=== PATIENT | male | born 1930 | race Caucasian/White ===

== ENCOUNTER 2018-03-06 13:38 | Inpatient (IN) ==
--- NOTE | 2018-03-06 14:03 | Emergency Department Note ---
Disposition Clinical Impression: JAIRON (acute kidney injury) Bladder cancer Qualifiers: Bladder location: unspecified site Qualified Code(s): C67.9 - Malignant neoplasm of bladder, unspecified Hydronephrosis Qualifiers: Hydronephrosis type: other Qualified Code(s): N13.39 - Other hydronephrosis Disposition: Admitted As Inpatient Condition: Fair Time of Disposition: 16:05 General Adult HPI - General Chief complaint: ED Abdominal Pain Stated complaint: right flank pain Time Seen by Provider: 03/06/18 13:40 Source: patient, EMS Limitations: no limitations Nursing Notes Reviewed: Yes Vital Signs Reviewed: Yes - History of Present Illness HPI Narrative: Austin Finn is an 87 year old male presenting to the emergency department for RLQ pain and urinary retention. He states that both issues began approximately 3 hours ago. He states that the pain is constant, does not radiate, and describes it as a dull ache. 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 He states that 2 years ago he had a stent placed in his right kidney that is periodically replaced every 6 months with the most recent replacement being in January of this year when he also had a tumor removed. He states that 1 year ago the stent became displaced, and he presented to the ED with similar symptoms of RLQ pain and urinary retention. He also states that he has a history of nephrolithiasis, but denies any CVA tederness. He denies any nausea, vomiting, diarrhea, dysuria, hematuria, fevers, or chills. He states this last BM was this morning and WNL and non-bloody. Patient's last oral intake was at noon today. I have reperformed and reviewed the history documented by the medical student, and I confirm its accuracy except as noted below. Onset (ago): hour(s) (3) Location: abdomen Radiation: non-radiation Pain Severity: moderate Pain Scale: 7 Quality: aching, dull Consistency: constant Improves with: nothing Worsens with: nothing Associated symptoms: Reports: other (urinary retention) Treatments Prior to Arrival: none - Related Data Home Medications Medication Instructions Recorded Confirmed Aspirin [Lo-Dose Aspirin EC] 81 mg PO DAILY 07/22/17 03/06/18 Atorvastatin Calcium [Lipitor] 40 mg PO HS 07/22/17 03/06/18 Carvedilol [Coreg] 6.25 mg PO BIDWM 07/22/17 03/06/18 Ferrous Sulfate 325 mg PO DAILY 07/22/17 03/06/18 Ketoconazole 2% CRM [Nizoral Cream] 1 appl TP DAILY 07/22/17 03/06/18 Lactulose 30 ml PO BID PRN 07/22/17 03/06/18 Pantoprazole Sodium [Protonix] 40 mg PO DAILY 07/22/17 03/06/18 Polyethylene Glycol 3350 [MiraLAX] 17 gm PO Q12H PRN 07/22/17 03/06/18 Selenium Sulfide 1 appl TP DAILY PRN 07/22/17 03/06/18 Sodium Bicarbonate 650 mg PO BID 07/22/17 03/06/18 amLODIPine [Norvasc] 5 mg PO DAILY 07/22/17 03/06/18 Melatonin [Melatin] 3 mg PO HS PRN 08/10/17 03/06/18 Dextran 70/Hypromellose 1 drop BOTH EYES BID 01/29/18 03/06/18 [Artificial Tears Eye Drops] Lidocaine Patch [Lidoderm 5% patch] 1 patch TP DAILY PRN 01/29/18 03/06/18 Methyl Salicylate/Menthol [Muscle 35 gm TP Q12H PRN 01/29/18 03/06/18 Rub Cream] Vit C/Vit E AC/Lut/Mineral 1 1 each PO BID 01/29/18 03/06/18 [Prosight with Lutein Capsule] Allergies Allergy/AdvReac Type Severity Reaction Status Date / Time No Known Allergies Allergy Verified 01/29/18 07:22 Constitutional: Denies: fever, chills, weakness, weight change Eyes: Denies: eye pain, eye discharge, vision change ENT ED: Denies: ear pain, throat pain, dental pain, hearing loss, epistaxis, congestion, dysphagia Cardiovascular: Denies: chest pain, palpitations, dyspnea on exertion, edema, syncope Respiratory: Denies: cough, dyspnea, wheezes, hemoptysis, stridor Gastrointestinal: Reports: as per HPI, abdominal pain. Denies: nausea, vomiting, diarrhea, constipation, hematemesis, melena, hematochezia Genitourinary: Reports: urgency. Denies: dysuria, frequency, hematuria Musculoskeletal: Denies: back pain, neck pain, arthralgia, myalgia Integumentary: Denies: rash, abrasion, lesions Neurological: Denies: headache, weakness, numbness, paresthesias, confusion, abnormal gait, vertigo Psychiatric: Denies: anxiety, depression, suicidal thoughts, homicidal thoughts, auditory hallucinations, visual hallucinations Endocrine: Denies: fatigue Hematological/Lymphatic: Denies: easy bleeding, easy bruising Allergic/Immunologic: Denies: facial swelling, urticaria Past Medical History - Past Medical History Attestation: Yes The following information was validated with the patient. Source: patient Medical history: Reports: cancer, GERD, hyperlipidemia, hypertension, renal disease Psychiatric history: Reports: anxiety - Social History Smoking Status: Never smoker Smokeless Tobacco Status: No Alcohol use: Reports: none Drug use: Reports: none Physical Exam - General Limitations: no limitations General appearance: alert, in no apparent distress - Head Head exam: atraumatic, normocephalic, normal inspection - Eye Eye exam: Present: normal appearance, PERRL, EOMI - ENT ENT exam: normal exam, normal oropharynx, mucous membranes moist - Neck Neck exam: Present: normal inspection, full ROM, trachea midline - Chest Chest inspection: Present: normal inspection, symmetric chest wall rise - Respiratory Respiratory exam: Present: normal lung sounds bilaterally - Cardiovascular Cardiovascular exam: Present: regular rate, normal rhythm, normal heart sounds - Abdominal Exam Abdominal exam: Present: soft, tenderness (Suprapubic, right lower quadrant), scar (healed surgical scars). Absent: distention, guarding, rebound, rigidity Abdominal tenderness: Present: RLQ - Extremities Exam Extremities exam: Present: normal inspection, full ROM. Absent: tenderness, pedal edema - Back Exam Back exam: Present: normal inspection, full ROM, tenderness (Right flank), CVA tenderness (R) - Neurological Exam Neurological exam: Present: alert, oriented X3 - Psychiatric Psychiatric exam: Present: normal affect, normal mood - Skin Skin exam: Present: warm, dry, intact, normal color Course Course Narrative: Male patient was the history of left nephrectomy presenting with likely complications due to his stent placed in January on the right. Patient reports that he has not been able to urinate for 3 hours prior to coming to the emergency department. He has no other complaints at this time. He is requesting pain medication. We will get a workup on patient and contact urology. We did do a bedside ultrasound which showed a decompressed bladder and right-sided hydronephrosis. Basic labs were ordered. Patient has not made any urine while in the emergency department. He is complaining of pain. The pain seems to be more so on the right lower quadrant suprapubic area. He does have some mild right flank pain as well. - Reevaluation(s) Reevaluation #1: Patient's creatinine is elevated. This is higher than it has been before. We will discuss this with Dr. Maza. Time: 15:40 - Consultations Consultation #1: I spoke with Dr. Maza. We discussed that the patient has a solitary kidney and likely hydronephrosis on bedside ultrasound as well as a compressed bladder. He expresses understanding and states the plan will be to keep patient nothing by mouth tonight for likely surgery in the morning. Time: 13:58 Consultation #2: I recontacted Dr. Maza with urology. We discussed that the patient's creatinine is elevated I again expressed the patient has a solitary kidney and my concerns of the patient's creatinine is elevated with only a single kidney.. He states that the plan is still for likely surgery in the morning. Time: 15:57 Vital Signs Temperature 97.8 F 03/06/18 13:43 Pulse Rate 65 03/06/18 13:43 Respiratory Rate 18 03/06/18 13:43 Blood Pressure 167/82 03/06/18 13:43 O2 Sat by Pulse Oximetry 100 03/06/18 13:43 Temperature 97.8 F 03/06/18 13:43 Pulse Rate 65 03/06/18 13:43 Respiratory Rate 18 03/06/18 13:43 Blood Pressure 167/82 03/06/18 13:43 O2 Sat by Pulse Oximetry 100 03/06/18 13:43 Oxygen Delivery Oxygen Delivery Room Air Procedures - Ultrasound-Other Narrative: Bedside ultrasound performed by me showed a right-sided hydronephrosis. As well as a decompressed bladder. Medical Decision Making - Medical Records Medical records reviewed: Yes I reviewed the patient's medical records. - Lab Data Lab results reviewed: Yes I reviewed the patient's lab results. Result diagrams: 03/06/18 14:53 03/06/18 14:53 Lab Results 03/06/18 03/06/18 Range/Units 14:53 14:53 WBC 13.4 H (4.3-11.1) K/mcL RBC 4.28 (4.19-5.50) M/mcL Hgb 11.9 L (12.9-16.9) g/dL Hct 37.5 (37.5-50.1) % MCV 87.6 (83.0-100.0) fL MCH 27.8 L (28.0-33.3) pg MCHC 31.7 (31.6-35.5) g/dL RDW 14.4 (11.5-14.5) % Plt Count 266 (140-400) K/mcL MPV 9.7 (9.4-12.4) fL Immature Gran % 0.3 (0-4) % Seg Neutrophils % 79.2 % Lymphocytes % 10.8 % Monocytes % 9.1 % Eosinophils % 0.4 % Basophils % 0.2 % Neutrophils # 10.6 H (1.6-8.9) K/mcL Lymphocytes # 1.5 (0.6-4.6) K/mcL Monocytes # 1.2 (0.0-1.3) K/mcL Eosinophils # 0.1 (0.0-0.6) K/mcL Basophils # 0.0 (0.0-0.2) K/mcL Immature Plt Fraction 1.7 (1.1-6.1) % Sodium 136 (136-145) mEq/L Potassium 4.8 (3.5-5.1) mEq/L Chloride 105 (98-107) mEq/L Carbon Dioxide 26 (23-29) mEq/L BUN 31 H (8-23) mg/dL Creatinine 3.13 H (0.70-1.30) mg/dL Est GFR ( Amer) 23 L (> 60) Est GFR (Non-Af Amer) 19 L (> 60) BUN/Creatinine Ratio 10 (6-26) Glucose 123 H (70-105) mg/dL Calculated Osmolality 290 (280-300) Calcium 9.0 (8.6-10.3) mg/dL - EKG Data EKG #1 EKG attestation: Yes I reviewed and interpreted this EKG. EKG results narrative: Normal sinus rhythm at a rate of 67. IA interval was not measured. QRS duration is 94. QT is 392. QTC is 414. No signs of acute ischemia. No signs of the pretibial forgot it. No significant change from previous EKG dated 07/30/2014. He was bradycardic at that time and the patient is not bradycardic at this time. Attestation Statement - Attestation Attestation: I examined this patient and my medical decision-making was reviewed with the Resident Physician, Dr. Almeida. I agree with the documented findings, disposition and treatment plan as described except to the extent set forth below. Patient is an 87-year-old white male with a history of metastatic bladder CA with resulting left nephrectomy 3 years ago who presents emergency permit today with right lower quadrant pain and urinary retention over the past 3 hours. Patient rates his pain as 7 out of 10 in severity and states he has not passed any urine in the past 3 hours. Patient has a renal stent in the right which is his solitary kidney which she has had revision as recently as a year ago due to failure of the extent which presented with very similar symptoms to today. Patient denies any fevers or chills, no nausea vomiting, no back or flank pain, no other associated symptoms. I agree with patient's physical exam findings as documented. Vital signs are stable. Bedside ultrasound was performed by Dr. Almeida on arrival and patient was found to have a collapsed bladder as well as right hydronephrosis. Based on this initial ultrasound we contacted urology, Dr. Maza is medication aid today and discussed his situation with failed stents in the past recurrent right lower quadrant pain and urinary retention unable to pass any urine and associated ult rasound findings. He agreed to see the patient in consultation after admission to the hospitalist service. Patient had labs ordered, including urinalysis and is hemodynamically stable at this time will receive pain and nausea medications for symptoms. Serum creatinine came back significantly elevated for him compared to prior values at greater than 3. We did call back Dr. Maza to notify him of this elevated creatinine inability to urinate and right [place] with a solitary kidney. He stated he would see the patient in the morning. Patient was admitted to the hospitalist service for further evaluation and management he remains hemodynamically stable at this time.
[2018-03-06] MEDS ORDERED: *HR* FentaNYL (PF) 100 MCG/2 ML VIAL IVP ONE (14:38)
[2018-03-06] MEDS ORDERED: *HR* HYDROmorphone 2 MG/ML SYRINGE IVP STA (14:43)
[2018-03-06 15:05] LABS: Basophils % 0.2 %; Eosinophils # 0.1 K/mcL (0.0-0.6); Eosinophils % 0.4 %; Hematocrit 37.5 % (37.5-50.1); Hemoglobin 11.9 g/dL (12.9-16.9); Immature Granulocytes % 0.3 % (0-4); Immature Platelets 1.7 % (1.1-6.1); Lymphocytes # 1.5 K/mcL (0.6-4.6); Lymphocytes % 10.8 %; Mean Corpuscular HGB Conc 31.7 g/dL (31.6-35.5); Mean Corpuscular Hemoglobin 27.8 pg (28.0-33.3); Mean Corpuscular Volume 87.6 fL (83.0-100.0); Mean Platelet Volume 9.7 fL (9.4-12.4); Monocytes # 1.2 K/mcL (0.0-1.3); Monocytes % 9.1 %; Neutrophils # 10.6 K/mcL (1.6-8.9); Platelet Count 266 K/mcL (140-400); Red Blood Count 4.28 M/mcL (4.19-5.50); Red Cell Distribution Width 14.4 % (11.5-14.5); Segmented Neutrophils % 79.2 %
[2018-03-06 15:34] LABS: Potassium 4.8 mEq/L (3.5-5.1)
[2018-03-06] MEDS ORDERED: Naloxone 0.4 MG/ML INJ IVP PRN (16:42)
--- NOTE | 2018-03-06 16:54 | Internal Med History&Physical ---
Date of Encounter: 03/06/18 Time of Encounter: 16:49 Internal Medicine - H&P: HPI Chief complaint: not makig urine Admitted From: Home Plans for Post Hospital Care: Home History of present illness: Mr. 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 as per patient his symptoms started about noon on admission afternoon and have progressively worsened. he has the sensation that he needs to urinate however is unable to do so. his symptoms are also associated with back pain. he reports that he has similar symptoms in the past and it was due to stent blockage and he had to undergo stent replacement. He states that the pain is constant, does not radiate, and describes it as a dull ache. he cannot recall associated factors, cannot recall alleviating or aggravating factors He denies any nausea, vomiting, diarrhea, dysuria, hematuria, fevers, or chills, CP, SOB , palpitations. He states this last BM was this morning and WNL and non-bloody. Patient's last oral intake was at noon today. Past Med Surg Social Fam HX - Past Medical History Medical history: cancer, GERD, hyperlipidemia, hypertension, renal disease Additional medical history: Bladder CA. CAD. Anemia. Constipation. Tremors Psychiatric history: anxiety - Past Surgical History Additional surgical history: Left Kidney Removed. Right Kidney Stent(s). Coronary Angioplasty/Stent - Social History Smoking Status: Never smoker Smokeless Tobacco Status: No Alcohol use: none Drug use: none Internal Medicine - H&P: Meds Aspirin [Lo-Dose Aspirin EC] 81 mg PO DAILY 07/22/17 [History] Atorvastatin Calcium [Lipitor] 40 mg PO HS 07/22/17 [History] Carvedilol [Coreg] 6.25 mg PO BIDWM 07/22/17 [History] Ferrous Sulfate 325 mg PO DAILY 07/22/17 [History] Ketoconazole 2% CRM [Nizoral Cream] 1 appl TP DAILY 07/22/17 [History] Lactulose 30 ml PO BID PRN 07/22/17 [History] Pantoprazole Sodium [Protonix] 40 mg PO DAILY 07/22/17 [History] Polyethylene Glycol 3350 [MiraLAX] 17 gm PO Q12H PRN 07/22/17 [History] Selenium Sulfide 1 appl TP DAILY PRN 07/22/17 [History] Sodium Bicarbonate 650 mg PO BID 07/22/17 [History] amLODIPine [Norvasc] 5 mg PO DAILY 07/22/17 [History] Melatonin [Melatin] 3 mg PO HS PRN 08/10/17 [History] Dextran 70/Hypromellose [Artificial Tears Eye Drops] 1 drop BOTH EYES BID 01/29/18 [History] Lidocaine Patch [Lidoderm 5% patch] 1 patch TP DAILY PRN 01/29/18 [History] Methyl Salicylate/Menthol [Muscle Rub Cream] 35 gm TP Q12H PRN 01/29/18 [History] Vit C/Vit E AC/Lut/Mineral 1 [Prosight with Lutein Capsule] 1 each PO BID 01/29/18 [History] Allergy/AdvReac Type Severity Reaction Status Date / Time No Known Allergies Allergy Verified 01/29/18 07:22 All Systems PM: A 10-system review of systems was performed and is negative for pertinent findings except as documented above in the HPI. - Constitutional Vitals: Temp Pulse Resp BP Pulse Ox 99.3 F 77 14 166/79 97 03/06/18 16:44 03/06/18 16:44 03/06/18 16:44 03/06/18 16:44 03/06/18 16:44 Exam: General: Patient is alert, oriented, in moderate distress, Head: atraumatic, normocephalic, Eye: normal appearance, PERRL, no scleral icterus, no conjunctival injection ENT: mucous membranes moist, normal external ear exam Neck: normal inspection, trachea midline, full ROM, no carotid bruits Chest: normal inspection, symmetric chest rise Respiratory: Good respiratory effort. Bilateral breath sounds are clear without wheezing, crackles, or rhonchi. Cardiovascular: Regular rate and rhythm. s1 and s2 No clicks, rubs, gallops, or murmors. Abdomen: Bowel sounds present normoactive x-4 quadrants. Abdomen is soft, nondistended. no Epigastric tenderness. No guarding or rebound. No organomegaly noted, obese, no CVA tenderness musculoskeletal: Spontaneously moving all extremities. no edema, no calf tenderness Skin: warm, dry, intact. Neuro: Alert and oriented x4. Sensation light touch intact. Cranial nerves 2-12 is intact. no focal deficit , intensional tremor Psych: Patient's affect is normal Internal Med - H&P Results - Labs CBC & Chem 7: 03/06/18 14:53 03/06/18 14:53 Labs: Short CBC 03/06/18 Range/Units 14:53 WBC 13.4 H (4.3-11.1) K/mcL Hgb 11.9 L (12.9-16.9) g/dL Hct 37.5 (37.5-50.1) % Plt Count 266 (140-400) K/mcL Neutrophils # 10.6 H (1.6-8.9) K/mcL BMP 03/06/18 14:53 Sodium 136 Potassium 4.8 Chloride 105 Carbon Dioxide 26 BUN 31 H Creatinine 3.13 H Glucose 123 H Calcium 9.0 - EKG Data -: EKG Interpreted by Myself (NSR, QTC 414) - EKG Data Prior EKG available for review: yes When compared to previous EKG: there is no significant change - Assessment and plan (1) Acute renal failure (ARF) Current Visit: Yes Status: Acute Assessment and plan: post obstructive has history of Right ureteral obstruction s/p stent placement and bladder cancer s/p transurethral resection of bladder tumor urology consulted by myself and the ED physician - i discussed that the patient has only the right kidney and now with obstruction in pain and needing possible intervention- he would like the patient NPO until the AM for intervention. will contact IR for ?nephrostomy tube placement - i discussed the case with taxi driver IR who also recommends urology intervention I discussed the plan above with the patient and family and they are in agreement avoid nephrotoxic medications I discussed case with glass belt sander Dr. Miles. strict I/O bladder scan Q4H Ct A/P STAT ceftriaxone IV follow BMP Q6H for electrolytes first one STAT Qualifiers: Acute renal failure type: unspecified Qualified Code(s): N17.9 - Acute kidney failure, unspecified (2) Obstructive uropathy Current Visit: Yes Status: Acute Assessment and plan: has history of Right ureteral obstruction s/p stent placement and bladder cancer s/p transurethral resection of bladder tumor has right sided hydronephrosis on US in the ED urology consulted in the ED recommended further intervention in the AM IR consulted for possible nephrostomy tube placement nephrology on board (3) Bladder cancer Current Visit: Yes Status: Acute Assessment and plan: s/p transurethral resection of bladder tumor urology on board Qualifiers: Bladder location: unspecified site Qualified Code(s): C67.9 - Malignant neoplasm of bladder, unspecified (4) Hypertension Current Visit: Yes Status: Acute Assessment and plan: continue home medications if not CI Qualifiers: Hypertension type: essential hypertension Qualified Code(s): I10 - Essential (primary) hypertension (5) DVT prophylaxis Current Visit: Yes Status: Acute Assessment and plan: heparin sc - Time Spent With Patient Total time spent is greater than 50% in coordination of care (as documented) at patient's floor/unit and/or counseling patient:
[2018-03-06 17:34] LABS: INR 1.1; Prothrombin Time 12.4 Seconds (9.4-12.1)
[2018-03-06 17:37] LABS: Activated Partial Thrombo Time 30.8 Seconds (26.0-36.0)
[2018-03-06] MEDS ORDERED: Acetaminophen 325 MG TABLET PO PRN (19:18)
--- NOTE | 2018-03-06 19:44 | Urology - Consult Note ---
Date of Encounter: 03/06/18 Time of Encounter: 19:42 - Assessment and Plan (1) JAIRON (acute kidney injury) Current Visit: Yes Status: Acute Assessment and plan: Secondary to obstruction (non-functioning stent) of solitary right kidney. Patient is not infected, hyperkalemic or uremic. His renal function is worsening as would be expected. Discussed with ER, hospitalist, daughter and IR that acute complete obstruction of the kidney does not result in any type of irreversible renal damage for a minimum of several weeks post the date the obstruction occurs. As such, he should be diverted urgently (within 24 hours) not emergently. Plan: He has been placed on the OR schedule for later this evening. (2) Hydronephrosis Current Visit: Yes Status: Acute Assessment and plan: CT images, outpatient records, and admission notes reviewed. Secondary to obstruction (non-functioning stent) of solitary right kidney. Patient is not infected, hyperkalemic or uremic. His renal function is worsening as would be expected. Discussed with ER, hospitalist, daughter and IR that acute complete obstruction of the kidney does not result in any type of irreversible renal damage for a minimum of several weeks post the date that complete obstruction occurs. As such, he should be diverted urgently (within 24 hours) not emergently. His records do not indicate a reason why a new stent should not result in a long-term solution. Plan: He has been placed on the OR schedule for later this evening. Qualifiers: Hydronephrosis type: unspecified Qualified Code(s): N13.30 - Unspecified hydronephrosis (3) Bladder cancer Current Visit: Yes Status: Acute Assessment and plan: Continue surveillance schedule with Dr. Orozco. Qualifiers: Bladder location: unspecified site Qualified Code(s): C67.9 - Malignant neoplasm of bladder, unspecified Urology CN:HPI Consult date: 03/06/18 History of present illness: Hx of left nephroureterectomy for urothelial cell carcinoma. No with chronic right ureteral stent for obstruction. Stent changed last month but has become non-functional with anuria. He is admitted through the ER. CT shows hydro and patient with decreasing GFR into 20s. I was consulted for evaluation and management. Past Med Surg Social Fam HX - Past Medical History Medical history: cancer, GERD, hyperlipidemia, hypertension, renal disease Additional medical history: Bladder CA. CAD. Anemia. Constipation. Tremors Psychiatric history: anxiety - Past Surgical History Additional surgical history: Left Kidney Removed. Right Kidney Stent(s). Coronary Angioplasty/Stent - Social History Smoking Status: Never smoker Smokeless Tobacco Status: No Alcohol use: none Drug use: none Medications and Allergies Aspirin [Lo-Dose Aspirin EC] 81 mg PO DAILY 07/22/17 [History] Atorvastatin Calcium [Lipitor] 40 mg PO HS 07/22/17 [History] Carvedilol [Coreg] 6.25 mg PO BIDWM 07/22/17 [History] Ferrous Sulfate 325 mg PO DAILY 07/22/17 [History] Ketoconazole 2% CRM [Nizoral Cream] 1 appl TP DAILY 07/22/17 [History] Lactulose 30 ml PO BID PRN 07/22/17 [History] Pantoprazole Sodium [Protonix] 40 mg PO DAILY 07/22/17 [History] Polyethylene Glycol 3350 [MiraLAX] 17 gm PO Q12H PRN 07/22/17 [History] Selenium Sulfide 1 appl TP DAILY PRN 07/22/17 [History] Sodium Bicarbonate 650 mg PO BID 07/22/17 [History] amLODIPine [Norvasc] 5 mg PO DAILY 07/22/17 [History] Melatonin [Melatin] 3 mg PO HS PRN 08/10/17 [History] Dextran 70/Hypromellose [Artificial Tears Eye Drops] 1 drop BOTH EYES BID 01/29/18 [History] Lidocaine Patch [Lidoderm 5% patch] 1 patch TP DAILY PRN 01/29/18 [History] Methyl Salicylate/Menthol [Muscle Rub Cream] 35 gm TP Q12H PRN 01/29/18 [History] Vit C/Vit E AC/Lut/Mineral 1 [Prosight with Lutein Capsule] 1 each PO BID 01/29/18 [History] Allergy/AdvReac Type Severity Reaction Status Date / Time No Known Allergies Allergy Verified 01/29/18 07:22 Review of Systems - Constitutional no chills, no fever(s) - EENT Nose, mouth and throat: no dry mouth, no headache(s) - Cardiovascular no chest pain, no diaphoresis - Respiratory no cough, no dyspnea - Gastrointestinal abdominal pain, no fecal incontinence - Genitourinary flank pain - Musculoskeletal no muscle weakness, no numbness - Integumentary no lesions, no rash - Neurological no confusion, no sensory deficit - Psychiatric no anxiety, no confusion Exam Initial Vital Signs Temp Pulse Resp BP Pulse Ox 97.8 F 65 18 167/82 100 03/06/18 13:43 03/06/18 13:43 03/06/18 13:43 03/06/18 13:43 03/06/18 13:43 - General physical appearance Present: well developed, well nourished, no distress - Eyes Present: normal ocular movement - ENT Present: normal nares, normal mucosa - Neck Present: trachea midline - Respiratory Present: normal respiratory effort - Abdomen Abdomen: Present: soft, non tender - Integumentary Present: no growths, no abnormal pigmentation - Neurologic Present: normal coordination - Musculoskeletal Present: other (essential tremor) Urology Results - Labs 03/06/18 14:53 03/06/18 19:42 Abnormal lab results WBC 13.4 K/mcL (4.3-11.1) H 03/06/18 14:53 Hgb 11.9 g/dL (12.9-16.9) L 03/06/18 14:53 MCH 27.8 pg (28.0-33.3) L 03/06/18 14:53 Neutrophils # 10.6 K/mcL (1.6-8.9) H 03/06/18 14:53 PT 12.4 Seconds (9.4-12.1) H 03/06/18 17:05 BUN 31 mg/dL (8-23) H 03/06/18 14:53 Creatinine 3.13 mg/dL (0.70-1.30) H 03/06/18 14:53 Est GFR ( Amer) 23 (> 60) L 03/06/18 14:53 Est GFR (Non-Af Amer) 19 (> 60) L 03/06/18 14:53 Glucose 123 mg/dL (70-105) H 03/06/18 14:53 Diabetes panel 03/06/18 Range/Units 14:53 Sodium 136 (136-145) mEq/L Potassium 4.8 (3.5-5.1) mEq/L Chloride 105 (98-107) mEq/L Carbon Dioxide 26 (23-29) mEq/L BUN 31 H (8-23) mg/dL Creatinine 3.13 H (0.70-1.30) mg/dL Glucose 123 H (70-105) mg/dL Calcium 9.0 (8.6-10.3) mg/dL Calcium panel 03/06/18 Range/Units 14:53 Calcium 9.0 (8.6-10.3) mg/dL Pituitary panel 03/06/18 Range/Units 14:53 Sodium 136 (136-145) mEq/L Potassium 4.8 (3.5-5.1) mEq/L Chloride 105 (98-107) mEq/L Carbon Dioxide 26 (23-29) mEq/L BUN 31 H (8-23) mg/dL Creatinine 3.13 H (0.70-1.30) mg/dL Glucose 123 H (70-105) mg/dL Calcium 9.0 (8.6-10.3) mg/dL Adrenal panel 03/06/18 Range/Units 14:53 Sodium 136 (136-145) mEq/L Potassium 4.8 (3.5-5.1) mEq/L Chloride 105 (98-107) mEq/L Carbon Dioxide 26 (23-29) mEq/L BUN 31 H (8-23) mg/dL Creatinine 3.13 H (0.70-1.30) mg/dL Glucose 123 H (70-105) mg/dL Calcium 9.0 (8.6-10.3) mg/dL All other labs normal. - Imaging CT scan - pelvis: image reviewed US - abdomen: image reviewed (reviewed and interpreted independently) Consult Discharge Plan - Plan Referrals: NONE,PCP [Primary Care Provider] -
--- NOTE | 2018-03-06 20:08 | Anesthesia Evaluation PreOp ---
Date of Encounter: 03/06/18 Time of Encounter: 20:06 - Past History Planned Operation: Cystoscopy & stent exchange Cardiac History: [place] (2014), HTN, Hyperlipidemia, Cardiac Stent (2005), Other (CAD. ECHO 08/31/2014 - EF 60%, mild diastolic dysfx, No significant valvular dz) Pulmonary History: Denies Any Significant HX [employer] OPERATOR History: Other (Tremors, Anxiety) Other Medical History: Renal (Hx Bladder CA s/p tumor resection x 2 - most recently 01/29/2018. Stage 3 CKDz), GERD Anesthesia History: No Prior Anesthetic Complications, Past Anesthesia (Appy, T&A, L-nephrectomy) Alcohol Use: none Drug use: none Medications and Allergies Aspirin [Lo-Dose Aspirin EC] 81 mg PO DAILY 07/22/17 [History] Atorvastatin Calcium [Lipitor] 40 mg PO HS 07/22/17 [History] Carvedilol [Coreg] 6.25 mg PO BIDWM 07/22/17 [History] Ferrous Sulfate 325 mg PO DAILY 07/22/17 [History] Ketoconazole 2% CRM [Nizoral Cream] 1 appl TP DAILY 07/22/17 [History] Lactulose 30 ml PO BID PRN 07/22/17 [History] Pantoprazole Sodium [Protonix] 40 mg PO DAILY 07/22/17 [History] Polyethylene Glycol 3350 [MiraLAX] 17 gm PO Q12H PRN 07/22/17 [History] Selenium Sulfide 1 appl TP DAILY PRN 07/22/17 [History] Sodium Bicarbonate 650 mg PO BID 07/22/17 [History] amLODIPine [Norvasc] 5 mg PO DAILY 07/22/17 [History] Melatonin [Melatin] 3 mg PO HS PRN 08/10/17 [History] Dextran 70/Hypromellose [Artificial Tears Eye Drops] 1 drop BOTH EYES BID 01/29/18 [History] Lidocaine Patch [Lidoderm 5% patch] 1 patch TP DAILY PRN 01/29/18 [History] Methyl Salicylate/Menthol [Muscle Rub Cream] 35 gm TP Q12H PRN 01/29/18 [History] Vit C/Vit E AC/Lut/Mineral 1 [Prosight with Lutein Capsule] 1 each PO BID 01/29/18 [History] Allergy/AdvReac Type Severity Reaction Status Date / Time No Known Allergies Allergy Verified 01/29/18 07:22 - Meds/Allergy Pre-op Review Medications Reviewed: Yes Allergies Reviewed: Yes Beta Blockers on Current Med List: Yes (Carvedilol) If Beta Blockers taken, Date/Time (Last Dose taken): prior to arrival at Hospital Facility Anesthesia Results - Labs 03/06/18 14:53 03/06/18 19:42 Laboratory Results Laboratory Tests 03/06/18 03/06/18 14:53 17:05 PT 12.4 H INR 1.1 APTT 30.8 Est GFR (Non-Af Amer) 19 L Impressions Abdomen/Pelvis CT 03/06/18 16:33 IMPRESSION: Ureteral stent extending from the mid right ureter into the bladder. Moderate hydroureteronephrosis proximal to the stent with layering high attenuation in renal calices. Urothelial thickening and prominent perinephric stranding. Findings concerning for infection. Layering high attenuation may represent blood or debris. 4.4 x 4.3 cm multiloculated cystic structure in the inferior right kidney, increased since previous exam which may be related to the obstruction. Bladder is not well distended but appears thickened and inflamed. D/ / Marlys Ramirez MD / Marlys Ramirez MD Interpreting Provider: Marlys Ramirez MD - Imaging EKG: image reviewed (59bpm -SINUS BRADYCARDIA Electronically Signed On 08-02-2017 8:25:08 EDT by Tommy Gutierrez) Anesthesia Exam Vital Signs Temp Pulse Resp BP Pulse Ox 03/06/18 19:58 99.1 F 74 16 148/71 96 03/06/18 16:44 99.3 F 77 14 166/79 97 03/06/18 16:03 73 16 148/78 100 03/06/18 13:43 97.8 F 65 18 167/82 100 Intake and Output 03/06/18 03/06/18 03/06/18 07:59 15:59 23:59 Intake Total 0 / 0 Output Total 0 / 0 Balance 0 / 0 Intake: Oral 0 / 0 Output: Urine 0 / 0 Other: Weight 102.603 kg 102.965 kg Patient Weight 03/06/18 23:59 Weight 102.965 kg Height: 6'2" Weight: 227# BMI = 29 - HEENT Pupil (Motor): Pupils equal, EOMI Mallampati: III Teeth: Normal Oral Opening: Greater than 3 - [employer] LOC: Oriented [employer] Motor: Normal RUE, Normal LUE, Normal RLE, Normal LLE, Normal Face [employer] Sensory: Normal: RUE, LUE, RLE, LLE, Face - Cardiac Rhythm: Regular Murmur: None - Pulmonary Breath Sounds: bilateral Clear Respiratory Effort: Symmetrical Anesthesia Assess/Plan ASA Score: 3 (Bladder Ca, stage 3 CKD, HTN, Chol, Anxiety, Essential Tremor) Level of consciousness: Cooperative, Oriented, Tranquil Anesthetic Plan: General Monitoring Plan: Standard Monitors Recovery Plan: PACU Anes Supervising Prov Stmt: Pt seen/evaluated, R&B discussed, questions answered and consent obtained - MD Kristine
[2018-03-06 20:34] LABS: Calcium 8.7 mg/dL (8.6-10.3); Potassium 5.2 mEq/L (3.5-5.1)
[2018-03-06] MEDS ORDERED: Lactulose Oral Soln 20 GM/30 ML UDC PO PRN (20:38)
[2018-03-06] MEDS: cefTRIAXone 2,000 MG in Water for inj. (sterile) 20 ML 20 ML IVP SCH (20:38)
[2018-03-06] MEDS ORDERED: Lidocaine -MPF 2% 2 ML VIAL ONE (20:39)
[2018-03-06] MEDS ORDERED: *HR* FentaNYL (PF) 100 MCG/2 ML VIAL ONE (20:40)
[2018-03-06] MEDS ORDERED: *HR* Propofol 200 MG/20 ML VIAL IVP ONE (20:40)
[2018-03-06] MEDS ORDERED: Isovue-300 30 ML VIAL ONE (21:25)
[2018-03-06] MEDS ORDERED: Dexamethasone 4 MG/ML VIAL ONE (22:20)
[2018-03-06] MEDS ORDERED: Ondansetron 4 MG/2 ML VIAL ONE (22:20)
[2018-03-06] MEDS ORDERED: EPHEDrine 50 MG/ML VIAL ONE (22:24)
--- NOTE | 2018-03-06 22:24 | Operative Note ---
Date of procedure: 03/06/18 Pre-op diagnosis: Right hydronephrosis, acute renal failure Post-op diagnosis: same Procedure: Cystoscopy, right double-J stent exchange, intraoperative interpretation of radiographic images by surgeon in real time to facilitate procedure Implants: 7 x 28 right double-J stent Complications: None Anesthesia: GETA Surgeon: Audie Maza Was there an assistant guest services manager present: No Estimated blood loss (cc): 0 Specimen: none Condition: stable Disposition: PACU Procedure in Detail: Very pleasant 87-year-old gentleman with history of left nephroureteral ureterectomy. He has a solitary right kidney. At some point a course last year he developed obstruction in his right ureter. This is been managed with intermittent stent changes. The patient stent was changed last month. He presented to the emergency arm today with right-sided flank pain and anuria. He had decreased renal function, but no sepsis, uremia or hyperkalemia. Stent change is indicated. The patient was brought to the operating theater placed on the table in supine position identified by name, date of then administered a general anesthetic. The patient was placed in dorsal lithotomy then prepped and draped in the normal sterile fashion. The cystoscope was inserted into the urethral meatus and advanced toward the bladder under direct visualization. The existing right double-J stent was removed. Under fluoroscopic guidance a Glidewire was advanced into the right renal pelvis. Over the Glidewire a 7 x 28 double-J stent was advanced. Once the stent was felt to be in good position the Glidewire was removed. Intraoperative fluoroscopy confirmed stent in good position. This ended the operative procedure
--- NOTE | 2018-03-06 22:56 | Anesthesia Evaluation Post Op ---
Date of Encounter: 03/06/18 Time of Encounter: 22:54 - Vital Signs Vital Signs: Vital Signs/O2 Sat/Glucose, Most Current Temp Pulse Resp BP Pulse Ox 03/06/18 22:52 74 14 143/64 93 03/06/18 22:42 76 16 138/64 95 03/06/18 22:32 100.2 F H 79 16 131/63 95 03/06/18 19:58 99.1 F 74 16 148/71 96 - Lungs Lungs: Clear Ascult./Percussion - Airway Airway: Non-obstructed - Cardiovascular Regular Rate, Baseline Rhythm - Mental Status Mental Status: Alert & Oriented, Answers Appropriately - Pain Pain Scale: 0 Pain Scale used: Numeric (1 - 10) - Nausea Vomiting Nausea Vomiting: Not Present - Hydration Hydration: Ice chips, Has not voided - Discharge PostOp Status: Transfer Patient to floor Anes Supervising Prov Stmt: Pt seen/evaluated, VSS and has met criteria for discharge to floor. - MD Kristine
[2018-03-07] MEDS: Artificial Tears SOLN 15 ML BOTTLE BOTH EYES SCH ×3 (00:08→21:33)
[2018-03-07] MEDS: LUTEIN PO SCH ×3 (00:10→21:48)
[2018-03-07] MEDS: VIT C PO SCH ×3 (00:10→21:48)
[2018-03-07] MEDS: MINERAL PO SCH ×3 (00:10→21:48)
[2018-03-07] MEDS: *HR* Heparin 5,000 UNIT/ML VIAL SQ SCH ×4 (00:10→21:33)
[2018-03-07] MEDS: VIT E AC PO SCH ×3 (00:10→21:48)
[2018-03-07] MEDS: LUT PO SCH ×3 (00:10→21:48)
[2018-03-07 00:40] LABS: Basophils % 0.2 %; Hematocrit 34.8 % (37.5-50.1); Hemoglobin 11.1 g/dL (12.9-16.9); Immature Granulocytes % 0.7 % (0-4); Lymphocytes # 1.1 K/mcL (0.6-4.6); Lymphocytes % 5.7 %; Mean Corpuscular HGB Conc 31.9 g/dL (31.6-35.5); Mean Corpuscular Volume 87.7 fL (83.0-100.0); Mean Platelet Volume 9.9 fL (9.4-12.4); Monocytes # 0.9 K/mcL (0.0-1.3); Monocytes % 4.8 %; Neutrophils # 16.4 K/mcL (1.6-8.9); Platelet Count 235 K/mcL (140-400); Red Blood Count 3.97 M/mcL (4.19-5.50); Red Cell Distribution Width 14.4 % (11.5-14.5); Segmented Neutrophils % 88.6 %
[2018-03-07 01:01] LABS: Calcium 8.8 mg/dL (8.6-10.3); Magnesium 2.2 mg/dL (1.6-2.6); Phosphorous 2.6 mg/dL (2.7-4.5); Potassium 5.8 mEq/L (3.5-5.1)
[2018-03-07 08:12] LABS: Hematocrit 34.6 % (37.5-50.1); Hemoglobin 10.9 g/dL (12.9-16.9); Mean Corpuscular HGB Conc 31.5 g/dL (31.6-35.5); Mean Corpuscular Hemoglobin 27.7 pg (28.0-33.3); Platelet Count 225 K/mcL (140-400); Red Blood Count 3.93 M/mcL (4.19-5.50); Red Cell Distribution Width 14.4 % (11.5-14.5)
[2018-03-07] MEDS: amLODIPine 5 MG TABLET PO SCH (08:21)
[2018-03-07 08:23] LABS: Calcium 8.5 mg/dL (8.6-10.3); Potassium 5.3 mEq/L (3.5-5.1)
--- NOTE | 2018-03-07 09:54 | Internal Med Progress Note ---
Hospitalist Progress Note - Encounter Date of Encounter: 03/07/18 Time of Encounter: 09:51 - Subjective Interval History: Mr. Finn is a 87 year old male with history of bladder cancer s/p tumor resection x 2 last one 01/29/18, left nephroureterectomy 09/11/2014, high-grade urothelial carcinoma was seen in the kidney staged at T1 cancer urethral tumor was staged at T8 cancer margins were negative and recent Right ureteral obstruction s/p Exchange of right ureteral stent on 01/29/18 , resented to the ED with inability to void on 03/06 he has the sensation that he needs to urinate however is unable to do so. his symptoms are also associated with back pain. he reports that he has similar symptoms in the past and it was due to stent blockage and he had to undergo stent replacement. He states that the pain is constant, does not radiate, and describes it as a dull ache. he cannot recall associated factors, cannot recall alleviating or aggravating factors Patient had Cystoscopy, right double-J stent exchange on 03/06, marikat is doing well, pain resolved, he has been making some urine. no UA was ldone will check UA add IVF nephrology consult - Exam Vitals: Temp Pulse Resp BP Pulse Ox 97.4 F L 62 14 124/67 97 03/07/18 06:31 03/07/18 06:31 03/07/18 06:31 03/07/18 06:31 03/07/18 06:31 Exam: General: Patient is alert, oriented, in moderate distress, Head: atraumatic, normocephalic, Eye: normal appearance, PERRL, no scleral icterus, no conjunctival injection ENT: mucous membranes moist, normal external ear exam Neck: normal inspection, trachea midline, full ROM, no carotid bruits Chest: normal inspection, symmetric chest rise Respiratory: Good respiratory effort. Bilateral breath sounds are clear without wheezing, crackles, or rhonchi. Cardiovascular: Regular rate and rhythm. s1 and s2 No clicks, rubs, gallops, or murmors. Abdomen: Bowel sounds present normoactive x-4 quadrants. Abdomen is soft, nondistended. no Epigastric tenderness. No guarding or rebound. No organomegaly noted, obese, no CVA tenderness musculoskeletal: Spontaneously moving all extremities. no edema, no calf tenderness Skin: warm, dry, intact. Neuro: Alert and oriented x4. Sensation light touch intact. Cranial nerves 2- 12 is intact. no focal deficit , intensional tremor Psych: Patient's affect is normal - Assessment and Plan (1) Acute renal failure (ARF) Current Visit: Yes Status: Acute Assessment and Plan: ARF from obstructive uropathy and single kidney conitnue IVF nephrology consult follow up Cr daily (2) Hyperkalemia Current Visit: Yes Status: Acute Assessment and Plan: from ARF, conitnue IVF (3) CKD (chronic kidney disease) stage 3, GFR 30-59 ml/min Current Visit: Yes Status: Acute Assessment and Plan: Cr 1.6-2 at baseline from single kidney (4) Hydronephrosis Current Visit: Yes Status: Acute Assessment and Plan: s/p stent exchange on 03/06 (5) Hypertension Current Visit: Yes Status: Acute (6) Obstructive uropathy Current Visit: Yes Status: Acute Assessment and Plan: s/p stent exchange on 03/06 (7) Bladder cancer Current Visit: Yes Status: Acute Assessment and Plan: s/p transurethral resection of bladder tumor urology on board - Time Spent with Patient Total time spent is greater than 50% in coordination of care (as documented) at patient's floor/unit and/or counseling patient: 25 - 35 minutes Plan of Care Discussed with: patient Internal Medicine: Result - Labs CBC & Chem 7: 03/07/18 07:53 03/07/18 07:53 Labs: Short CBC 03/06/18 03/07/18 03/07/18 Range/Units 14:53 00:28 07:53 WBC 13.4 H 18.5 H 20.3 H (4.3-11.1) K/mcL Hgb 11.9 L 11.1 L 10.9 L (12.9-16.9) g/dL Hct 37.5 34.8 L 34.6 L (37.5-50.1) % Plt Count 266 235 225 (140-400) K/mcL Neutrophils # 10.6 H 16.4 H (1.6-8.9) K/mcL BMP 03/06/18 03/06/18 03/07/18 14:53 19:42 00:28 Sodium 136 136 134 L Potassium 4.8 5.2 H 5.8 H Chloride 105 106 106 Carbon Dioxide 26 23 21 L BUN 31 H 36 H 37 H Creatinine 3.13 H 3.87 H 4.13 H Glucose 123 H 120 H 153 H Calcium 9.0 8.7 8.8 03/07/18 07:53 Sodium 136 Potassium 5.3 H Chloride 106 Carbon Dioxide 22 L BUN 42 H Creatinine 4.05 H Glucose 156 H Calcium 8.5 L - ABG Interpretation ABG results: PT/INR, D-dimer PT 12.4 Seconds (9.4-12.1) H 03/06/18 17:05 - Impressions Impressions Abdomen/Pelvis CT 03/06/18 16:33 IMPRESSION: Ureteral stent extending from the mid right ureter into the bladder. Moderate hydroureteronephrosis proximal to the stent with layering high attenuation in renal calices. Urothelial thickening and prominent perinephric stranding. Findings concerning for infection. Layering high attenuation may represent blood or debris. 4.4 x 4.3 cm multiloculated cystic structure in the inferior right kidney, increased since previous exam which may be related to the obstruction. Bladder is not well distended but appears thickened and inflamed. D/ / Marlys Ramirez MD / Marlys Ramirez MD Interpreting Provider: Marlys Ramirez MD Fluoroscopy 03/06/18 22:07 IMPRESSION: Intraoperative procedure D/ / Marlys Ramirez MD / Marlys Ramirez MD Interpreting Provider: Marlys Ramirez MD Consult Discharge Plan - Plan Referrals: NONE,PCP [Primary Care Provider] - ___ (1) Acute renal failure (ARF) Qualifiers: Acute renal failure type: unspecified Qualified Code(s): N17.9 - Acute kidney failure, unspecified (4) Hydronephrosis Qualifiers: Hydronephrosis type: unspecified Qualified Code(s): N13.30 - Unspecified hydronephrosis (5) Hypertension Qualifiers: Hypertension type: essential hypertension Qualified Code(s): I10 - Essential (primary) hypertension (7) Bladder cancer Qualifiers: Bladder location: unspecified site Qualified Code(s): C67.9 - Malignant neoplasm of bladder, unspecified
--- NOTE | 2018-03-07 10:33 | Urology Progress Note ---
Date of Encounter: 03/07/18 Time of Encounter: 10:31 - Assessment and Plan (1) JAIRON (acute kidney injury) Current Visit: Yes Status: Acute Assessment and plan: stabilized post stent with GFR of 14 this morning (15 yesterday morning). Anuria resolved. Plan: anticipate recover of renal function over the next several days. No further urologic interventions indicated. F/U for Q6 month stent changes as scheduled with Dr. Orozco. (2) Hydronephrosis Current Visit: Yes Status: Acute Assessment and plan: Addressed with stent change 03/06/18. Plan: outpatient f/u as scheduled Qualifiers: Hydronephrosis type: unspecified Qualified Code(s): N13.30 - Unspecified hydronephrosis (3) Bladder cancer Current Visit: Yes Status: Acute Assessment and plan: Continue outpatient surveillance with Dr. Orozco as scheduled. Qualifiers: Bladder location: unspecified site Qualified Code(s): C67.9 - Malignant neoplasm of bladder, unspecified Progress Note Subjective: no new complaints Objective Initial Vital Signs Temp Pulse Resp BP Pulse Ox 97.8 F 65 18 167/82 100 03/06/18 13:43 03/06/18 13:43 03/06/18 13:43 03/06/18 13:43 03/06/18 13:43 - General physical appearance Present: no distress - Respiratory Present: normal respiratory effort - Abdomen Absent: tender - Psychiatric Present: oriented to time, oriented to person, oriented to place - Labs 03/07/18 07:53 03/07/18 07:53 Diabetes panel 03/06/18 03/06/18 03/07/18 Range/Units 14:53 19:42 00:28 Sodium 136 136 134 L (136-145) mEq/L Potassium 4.8 5.2 H 5.8 H (3.5-5.1) mEq/L Chloride 105 106 106 (98-107) mEq/L Carbon Dioxide 26 23 21 L (23-29) mEq/L BUN 31 H 36 H 37 H (8-23) mg/dL Creatinine 3.13 H 3.87 H 4.13 H (0.70-1.30) mg/dL Glucose 123 H 120 H 153 H (70-105) mg/dL Calcium 9.0 8.7 8.8 (8.6-10.3) mg/dL 03/07/18 Range/Units 07:53 Sodium 136 (136-145) mEq/L Potassium 5.3 H (3.5-5.1) mEq/L Chloride 106 (98-107) mEq/L Carbon Dioxide 22 L (23-29) mEq/L BUN 42 H (8-23) mg/dL Creatinine 4.05 H (0.70-1.30) mg/dL Glucose 156 H (70-105) mg/dL Calcium 8.5 L (8.6-10.3) mg/dL Calcium panel 03/06/18 03/06/18 03/07/18 Range/Units 14:53 19:42 00:28 Calcium 9.0 8.7 8.8 (8.6-10.3) mg/dL Phosphorus 2.6 L (2.7-4.5) mg/dL 03/07/18 Range/Units 07:53 Calcium 8.5 L (8.6-10.3) mg/dL Phosphorus (2.7-4.5) mg/dL Pituitary panel 03/06/18 03/06/18 03/07/18 Range/Units 14:53 19:42 00:28 Sodium 136 136 134 L (136-145) mEq/L Potassium 4.8 5.2 H 5.8 H (3.5-5.1) mEq/L Chloride 105 106 106 (98-107) mEq/L Carbon Dioxide 26 23 21 L (23-29) mEq/L BUN 31 H 36 H 37 H (8-23) mg/dL Creatinine 3.13 H 3.87 H 4.13 H (0.70-1.30) mg/dL Glucose 123 H 120 H 153 H (70-105) mg/dL Calcium 9.0 8.7 8.8 (8.6-10.3) mg/dL 03/07/18 Range/Units 07:53 Sodium 136 (136-145) mEq/L Potassium 5.3 H (3.5-5.1) mEq/L Chloride 106 (98-107) mEq/L Carbon Dioxide 22 L (23-29) mEq/L BUN 42 H (8-23) mg/dL Creatinine 4.05 H (0.70-1.30) mg/dL Glucose 156 H (70-105) mg/dL Calcium 8.5 L (8.6-10.3) mg/dL Adrenal panel 03/06/18 03/06/18 03/07/18 Range/Units 14:53 19:42 00:28 Sodium 136 136 134 L (136-145) mEq/L Potassium 4.8 5.2 H 5.8 H (3.5-5.1) mEq/L Chloride 105 106 106 (98-107) mEq/L Carbon Dioxide 26 23 21 L (23-29) mEq/L BUN 31 H 36 H 37 H (8-23) mg/dL Creatinine 3.13 H 3.87 H 4.13 H (0.70-1.30) mg/dL Glucose 123 H 120 H 153 H (70-105) mg/dL Calcium 9.0 8.7 8.8 (8.6-10.3) mg/dL 03/07/18 Range/Units 07:53 Sodium 136 (136-145) mEq/L Potassium 5.3 H (3.5-5.1) mEq/L Chloride 106 (98-107) mEq/L Carbon Dioxide 22 L (23-29) mEq/L BUN 42 H (8-23) mg/dL Creatinine 4.05 H (0.70-1.30) mg/dL Glucose 156 H (70-105) mg/dL Calcium 8.5 L (8.6-10.3) mg/dL Consult Discharge Plan - Plan Referrals: NONE,PCP [Primary Care Provider] -
[2018-03-07] MEDS: 0.9 % Sodium Chloride 1,000 ML IVC SCH (11:58)
[2018-03-07 14:36] LABS: Bilirubin,Urine Negative (Negative); Blood,Urine Large (Negative); Clarity,Urine Turbid (Clear); Color,Urine Yellow (Yellow); Glucose,Urine (UA) Normal (Normal); Ketones,Urine Negative (Negative); Leukocyte Esterase,Urine Large (Negative); Nitrite,Urine Negative (Negative); PH,Urine 5.5 pH Units (5.0-8.0); Protein,Urine 100 mg/dL (Neg-Trace); Urobilinogen,Urine Normal (Normal)
--- NOTE | 2018-03-07 14:37 | Nephrology Consult Note ---
Date of Encounter: 03/07/18 Time of Encounter: 14:30 Assessment and Plan (1) JAIRON (acute kidney injury) Current Visit: Yes Status: Acute SCr peaked at 4.13, GFR 14 with repeat at 4.05, GFR 14. Expect fast decline by tomorrow post ureteral stent exchange No acute indication for POLITICAL ANTHROPOLOGIST at this time Can give iv fluids and encourage po as well Avoid nephrooxins if possible will check uric acid and ck levels will check urine studies (2) CKD (chronic kidney disease) stage 4, GFR 15-29 ml/min Current Visit: Yes Status: Acute Baseline GFR in the 20s (3) Bladder cancer Current Visit: Yes Status: Acute Per urology Qualifiers: Bladder location: unspecified site Qualified Code(s): C67.9 - Malignant neoplasm of bladder, unspecified (4) Hyperkalemia Current Visit: Yes Status: Acute Peaked at 5.8 now improving at 5.3 Renal diet advised for now History of Present Illness - Reason for Consult Consult date: 03/07/18 Acute Kidney Injury, Chronic Kidney Disease Requesting physician: Solange Guthrie - History of Present Illness 87 y o male with PMH of bladder cancer s/p tumor resections in the past with last one 01/29/18 s/p LNX due to 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 CT abd/pelvis showed ureteral stent obxn. Scr noted elevated from baseline at 3.13, GFR 19 which was previously 2.41, GFR 26 as of 12/2017. Urology already consulted with urgent cystoscopy and ureteral exchange performed last night. Pt now voiding today with already 975cc UOP so far today. Past Med Surg Social Fam HX - Past Medical History Medical history: cancer, GERD, hyperlipidemia, hypertension, renal disease Additional medical history: Bladder CA. CAD. Anemia. Constipation. Tremors Psychiatric history: anxiety - Past Surgical History Additional surgical history: Left Kidney Removed. Right Kidney Stent(s). Coronary Angioplasty/Stent - Social History Smoking Status: Never smoker Smokeless Tobacco Status: No Alcohol use: none Drug use: none Medications and Allergies Aspirin [Lo-Dose Aspirin EC] 81 mg PO DAILY 07/22/17 [History] Atorvastatin Calcium [Lipitor] 40 mg PO HS 07/22/17 [History] Carvedilol [Coreg] 6.25 mg PO BIDWM 07/22/17 [History] Ferrous Sulfate 325 mg PO DAILY 07/22/17 [History] Ketoconazole 2% CRM [Nizoral Cream] 1 appl TP DAILY 07/22/17 [History] Lactulose 30 ml PO BID PRN 07/22/17 [History] Pantoprazole Sodium [Protonix] 40 mg PO DAILY 07/22/17 [History] Polyethylene Glycol 3350 [MiraLAX] 17 gm PO Q12H PRN 07/22/17 [History] Selenium Sulfide 1 appl TP DAILY PRN 07/22/17 [History] Sodium Bicarbonate 650 mg PO BID 07/22/17 [History] amLODIPine [Norvasc] 5 mg PO DAILY 07/22/17 [History] Melatonin [Melatin] 3 mg PO HS PRN 08/10/17 [History] Dextran 70/Hypromellose [Artificial Tears Eye Drops] 1 drop BOTH EYES BID 01/29/18 [History] Lidocaine Patch [Lidoderm 5% patch] 1 patch TP DAILY PRN 01/29/18 [History] Methyl Salicylate/Menthol [Muscle Rub Cream] 35 gm TP Q12H PRN 01/29/18 [History] Vit C/Vit E AC/Lut/Mineral 1 [Prosight with Lutein Capsule] 1 each PO BID 01/29/18 [History] Allergy/AdvReac Type Severity Reaction Status Date / Time No Known Allergies Allergy Verified 01/29/18 07:22 Review of Systems All Systems review (narrative): The rest of the systems are negative Constitutional: anorexia (denies) Gastrointestinal: nausea (admits) Genitourinary Male: flank pain (admits but resolving) Exam - Vital Signs Vital signs: Initial Vital Signs Temp Pulse Resp BP Pulse Ox 97.8 F 65 18 167/82 100 03/06/18 13:43 03/06/18 13:43 03/06/18 13:43 03/06/18 13:43 03/06/18 13:43 Vital Signs - Last 8 Hours Temp Pulse Resp BP Pulse Ox 03/07/18 14:20 98.2 F 64 14 135/67 96 03/07/18 10:05 98.3 F 65 16 122/62 94 Intake and Output 03/06/18 03/07/1818 23:59 07:59 15:59 Intake Total 0 / 0 120 / 120 Output Total 0 / 0 475 / 475 500 / 500 Balance 0 / 0 -475 / -475 -380 / -380 Intake: Oral 0 / 0 120 / 120 Output: Urine 0 / 0 475 / 475 500 / 500 Estimated Blood Loss 0 / 0 Other: Meal Lunch Percent of Meal Consumed 75% Weight 102.965 kg 103.3 kg Patient Weight 03/07/18 23:59 Weight 103.3 kg - General Appearance General appearance: chronically ill, frail EENT: ATNC, mucous membranes moist Neck: no JVD, supple Respiratory: clear Cardiology: no edema, normal S1, normal S2 Gastrointestinal: no tenderness, no guarding Integumentary: warm and dry Neurologic: no focal deficit Musculoskeletal: no deformities Psychiatric: mood/affect appropriate Results - Lab Results 03/07/18 07:53 03/07/18 07:53 Most recent lab results Calcium 8.5 mg/dL (8.6-10.3) L 03/07/18 07:53 Phosphorus 2.6 mg/dL (2.7-4.5) L 03/07/18 00:28 Magnesium 2.2 mg/dL (1.6-2.6) 03/07/18 00:28 Consult Discharge Plan - Plan Referrals: NONE,PCP [Primary Care Provider] -
[2018-03-07 14:39] LABS: Bacteria,Urine Many per hpf (None-Few); Squamous Epithelial Cell,Urine Many per lpf (None-Few); WBC,Urine TNTC per hpf (0-3)
[2018-03-07 15:20] LABS: Uric Acid 7.3 mg/dL (2.3-7.6)
[2018-03-07 15:29] LABS: Sodium, Urine 60.8 mEq/L
[2018-03-07] MEDS: cefTRIAXone 2,000 MG in Water for inj. (sterile) 20 ML 20 ML IVP SCH (21:30)
[2018-03-08] MEDS: 0.9 % Sodium Chloride 1,000 ML IVC SCH ×2 (00:49→14:26)
[2018-03-08] MEDS: *HR* Heparin 5,000 UNIT/ML VIAL SQ SCH ×3 (05:08→22:53)
[2018-03-08 06:35] LABS: Basophils % 0.1 %; Eosinophils % 0.1 %; Hematocrit 32.3 % (37.5-50.1); Hemoglobin 10.2 g/dL (12.9-16.9); Immature Granulocytes % 0.5 % (0-4); Lymphocytes # 1.3 K/mcL (0.6-4.6); Lymphocytes % 7.7 %; Mean Corpuscular HGB Conc 31.6 g/dL (31.6-35.5); Mean Corpuscular Hemoglobin 27.9 pg (28.0-33.3); Mean Corpuscular Volume 88.3 fL (83.0-100.0); Mean Platelet Volume 10.1 fL (9.4-12.4); Monocytes # 1.1 K/mcL (0.0-1.3); Monocytes % 6.7 %; Platelet Count 194 K/mcL (140-400); Red Blood Count 3.66 M/mcL (4.19-5.50); Red Cell Distribution Width 14.6 % (11.5-14.5); Segmented Neutrophils % 84.9 %
[2018-03-08 06:56] LABS: Calcium 8.5 mg/dL (8.6-10.3); Potassium 5.4 mEq/L (3.5-5.1)
[2018-03-08] MEDS: amLODIPine 5 MG TABLET PO SCH (08:38)
[2018-03-08] MEDS: VIT C PO SCH (08:39)
[2018-03-08] MEDS: LUT PO SCH (08:39)
[2018-03-08] MEDS: Artificial Tears SOLN 15 ML BOTTLE BOTH EYES SCH ×2 (08:39→20:28)
[2018-03-08] MEDS: VIT E AC PO SCH (08:39)
[2018-03-08] MEDS: LUTEIN PO SCH (08:39)
[2018-03-08] MEDS: MINERAL PO SCH (08:39)
--- NOTE | 2018-03-08 09:27 | Nephrology Progress Note ---
Date of Encounter: 03/08/18 Time of Encounter: 09:10 - Assessment and Plan (1) JAIRON (acute kidney injury) Current Visit: Yes Status: Acute Roughly stable, nonoliguric JAIRON on CKD stage IV. Etiology most likely post renal. Appreciate Urology. No indications for renal replacement therapy at this time (today), however I counseled the patient for greater than 50% of the encounter regarding following a low potassium diet. His current dietary order is for a low K+ diet (i.e., Renal Diet); however, the serum potassium has been slowly increasing. I will p rovide a dose of Kayexalate today to help lower the total body potassium. Continue to follow a renal protective/supportive strategy: Including strict I's and nose and daily weights. Avoidance of nephrotoxic agents, if able. We will continue to follow with you. Thank you. (2) CKD (chronic kidney disease) stage 4, GFR 15-29 ml/min Current Visit: Yes Status: Acute Baseline GFR in the 20s (3) Hyperkalemia Current Visit: Yes Status: Acute See above (4) Bladder cancer Current Visit: Yes Status: Acute As per Urology. Also of note, there is a large right renal cyst which has grown in size according to the CT. Appreciate Urology. Qualifiers: Bladder location: unspecified site Qualified Code(s): C67.9 - Malignant neoplasm of bladder, unspecified (5) Renal cyst, right Current Visit: Yes Status: Acute 4.4 x 4.3 cm multiloculated cystic structure in the inferior right kidney, increased since previous exam which may be related to the obstruction. (6) Hydronephrosis Current Visit: Yes Status: Acute As per Urology. Qualifiers: Hydronephrosis type: unspecified Qualified Code(s): N13.30 - Unspecified hydronephrosis Subjective Principal diagnosis: JAIRON on CKD stage IV Interval history: Patient was seen and examined earlier today, and he did not affirm having any nausea, vomiting, or diminished appetite. He said he ate some/most of his breakfast. He did not affirm any abdominal pain either. He denied chest pain and shortness of breath. He said his tremors have been chronic for many decades. Objective - Vital Signs Vital signs: Vital Signs Temp Pulse Resp BP Pulse Ox 03/08/18 07:31 98.2 F 60 15 156/72 95 03/08/18 05:55 98.7 F 67 15 145/70 96 03/07/18 21:26 97.1 F L 69 13 138/64 95 03/07/18 17:01 64 144/64 03/07/18 14:20 98.2 F 64 14 135/67 96 03/07/18 10:05 98.3 F 65 16 122/62 94 Intake and Output 03/07/18 03/08/18 03/08/18 23:59 07:59 15:59 Intake Total 140 / 140 1000 / 1000 678 / 678 Output Total 1100 / 1100 1000 / 1000 Balance -960 / -960 0 / 0 678 / 678 Intake: IV Fluids 20 / 20 1000 / 1000 558 / 558 0.9 % Sodium Chloride 1,000 ML 1000 / 1000 558 / 558 @ 75 mls/hr IVC .[id number] [facility] Rx #:[id number] Rocephin 2,000 MG In Water for 20 / 20 inj. (sterile) 20 ML @ 600 mls/ hr IVP Q24H [facility] Rx#:[id number] Oral 120 / 120 0 / 0 120 / 120 Output: Urine 1100 / 1100 1000 / 1000 Other: Meal Dinner Breakfast Percent of Meal Consumed 100% 10% Weight 103.3 kg Patient Weight 03/08/18 23:59 Weight 103.3 kg - General Appearance General appearance: Present: well-developed, well-nourished, appears started age EENT: Present: ATNC, PERRL, mucous membranes moist Neck: Present: supple Respiratory: Present: clear Cardiology: Present: no edema, regular rate, regular rhythm, normal S1, normal S2 Gastrointestinal: Present: normoactive bowel sounds, no tenderness, no guarding, obese Integumentary: Present: no rash, warm and dry Neurologic: Present: alert and oriented x3 Additional Comments: Bilateral intention tremor of his hands and head Musculoskeletal: Present: no deformities, no erythema, no cyanosis Psychiatric: Present: mood/affect appropriate, cooperative - Lab 03/08/18 06:16 03/08/18 06:16 Most recent lab results Calcium 8.5 mg/dL (8.6-10.3) L 03/08/18 06:16 Phosphorus 2.6 mg/dL (2.7-4.5) L 03/07/18 00:28 Magnesium 2.2 mg/dL (1.6-2.6) 03/07/18 00:28 Urine Creatinine 94 mg/dL 03/07/18 10:46 Urine Sodium 60.8 mEq/L 03/07/18 10:46 - Imaging Additional Comments: CT abdomen: I reviewed the report of the CT, as follows: Ureteral stent extending from the mid right ureter into the bladder. Moderate hydroureteronephrosis proximal to the stent with layering high attenuation in renal calices. Urothelial thickening and prominent perinephric stranding. Findings concerning for infection. Layering high attenuation may represent blood or debris. 4.4 x 4.3 cm multiloculated cystic structure in the inferior right kidney, increased since previous exam which may be related to the obstruction. Bladder is not well distended but appears thickened and inflamed. Consult Discharge Plan - Plan Referrals: NONE,PCP [Primary Care Provider] -
[2018-03-08] MEDS: cefTRIAXone 2,000 MG in Water for inj. (sterile) 20 ML 20 ML IVP SCH (18:50)
--- NOTE | 2018-03-08 19:37 | Internal Med Progress Note ---
Hospitalist Progress Note - Encounter Date of Encounter: 03/08/18 Time of Encounter: 11:00 - Subjective Interval History: Patient with improving acute on chronic renal failure but still with hyperkalemia - Exam Vitals: Temp Pulse Resp BP Pulse Ox 98.1 F 92 18 127/68 97 03/08/18 15:07 03/08/18 15:07 03/08/18 15:07 03/08/18 15:07 03/08/18 15:07 Exam: Gen.: Nonacute distress, alert and oriented 3 ENT: Mucosal membranes moist Respiratory: Lungs are clear to auscultation bilaterally without any wheezing rhonchi or rales Cardiovascular: Normal S1 and S2 regular rate rhythm no murmurs rubs or gallops Abdomen: Soft, nontender and nondistended with positive bowel sounds Extremities: No lower extremity edema Skin: Normal color - Assessment and Plan (1) Acute renal failure (ARF) Current Visit: Yes Status: Acute Assessment and Plan: Suspect post obstructive Nephrology consulted with recommendations for protective/supportive strategy including strict I's and O's with avoidance of nephrotoxic agents. (2) Hyperkalemia Current Visit: Yes Status: Acute Assessment and Plan: Patient with continued elevated potassium of 5.4 this morning Nephrology following for recommendations for Kayexalate in addition to low potassium/renal diet. Will continue to monitor (3) Bladder cancer Current Visit: Yes Status: Acute Assessment and Plan: s/p transurethral resection of bladder tumor urology on board (4) Hypertension Current Visit: Yes Status: Acute Assessment and Plan: continue home medications if not CI (5) Obstructive uropathy Current Visit: Yes Status: Acute Assessment and Plan: has history of Right ureteral obstruction s/p stent placement and bladder cancer s/p transurethral resection of bladder tumor Patient status post cystoscopy and right double-J stent Urology following an appreciate any additional recommendations (6) DVT prophylaxis Current Visit: Yes Status: Acute Assessment and Plan: heparin sc - Time Spent with Patient Total time spent is greater than 50% in coordination of care (as documented) at patient's floor/unit and/or counseling patient: Internal Medicine: Result - Labs CBC & Chem 7: 03/08/18 06:16 03/08/18 06:16 Labs: Short CBC 03/08/18 Range/Units 06:16 WBC 16.4 H (4.3-11.1) K/mcL Hgb 10.2 L (12.9-16.9) g/dL Hct 32.3 L (37.5-50.1) % Plt Count 194 (140-400) K/mcL Neutrophils # 14.0 H (1.6-8.9) K/mcL BMP 03/08/18 06:16 Sodium 137 Potassium 5.4 H Chloride 109 H Carbon Dioxide 17 L BUN 52 H Creatinine 3.76 H Glucose 97 Calcium 8.5 L - ABG Interpretation ABG results: PT/INR, D-dimer PT 12.4 Seconds (9.4-12.1) H 03/06/18 17:05 Consult Discharge Plan - Plan Referrals: NONE,PCP [Primary Care Provider] - (1) Acute renal failure (ARF) Qualifiers: Acute renal failure type: unspecified Qualified Code(s): N17.9 - Acute kidney failure, unspecified (3) Bladder cancer Qualifiers: Bladder location: unspecified site Qualified Code(s): C67.9 - Malignant neoplasm of bladder, unspecified (4) Hypertension Qualifiers: Hypertension type: essential hypertension Qualified Code(s): I10 - Essential (primary) hypertension
[2018-03-08] MEDS: Melatonin 3 MG TABLET PO PRN (22:56)
[2018-03-09] MEDS: *HR* Heparin 5,000 UNIT/ML VIAL SQ SCH ×3 (05:28→22:08)
[2018-03-09 07:24] LABS: Basophils % 0.3 %; Hematocrit 32.5 % (37.5-50.1); Hemoglobin 10.2 g/dL (12.9-16.9); Immature Granulocytes % 0.4 % (0-4); Lymphocytes # 0.9 K/mcL (0.6-4.6); Lymphocytes % 13.4 %; Mean Corpuscular HGB Conc 31.4 g/dL (31.6-35.5); Mean Corpuscular Hemoglobin 27.2 pg (28.0-33.3); Mean Corpuscular Volume 86.7 fL (83.0-100.0); Mean Platelet Volume 10.1 fL (9.4-12.4); Monocytes # 0.8 K/mcL (0.0-1.3); Neutrophils # 5.1 K/mcL (1.6-8.9); Platelet Count 219 K/mcL (140-400); Red Blood Count 3.75 M/mcL (4.19-5.50); Red Cell Distribution Width 14.6 % (11.5-14.5); Segmented Neutrophils % 73.9 %
[2018-03-09] MEDS: amLODIPine 5 MG TABLET PO SCH (08:03)
[2018-03-09] MEDS: Artificial Tears SOLN 15 ML BOTTLE BOTH EYES SCH ×2 (08:04→22:07)
[2018-03-09 08:05] LABS: Calcium 8.3 mg/dL (8.6-10.3); Potassium 4.5 mEq/L (3.5-5.1)
--- NOTE | 2018-03-09 08:45 | Nephrology Progress Note ---
Date of Encounter: 03/09/18 Time of Encounter: 08:42 - Assessment and Plan (1) JAIRON (acute kidney injury) Current Visit: Yes Status: Acute Kidney function improving-Scr 3.02, GFR 20 Robust UOP of 2825ml yesterday and 1100ml already today Continue strict I/Os Avoid nephrotoxins if possible (2) Bladder cancer Current Visit: Yes Status: Acute per Urology team Qualifiers: Bladder location: unspecified site Qualified Code(s): C67.9 - Malignant neoplasm of bladder, unspecified (3) Hydronephrosis Current Visit: Yes Status: Acute per Urology team Qualifiers: Hydronephrosis type: unspecified Qualified Code(s): N13.30 - Unspecified hydronephrosis (4) Hyperkalemia Current Visit: Yes Status: Resolved K+ 4.5 (5) CKD (chronic kidney disease) stage 4, GFR 15-29 ml/min Current Visit: Yes Status: Acute Baseline GFR in the 20s Subjective Principal diagnosis: JAIRON on CKD stage IV Interval history: Patient seen and examined, sitting up in chair at bedside eating breakfast. Objective - Vital Signs Vital signs: Vital Signs Temp Pulse Resp BP Pulse Ox 03/09/18 07:19 98.2 F 82 15 120/77 97 03/09/18 03:48 99.2 F 72 14 148/66 92 03/08/18 20:17 98.9 F 77 13 154/70 93 03/08/18 15:07 98.1 F 92 18 127/68 97 03/08/18 11:15 98.6 F 67 15 144/62 94 Intake and Output 03/08/18 03/09/18 03/09/18 23:59 07:59 15:59 Intake Total 50 / 50 876 / 876 Output Total 975 / 975 975 / 975 125 / 125 Balance -925 / -925 -975 / -975 751 / 751 Intake: IV Fluids 876 / 876 0.9 % Sodium Chloride 1,000 ML 876 / 876 @ 50 mls/hr IVC .Q20H [facility] Rx#: [id number] Rocephin 2,000 MG In Water for inj. (sterile) 20 ML @ 600 mls/ hr IVP Q24H [facility] Rx#:[id number] Oral 30 / 30 Output: Urine 975 / 975 975 / 975 125 / 125 Other: Meal Dinner Percent of Meal Consumed 75% Weight 103.2 kg Patient Weight 03/09/18 23:59 Weight 103.2 kg - General Appearance General appearance: Present: well-developed, well-nourished EENT: Present: ATNC, mucous membranes moist, hearing intact, vision intact Neck: Present: supple Respiratory: Present: clear Cardiology: Present: no edema, normal S1, normal S2 Gastrointestinal: Present: no tenderness, no guarding Integumentary: Present: warm and dry Neurologic: Present: alert and oriented x3 Psychiatric: Present: mood/affect appropriate, cooperative - Lab 03/09/18 07:06 03/09/18 07:06 Most recent lab results Calcium 8.3 mg/dL (8.6-10.3) L 03/09/18 07:06 Phosphorus 2.6 mg/dL (2.7-4.5) L 03/07/18 00:28 Magnesium 2.2 mg/dL (1.6-2.6) 03/07/18 00:28 Urine Creatinine 94 mg/dL 03/07/18 10:46 Urine Sodium 60.8 mEq/L 03/07/18 10:46 Consult Discharge Plan - Plan Referrals: NONE,PCP [Primary Care Provider] -
[2018-03-09] MEDS: 0.9 % Sodium Chloride 1,000 ML IVC SCH (10:14)
--- NOTE | 2018-03-09 17:18 | Internal Med Progress Note ---
Hospitalist Progress Note - Encounter Date of Encounter: 03/09/18 Time of Encounter: 17:16 - Subjective Interval History: I've seen and evaluated the patient at bedside. He reports feeling well, but reports that he has not had a bowel movement since Thursday. Denies abdominal pain, nausea or vomiting. denies chest pain, fever or chills. - Exam Vitals: Temp Pulse Resp BP Pulse Ox 98.7 F 71 15 152/66 93 03/09/18 14:33 03/09/18 14:33 03/09/18 14:33 03/09/18 14:33 03/09/18 14:33 Exam: Vitals: reviewed. General: Alert and oriented x4. In mild distress due to constipation. Skin: Normal color, no rash, no lesions. HEENT: EOM, pupils equal, round and reactive. Cardiovascular: RRR, Normal S1 & S2, no rubs, murmurs or gallops. No JVD. Pulse regular. Lungs: CTA bilaterally, no wheezes or crackles. Abdomen: Soft, non-tender, no rigidity. NABS in all 4 quadrants Extremities: No deformity, no edema or tenderness, no joint swelling or clubbing. Neurological: Normal cognition and motor skills. Intention tremors Rest of the physical exam is non contributory - Assessment and Plan (1) Acute renal failure (ARF) Current Visit: Yes Status: Acute Assessment and Plan: possible due to obstructive uropathy s/p stent placement Plan: avoid nephrotoxic medications on gentle IV hydration with 0.45%NS@75mls/hr will continue to follow nephrology recommendations (2) Obstructive uropathy Current Visit: Yes Status: Acute Assessment and Plan: S/P post stent changed in 03/06/18 CT/CT abd pelvis wo no iv no oral IMPRESSION: Ureteral stent extending from the mid right ureter into the bladder. Moderate hydroureteronephrosis proximal to the stent with layering high attenuation in renal calices. Urothelial thickening and prominent perinephric stranding. Findings concerning for infection. Layering high attenuation may represent blood or debris. 4.4 x 4.3 cm multiloculated cystic structure in the inferior right kidney, increased since previous exam which may be related to the obstruction. Bladder is not well distended but appears thickened and inflamed. Plan urology recommended outpatient follow up empirically bein covered to UTI with ceftriaxone 2gm/IV Q24HR will continue antibiotics to complete 5-7 days of antibiotics coverage. (3) Hypertension Current Visit: Yes Status: Chronic Assessment and Plan: BP sub-optimally controlled. Increase carvedilol to 12.5mg/PO BID On amlodipine 5mg/PO daily Will continue to monitor and adjust medications accordingly. (4) Hyperkalemia Current Visit: Yes Status: Resolved (5) Bladder cancer Current Visit: Yes Status: Chronic Assessment and Plan: Outpatient follow up. DVT Prophylaxis: Heparin subcutaneous - Summary of Assessment and Plan Summary of Assessment and Plan: Patient to remain in the hospital due to JAIRON/CKD possible due to obstructive uropathy s/p stent placement. - Time Spent with Patient Total time spent is greater than 50% in coordination of care (as documented) at patient's floor/unit and/or counseling patient: Greater than 35 minutes (40) Plan of Care Discussed with: patient (and the nurse) Internal Medicine: Result - Labs CBC & Chem 7: 03/09/18 07:06 03/09/18 07:06 Labs: Short CBC 03/09/18 Range/Units 07:06 WBC 6.9 D (4.3-11.1) K/mcL Hgb 10.2 L (12.9-16.9) g/dL Hct 32.5 L (37.5-50.1) % Plt Count 219 (140-400) K/mcL Neutrophils # 5.1 (1.6-8.9) K/mcL BMP 03/09/18 07:06 Sodium 141 Potassium 4.5 Chloride 109 H Carbon Dioxide 22 L BUN 41 H Creatinine 3.02 H Glucose 98 Calcium 8.3 L - ABG Interpretation ABG results: PT/INR, D-dimer PT 12.4 Seconds (9.4-12.1) H 03/06/18 17:05 Consult Discharge Plan - Plan Referrals: NONE,PCP [Primary Care Provider] - (1) Acute renal failure (ARF) Qualifiers: Acute renal failure type: unspecified Qualified Code(s): N17.9 - Acute kidney failure, unspecified (3) Hypertension Qualifiers: Hypertension type: essential hypertension Qualified Code(s): I10 - Essential (primary) hypertension (5) Bladder cancer Qualifiers: Bladder location: unspecified site Qualified Code(s): C67.9 - Malignant neoplasm of bladder, unspecified
[2018-03-09] MEDS: cefTRIAXone 2,000 MG in Water for inj. (sterile) 20 ML 20 ML IVP SCH (19:09)
--- NOTE | 2018-03-09 19:10 | Electrocardiograph Report ---
[address] [place] [address] Test Date: 2018-03-06 Pat Name: Austin Finn Department: [id number] Room: 3A Gender: M Plant Tech: : [id number] Requested By: Brittani Almeida Order Number: [id number] Reading MD: Leida Romero Measurements Intervals [place] Rate: 67 P: TN: QRS: 57 QRSD: 94 T: 65 QT: 392 QTc: 414 Interpretive Statements Normal sinus rhythm Electronically Signed On 03-09-2018 19:09:25 EST by Leida Romero
[2018-03-09] MEDS: Melatonin 3 MG TABLET PO PRN (22:11)
[2018-03-10] MEDS: *HR* Heparin 5,000 UNIT/ML VIAL SQ SCH (05:34)
[2018-03-10 06:08] LABS: Calcium 8.4 mg/dL (8.6-10.3); Magnesium 1.8 mg/dL (1.6-2.6); Phosphorous 2.8 mg/dL (2.7-4.5); Potassium 4.2 mEq/L (3.5-5.1)
--- NOTE | 2018-03-10 06:39 | Event Note ---
Date of Encounter: 03/10/18 Time of Encounter: 06:38 Nephrology Chart Review and Update This pt has stable if not better than baseline levels of SCr and eGFR: no new recommendations. So, I will sign-off at this time. 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 Thank you for having consulted the [facility] group. Please feel free to call or page me with any questions.
[2018-03-10] MEDS: amLODIPine 5 MG TABLET PO SCH (08:03)
[2018-03-10] MEDS: Artificial Tears SOLN 15 ML BOTTLE BOTH EYES SCH (08:04)
--- NOTE | 2018-03-10 09:44 | Discharge Summary ---
- NOTES TO OUTPATIENT PROVIDER Notes to Outpatient Provider: Follow-up with nephrology within a week of hospital discharge. F/U for Q6 month stent changes as scheduled with Dr. Orozco. Orders not resulted at time of discharge: Pending orders 03/06/18 22:07 XR KUB [XR] Routine 03/07/18 07:34 Culture,Blood [BC] Stat Date of Encounter: 03/10/18 Time of Encounter: 09:42 - Discharge Diagnosis (1) Acute renal failure (ARF) Priority: Primary Status: Resolved Qualifiers: Acute renal failure type: unspecified Qualified Code(s): N17.9 - Acute kidney failure, unspecified (2) Obstructive uropathy Priority: Secondary Status: Acute Assessment and Plan: s/p stent change on 03/06/18 (3) Hypertension Priority: Secondary Status: Chronic Qualifiers: Hypertension type: essential hypertension Qualified Code(s): I10 - Essential (primary) hypertension (4) Hyperkalemia Priority: Secondary Status: Resolved (5) Bladder cancer Priority: Secondary Status: Chronic Qualifiers: Bladder location: unspecified site Qualified Code(s): C67.9 - Malignant neoplasm of bladder, unspecified Hospital course: Mr. 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 as per patient his symptoms started about noon on admission afternoon and have progressively worsened. CT abd/Pelvis done: IMPRESSION: Ureteral stent extending from the mid right ureter into the bladder. Moderate hydroureteronephrosis proximal to the stent with layering high attenuation in renal calices. Urothelial thickening and prominent perinephric stranding. F indings concerning for infection. Patient admitted due to JAIRON/CKD due to Obstructive uropathy. Urology consulted, patient underwent stent change on 03/06/18. Urology recommended to follow Q6 month for stent changes as outpatient. Nephrology consulted. Creat is back to baseline, recommended to follow up with the director of pulmonary unit team within 1-2 weeks of hospital discharge. On presentation WBC count found to be 13.0-20.0. Patient treated empirically with Ceftriaxone. Patient acute symptoms resolved. Hemodynamically stable to be discharged. - Time Spent with Patient Total time spent providing and/or coordinating discharge services: Greater than 30 minutes - Discharge Medications Prescriptions: Amoxicillin/Clavulanate [Augmentin] 875 mg PO BIDWM 5 Days #10 tablet Home Medications: Aspirin [Lo-Dose Aspirin EC] 81 mg PO DAILY 07/22/17 [History] Atorvastatin Calcium [Lipitor] 40 mg PO HS 07/22/17 [History] Carvedilol [Coreg] 6.25 mg PO BIDWM 07/22/17 [History] Ferrous Sulfate 325 mg PO DAILY 07/22/17 [History] Ketoconazole 2% CRM [Nizoral Cream] 1 appl TP DAILY 07/22/17 [History] Lactulose 30 ml PO BID PRN 07/22/17 [History] Pantoprazole Sodium [Protonix] 40 mg PO DAILY 07/22/17 [History] Polyethylene Glycol 3350 [MiraLAX] 17 gm PO Q12H PRN 07/22/17 [History] Selenium Sulfide 1 appl TP DAILY PRN 07/22/17 [History] Sodium Bicarbonate 650 mg PO BID 07/22/17 [History] amLODIPine [Norvasc] 5 mg PO DAILY 07/22/17 [History] Melatonin [Melatin] 3 mg PO HS PRN 08/10/17 [History] Dextran 70/Hypromellose [Artificial Tears Eye Drops] 1 drop BOTH EYES BID 01/29/18 [History] Lidocaine Patch [Lidoderm 5% patch] 1 patch TP DAILY PRN 01/29/18 [History] Methyl Salicylate/Menthol [Muscle Rub Cream] 35 gm TP Q12H PRN 01/29/18 [History] Vit C/Vit E AC/Lut/Mineral 1 [Prosight with Lutein Capsule] 1 each PO BID 01/29/18 [History] Amoxicillin/Clavulanate [Augmentin] 875 mg PO BIDWM 5 Days #10 tablet 03/10/18 [Rx] Allergies/Adverse Reactions: Allergy/AdvReac Type Severity Reaction Status Date / Time No Known Allergies Allergy Verified 01/29/18 07:22 Date of admission: 03/08/18 19:31 Primary care physician: PCP NONE Consults: 03/06/18 14:42 Consult to Urology [CONS] Stat Consulting Provider: [facility] [place] Reason for Consult: left stent failure Dr Maza Call Completed: Yes 03/06/18 19:38 Consult to Interventional Radiology [CONS] Routine Consulting Provider: Radiology Interventional [place] Reason for Consult: obstructive uropathy Call Completed: Yes Consult to Nephrology [CONS] Routine Consulting Provider: [facility]/ORIADRIANA/GOVIND/LISA Reason for Consult: JAIRON Call Completed: Yes - Constitutional Vitals: Temp Pulse Resp BP Pulse Ox 98 F 58 16 153/69 96 03/10/18 07:31 03/10/18 07:31 03/10/18 07:31 03/10/18 07:31 03/10/18 07:31 Exam: Vitals: reviewed. General: Alert and oriented x4. No acute distress. Skin: Normal color, no rash, no lesions. HEENT: EOM, pupils equal, round and reactive. Cardiovascular: RRR, Normal S1 & S2, no rubs, murmurs or gallops. No JVD. Pulse regular. Lungs: CTA bilaterally, no wheezes or crackles. Abdomen: Soft, non-tender, no rigidity. NABS in all 4 quadrants Extremities: No deformity, no edema or tenderness, no joint swelling or clubbing. Neurological: Normal cognition and motor skills. Intention tremors. CN II-XII intact. Rest of the physical exam is non contributory - Patient Status Disposition: Transfer LTC Condition: Good Functional capacity at discharge: independent ambulation Overall status at discharge: patient is back to baseline - Discharge Instructions Follow Up With: NONE,PCP [Primary Care Provider] - - Diet and Activity Activity: resume usual activities as tolerated Diet: advance to your usual diet, low salt diet
--- NOTE | 2018-03-10 11:08 | Physician Discharge Referral ---
ExtendedCare Referral Info Transfer To: [facility] - Diagnosis (1) Acute renal failure (ARF) Priority: Primary Status: Resolved (2) Obstructive uropathy Priority: Secondary Status: Acute (3) Hypertension Priority: Secondary Status: Chronic (4) Hyperkalemia Priority: Secondary Status: Resolved (5) Bladder cancer Priority: Secondary Status: Chronic Prognosis: Good Aware of Diagnosis: Patient Aware of Prognosis: Patient - Transfer Medications Prescriptions: Amoxicillin/Clavulanate [Augmentin] 875 mg PO BIDWM 5 Days #10 tablet Home Medications: Aspirin [Lo-Dose Aspirin EC] 81 mg PO DAILY 07/22/17 [History] Atorvastatin Calcium [Lipitor] 40 mg PO HS 07/22/17 [History] Carvedilol [Coreg] 6.25 mg PO BIDWM 07/22/17 [History] Ferrous Sulfate 325 mg PO DAILY 07/22/17 [History] Ketoconazole 2% CRM [Nizoral Cream] 1 appl TP DAILY 07/22/17 [History] Lactulose 30 ml PO BID PRN 07/22/17 [History] Pantoprazole Sodium [Protonix] 40 mg PO DAILY 07/22/17 [History] Polyethylene Glycol 3350 [MiraLAX] 17 gm PO Q12H PRN 07/22/17 [History] Selenium Sulfide 1 appl TP DAILY PRN 07/22/17 [History] Sodium Bicarbonate 650 mg PO BID 07/22/17 [History] amLODIPine [Norvasc] 5 mg PO DAILY 07/22/17 [History] Melatonin [Melatin] 3 mg PO HS PRN 08/10/17 [History] Dextran 70/Hypromellose [Artificial Tears Eye Drops] 1 drop BOTH EYES BID 01/29/18 [History] Lidocaine Patch [Lidoderm 5% patch] 1 patch TP DAILY PRN 01/29/18 [History] Methyl Salicylate/Menthol [Muscle Rub Cream] 35 gm TP Q12H PRN 01/29/18 [History] Vit C/Vit E AC/Lut/Mineral 1 [Prosight with Lutein Capsule] 1 each PO BID 01/29/18 [History] Amoxicillin/Clavulanate [Augmentin] 875 mg PO BIDWM 5 Days #10 tablet 03/10/18 [Rx] Allergies/Adverse Reactions: Allergy/AdvReac Type Severity Reaction Status Date / Time No Known Allergies Allergy Verified 01/29/18 07:22 - Respiratory Orders None Smoking Cessation: Smoking cessation has been advised. For more information, call the [place] Tobacco Quit Line at 1-608-SHOP-NOW. - Advance Directives Code Status: Full Code - Mobility Orders Ambulate - Rehabiliation Orders Rehab Potential: Fair Rehab Orders: Evaluation for Physical Therapy, Evaluation for Occupational Therapy - Diet Orders Regular CERTIFICATION: I certify that the transfer of the above named patient to an Extended Care Facility is necessary for the continuing treatment of the diagnosis listed. The above information is true and accurate reflection of patient's current condition. Confidential - Redisclosure prohibited without a patient's written consent.
[2018-03-10 11:11] VITALS: BP 156/77
== END 2018-03-10 14:08 | DRG 655 ==
LOC: 3ANU 13:38 → EMEROOARM 13:38 → SUATTDRO 15:36 → 3ANU 16:19 → SUATTDRO 03-08 19:31
PROVIDERS: ADMIT Internal Medicine; ATTEND Internal Medicine

== ENCOUNTER 2018-10-19 13:50 | Inpatient (IN) ==
--- NOTE | 2018-10-19 14:02 | Emergency Department Note ---
Disposition Clinical Impression: Rectal bleed, Pyelonephritis Disposition: Admitted As Inpatient Condition: Good Forms: ED Satisfaction Letter Time of Disposition: 16:11 General Adult HPI - General Stated complaint: rectal bleed Time Seen by Provider: 10/19/18 13:58 Source: patient, EMS Mode of arrival: EMS Limitations: no limitations Nursing Notes Reviewed: Yes Vital Signs Reviewed: Yes - History of Present Illness HPI Narrative: Male patient presenting tumor started complaining of a three-day history of rectal bleeding. Had 2 episodes this morning. Describes it as a large amount of bright red blood. Has happened to him previously approximately 3 years ago. Had a colonoscopy at that time with no source found of his rectal bleeding. This self resolved. He denies any vomiting but does report some mild nausea. He denies any abdominal pain. Does report a generalized weakness. Patient does have a history of bladder cancer and only one kidney that he has stents placed. He reports that he recently had a urologic stent placed. He reports that he has these placed every 6 months. He does report a burning on urination but states he is being treated for UTI. Is supposed to stop the antibiotic tonight. He denies any fevers or chills. Denies any chest pain. He denies any overt abdominal pain. Does report he has some hemorrhoids. - Related Data Home Medications Medication Instructions Recorded Confirmed Aspirin [Lo-Dose Aspirin EC] 81 mg PO DAILY 07/22/17 10/19/18 Carvedilol [Coreg] 6.25 mg PO BIDWM 07/22/17 10/19/18 Ferrous Sulfate 325 mg PO DAILY 07/22/17 10/19/18 Ketoconazole 2% CRM [Nizoral Cream] 1 appl TP DAILY 07/22/17 10/19/18 Pantoprazole Sodium [Protonix] 40 mg PO DAILY 07/22/17 10/19/18 Polyethylene Glycol 3350 [MiraLAX] 17 gm PO Q12H PRN 07/22/17 10/19/18 Selenium Sulfide 1 appl TP DAILY PRN 07/22/17 10/19/18 Sodium Bicarbonate 650 mg PO BID 07/22/17 10/19/18 amLODIPine [Norvasc] 5 mg PO DAILY 07/22/17 10/19/18 Melatonin [Melatin] 3 mg PO HS PRN 08/10/17 10/19/18 Dextran 70/Hypromellose 1 drop BOTH EYES Q12H PRN 01/29/18 10/19/18 [Artificial Tears Eye Drops] Methyl Salicylate/Menthol [Muscle 35 gm TP Q12H PRN 01/29/18 10/19/18 Rub Cream] Vit C/Vit E AC/Lut/Mineral 1 1 each PO BID 01/29/18 10/19/18 [Prosight with Lutein Capsule] Atorvastatin [Lipitor] 40 mg PO HS 08/26/18 10/19/18 Cefuroxime Axetil [Cefuroxime] 250 mg PO BID 10/19/18 10/19/18 Hydrocortisone 1% CREAM [Cortaid] 28 gm TP DAILY PRN 10/19/18 10/19/18 Ipratropium/Albuterol Neb [Duoneb] 3 ml IH Q4HR 10/19/18 10/19/18 Nitrofurantoin Monohyd/M-Cryst 100 mg PO BID 10/19/18 10/19/18 [Macrobid 100 mg Capsule] Allergies Allergy/AdvReac Type Severity Reaction Status Date / Time tuberculin,PPD,multi-puncture Allergy Hives Verified 08/26/18 00:31 All systems ED: reviewed and negative except as stated. Review of Systems: As Per HPI Constitutional: Denies: fever, chills ENT ED: Denies: congestion Cardiovascular: Denies: chest pain, syncope Respiratory: Reports: dyspnea (At baseline. He reports this is no worse than his normal dyspnea. Reports he generally has it on exertion more than anythin g.). Denies: cough Gastrointestinal: Reports: nausea, hematochezia. Denies: abdominal pain, vomiting, diarrhea, hematemesis, melena Genitourinary: Reports: dysuria. Denies: urgency, frequency, hematuria Musculoskeletal: Denies: back pain Neurological: Reports: weakness Past Medical History - Past Medical History Attestation: Yes The following information was validated with the patient. Source: patient Medical history: Reports: cancer, coronary artery disease, GERD, hyperlipidemia, hypertension, renal disease Psychiatric history: Reports: anxiety - Social History Smoking Status: Former smoker Smokeless Tobacco Status: No Alcohol use: Reports: none Drug use: Reports: none Physical Exam - General Limitations: no limitations General appearance: alert, in no apparent distress - Head Head exam: atraumatic, normocephalic, normal inspection - Eye Eye exam: Present: normal appearance, PERRL, EOMI - ENT ENT exam: normal exam, normal oropharynx, mucous membranes moist - Neck Neck exam: Present: normal inspection, full ROM, trachea midline - Chest Chest inspection: Present: normal inspection, symmetric chest wall rise - Respiratory Respiratory exam: Present: normal lung sounds bilaterally. Absent: respiratory distress, accessory muscle use - Cardiovascular Cardiovascular exam: Present: regular rate, normal rhythm, normal heart sounds - Abdominal Exam Abdominal exam: Present: soft, Non-Tender. Absent: tenderness, distention, g uarding, rebound, rigidity - Extremities Exam Extremities exam: Present: normal inspection, full ROM, normal capillary refill. Absent: tenderness, pedal edema - Back Exam Back exam: Present: normal inspection, full ROM. Absent: tenderness - Neurological Exam Neurological exam: Present: alert, oriented X3 - Psychiatric Psychiatric exam: Present: normal affect, normal mood - Skin Skin exam: Present: warm, dry, intact, normal color Course Course Narrative: Patient appears well resting in bed. Does not appear to be in acute distress. Abdomen is soft nontender nondistended. Patient states that he does need to go to the bathroom at this time. He will provide a stool sample. We will send this for Hemoccult analysis. Patient does not appear to be pallor in color. He has never had to have a blood transfusion for rectal bleeding before. We will get a basic lab workup on patient and a CT of patient's abdomen secondary to his recent stent placed. Patient had a ureteral stent placed August 26. He had some purulent material removed during that time. It was sent for culture. It was resistant to several different antibiotics. It was sensitive to Zosyn however. We will treat patient as a polynephritis at this time and continue his evaluation for rectal bleeding. We will admit patient to the hospital. Vital Signs Temperature 97.4 F L 10/19/18 13:56 Pulse Rate 63 10/19/18 13:56 Respiratory Rate 18 10/19/18 13:56 Blood Pressure 160/75 10/19/18 13:56 O2 Sat by Pulse Oximetry 98 10/19/18 13:56 Temperature 97.4 F L 10/19/18 13:56 Pulse Rate 63 10/19/18 13:56 Respiratory Rate 18 10/19/18 13:56 Blood Pressure 160/75 10/19/18 13:56 O2 Sat by Pulse Oximetry 98 10/19/18 13:56 Oxygen Delivery Oxygen Delivery Room Air Medical Decision Making - Medical Records Medical records reviewed: Yes I reviewed the patient's medical records. - Lab Data Lab results reviewed: Yes I reviewed the patient's lab results. Result diagrams: 10/19/18 14:18 10/19/18 14:18 Lab Results 10/19/18 10/19/18 10/19/18 Range/Units 14:15 14:18 14:18 WBC 8.0 (4.3-11.1) K/mcL RBC 3.68 L (4.19-5.50) M/mcL Hgb 10.7 L (12.9-16.9) g/dL Hct 33.6 L (37.5-50.1) % MCV 91.3 (83.0-100.0) fL MCH 29.1 (28.0-33.3) pg MCHC 31.8 (31.6-35.5) g/dL RDW 15.0 H (11.5-14.5) % Plt Count 321 (140-400) K/mcL MPV 9.5 (9.4-12.4) fL Immature Gran % 0.4 (0-4) % Seg Neutrophils % 62.8 % Lymphocytes % 27.5 % Monocytes % 6.8 % Eosinophils % 2.0 % Basophils % 0.5 % Neutrophils # 5.0 (1.6-8.9) K/mcL Lymphocytes # 2.2 (0.6-4.6) K/mcL Monocytes # 0.6 (0.0-1.3) K/mcL Eosinophils # 0.2 (0.0-0.6) K/mcL Basophils # 0.0 (0.0-0.2) K/mcL Sodium 138 (136-145) mEq/L Potassium 4.9 (3.5-5.1) mEq/L Chloride 108 H (98-107) mEq/L Carbon Dioxide 23 (23-29) mEq/L BUN 32 H (8-23) mg/dL Creatinine 2.54 H (0.70-1.30) mg/dL Est GFR ( Amer) 29 L (> 60) Est GFR (Non-Af Amer) 24 L (> 60) BUN/Creatinine Ratio 13 (6-26) Glucose 96 (70-105) mg/dL Calculated Osmolality 293 (280-300) Calcium 9.1 (8.6-10.3) mg/dL Total Bilirubin 0.4 (0.3-1.0) mg/dL AST 27 (13-39) Units/L ALT 30 (7-52) Units/L Alkaline Phosphatase 102 (34-104) Units/L Serum Total Protein 7.1 (6.4-8.9) g/dL Albumin 3.9 (3.5-5.7) g/dL Globulin 3.2 (2.4-3.5) g/dL Albumin/Globulin Ratio 1.2 (1.1-2.2) Urine Color Yellow (Yellow) Urine Clarity Turbid A (Clear) Urine pH 7.0 (5.0-8.0) pH Units Ur Specific Jelm 1.011 (1.010-1.025) Urine Protein 100 H (Neg-Trace) mg/dL Urine Glucose (UA) Normal (Normal) mg/dL Urine Ketones Negative (Negative) mg/dL Urine Blood Moderate H (Negative) Urine Nitrite Positive A (Negative) Urine Bilirubin Negative (Negative) Urine Urobilinogen Normal (Normal) mg/dL Ur Leukocyte Esterase Large H (Negative) Urine Microscopic RBC 5-15 H (0-3) per hpf Urine Microscopic WBC TNTC H (0-3) per hpf Ur Squamous Epith Cells Many H (None-Few) per lpf Ur Transition Epith Cell Few (None-Few) per hpf Ur Renal Epithelial Cell Moderate H (None-Few) per hpf Urine Bacteria Few (None-Few) per hpf Hyaline Casts None Seen (None-Few) per lpf Ur Culture Indicated? YES A (NO) Stool Occult Bld Scrn (Negative) Blood Type Antibody Screen 10/19/18 10/19/18 Range/Units 14:18 15:30 WBC (4.3-11.1) K/mcL RBC (4.19-5.50) M/mcL Hgb (12.9-16.9) g/dL Hct (37.5-50.1) % MCV (83.0-100.0) fL MCH (28.0-33.3) pg MCHC (31.6-35.5) g/dL RDW (11.5-14.5) % Plt Count (140-400) K/mcL MPV (9.4-12.4) fL Immature Gran % (0-4) % Seg Neutrophils % % Lymphocytes % % Monocytes % % Eosinophils % % Basophils % % Neutrophils # (1.6-8.9) K/mcL Lymphocytes # (0.6-4.6) K/mcL Monocytes # (0.0-1.3) K/mcL Eosinophils # (0.0-0.6) K/mcL Basophils # (0.0-0.2) K/mcL Sodium (136-145) mEq/L Potassium (3.5-5.1) mEq/L Chloride (98-107) mEq/L Carbon Dioxide (23-29) mEq/L BUN (8-23) mg/dL Creatinine (0.70-1.30) mg/dL Est GFR ( Amer) (> 60) Est GFR (Non-Af Amer) (> 60) BUN/Creatinine Ratio (6-26) Glucose (70-105) mg/dL Calculated Osmolality (280-300) Calcium (8.6-10.3) mg/dL Total Bilirubin (0.3-1.0) mg/dL AST (13-39) Units/L ALT (7-52) Units/L Alkaline Phosphatase (34-104) Units/L Serum Total Protein (6.4-8.9) g/dL Albumin (3.5-5.7) g/dL Globulin (2.4-3.5) g/dL Albumin/Globulin Ratio (1.1-2.2) Urine Color (Yellow) Urine Clarity (Clear) Urine pH (5.0-8.0) pH Units Ur Specific Jelm (1.010-1.025) Urine Protein (Neg-Trace) mg/dL Urine Glucose (UA) (Normal) mg/dL Urine Ketones (Negative) mg/dL Urine Blood (Negative) Urine Nitrite (Negative) Urine Bilirubin (Negative) Urine Urobilinogen (Normal) mg/dL Ur Leukocyte Esterase (Negative) Urine Microscopic RBC (0-3) per hpf Urine Microscopic WBC (0-3) per hpf Ur Squamous Epith Cells (None-Few) per lpf Ur Transition Epith Cell (None-Few) per hpf Ur Renal Epithelial Cell (None-Few) per hpf Urine Bacteria (None-Few) per hpf Hyaline Casts (None-Few) per lpf Ur Culture Indicated? (NO) Stool Occult Bld Scrn Positive A (Negative) Blood Type A POSITIVE Antibody Screen NEGATIVE - Radiology Data Radiology results reviewed: Yes I reviewed the patient's radiology results. Chest X-Ray 10/19/18 13:58 IMPRESSION: No acute pulmonary abnormality. D/ / Jean-Paul Matthew MD / Jean-Paul Matthew MD Interpreting Provider: Jean-Paul Matthew MD - EKG Data EKG #1 EKG attestation: Yes I reviewed and interpreted this EKG. EKG results narrative: Normal sinus rhythm at a rate of 57. TN interval is 170. QRS duration is Y7. QTC is 426. QTC is 4:15. No signs of acute ischemia. Good R-wave progression. No signs of WPW or Brugada.
[2018-10-19] MEDS ORDERED: 0.9 % Sodium Chloride 500 ML IVC STA (14:07)
[2018-10-19 14:26] LABS: Bilirubin,Urine Negative (Negative); Blood,Urine Moderate (Negative); Clarity,Urine Turbid (Clear); Color,Urine Yellow (Yellow); Glucose,Urine (UA) Normal (Normal); Ketones,Urine Negative (Negative); Leukocyte Esterase,Urine Large (Negative); Nitrite,Urine Positive (Negative); Protein,Urine 100 mg/dL (Neg-Trace); Specific Gravity,Urine 1.011 (1.010-1.025); Urobilinogen,Urine Normal (Normal)
[2018-10-19 14:28] LABS: Bacteria,Urine Few per hpf (None-Few); Hyaline Casts,Urine None Seen per lpf (None-Few); Squamous Epithelial Cell,Urine Many per lpf (None-Few); WBC,Urine TNTC per hpf (0-3)
[2018-10-19 14:35] LABS: Basophils % 0.5 %; Eosinophils # 0.2 K/mcL (0.0-0.6); Hematocrit 33.6 % (37.5-50.1); Hemoglobin 10.7 g/dL (12.9-16.9); Immature Granulocytes % 0.4 % (0-4); Lymphocytes # 2.2 K/mcL (0.6-4.6); Lymphocytes % 27.5 %; Mean Corpuscular HGB Conc 31.8 g/dL (31.6-35.5); Mean Corpuscular Hemoglobin 29.1 pg (28.0-33.3); Mean Corpuscular Volume 91.3 fL (83.0-100.0); Mean Platelet Volume 9.5 fL (9.4-12.4); Monocytes # 0.6 K/mcL (0.0-1.3); Monocytes % 6.8 %; Platelet Count 321 K/mcL (140-400); Red Blood Count 3.68 M/mcL (4.19-5.50); Segmented Neutrophils % 62.8 %
[2018-10-19 14:38] LABS: Renal Epithelial Cells,Urine Moderate per hpf (None-Few)
[2018-10-19 14:39] LABS: Transitional Epi Cells,Urine Few per hpf (None-Few)
--- NOTE | 2018-10-19 14:43 | Emergency Department Note ---
Disposition Clinical Impression: Rectal bleed Disposition: Still a Patient Time of Disposition: 14:42 General Adult HPI - General Chief complaint: ED GI Bleed Stated complaint: rectal bleed Time Seen by Provider: 10/19/18 13:58 Source: patient, EMS Mode of arrival: EMS Limitations: no limitations Nursing Notes Reviewed: Yes Vital Signs Reviewed: Yes - History of Present Illness HPI Narrative: Attestation note: Patient was seen with the emergency medicine resident/nurse practitioner /physician phlebotomist lab assistant/transitional resident/medical student: Dr. Brittani Almeida I have personally performed a face to face evaluation on this patient. I have reviewed and agree with history and physical examination patient management and disposition. I was present for the significant portions of the performance and interpretation of procedures and EKGs. Briefly the salient points of the case are as follows: A 7-year-old male sent by EMS from [facility] for 2 episodes of rectal bleeding. Physical examination is benign afebrile stable vital signs not pallorous normal conjunctival color. Patient will get rectal examination with fecal occult blood testing screening labs. Disposition pending. Pain Scale: 0 - Related Data Home Medications Medication Instructions Recorded Confirmed Aspirin [Lo-Dose Aspirin EC] 81 mg PO DAILY 07/22/17 10/19/18 Carvedilol [Coreg] 6.25 mg PO BIDWM 07/22/17 10/19/18 Ferrous Sulfate 325 mg PO DAILY 07/22/17 10/19/18 Ketoconazole 2% CRM [Nizoral Cream] 1 appl TP DAILY 07/22/17 10/19/18 Pantoprazole Sodium [Protonix] 40 mg PO DAILY 07/22/17 10/19/18 Polyethylene Glycol 3350 [MiraLAX] 17 gm PO Q12H PRN 07/22/17 10/19/18 Selenium Sulfide 1 appl TP DAILY PRN 07/22/17 10/19/18 Sodium Bicarbonate 650 mg PO BID 07/22/17 10/19/18 amLODIPine [Norvasc] 5 mg PO DAILY 07/22/17 10/19/18 Melatonin [Melatin] 3 mg PO HS PRN 08/10/17 10/19/18 Dextran 70/Hypromellose 1 drop BOTH EYES Q12H PRN 01/29/18 10/19/18 [Artificial Tears Eye Drops] Methyl Salicylate/Menthol [Muscle 35 gm TP Q12H PRN 01/29/18 10/19/18 Rub Cream] Vit C/Vit E AC/Lut/Mineral 1 1 each PO BID 01/29/18 10/19/18 [Prosight with Lutein Capsule] Atorvastatin [Lipitor] 40 mg PO HS 08/26/18 10/19/18 Cefuroxime Axetil [Cefuroxime] 250 mg PO BID 10/19/18 10/19/18 Hydrocortisone 1% CREAM [Cortaid] 28 gm TP DAILY PRN 10/19/18 10/19/18 Ipratropium/Albuterol Neb [Duoneb] 3 ml IH Q4HR 10/19/18 10/19/18 Nitrofurantoin Monohyd/M-Cryst 100 mg PO BID 10/19/18 10/19/18 [Macrobid 100 mg Capsule] Allergies Allergy/AdvReac Type Severity Reaction Status Date / Time tuberculin,PPD,multi-puncture Allergy Hives Verified 08/26/18 00:31 Constitutional: Denies: fever, chills ENT ED: Denies: congestion Cardiovascular: Denies: chest pain, syncope Respiratory: Reports: dyspnea (At baseline. He reports this is no worse than his normal dyspnea. Reports he generally has it on exertion more than anything.). Denies: cough Gastrointestinal: Reports: nausea, hematochezia. Denies: abdominal pain, vomiting, diarrhea, hematemesis, melena Genitourinary: Reports: dysuria. Denies: urgency, frequency, hematuria Musculoskeletal: Denies: back pain Neurological: Reports: weakness Past Medical History - Past Medical History Medical history: Reports: cancer, coronary artery disease, GERD, hyperlipidemia, hypertension, renal disease Psychiatric history: Reports: anxiety - Social History Smoking Status: Former smoker Smokeless Tobacco Status: No Alcohol use: Reports: none Drug use: Reports: none Physical Exam - General Limitations: no limitations General appearance: alert, in no apparent distress Course Vital Signs Temperature 97.4 F L 10/19/18 13:56 Pulse Rate 63 10/19/18 13:56 Respiratory Rate 18 10/19/18 13:56 Blood Pressure 160/75 10/19/18 13:56 O2 Sat by Pulse Oximetry 98 10/19/18 13:56 Temperature 97.4 F L 10/19/18 13:56 Pulse Rate 63 10/19/18 13:56 Respiratory Rate 18 10/19/18 13:56 Blood Pressure 160/75 10/19/18 13:56 O2 Sat by Pulse Oximetry 98 10/19/18 13:56 Oxygen Delivery Oxygen Delivery Room Air Medical Decision Making - Lab Data Result diagrams: 10/19/18 14:18 Lab Results 10/19/18 10/19/18 Range/Units 14:15 14:18 WBC 8.0 (4.3-11.1) K/mcL RBC 3.68 L (4.19-5.50) M/mcL Hgb 10.7 L (12.9-16.9) g/dL Hct 33.6 L (37.5-50.1) % MCV 91.3 (83.0-100.0) fL MCH 29.1 (28.0-33.3) pg MCHC 31.8 (31.6-35.5) g/dL RDW 15.0 H (11.5-14.5) % Plt Count 321 (140-400) K/mcL MPV 9.5 (9.4-12.4) fL Immature Gran % 0.4 (0-4) % Seg Neutrophils % 62.8 % Lymphocytes % 27.5 % Monocytes % 6.8 % Eosinophils % 2.0 % Basophils % 0.5 % Neutrophils # 5.0 (1.6-8.9) K/mcL Lymphocytes # 2.2 (0.6-4.6) K/mcL Monocytes # 0.6 (0.0-1.3) K/mcL Eosinophils # 0.2 (0.0-0.6) K/mcL Basophils # 0.0 (0.0-0.2) K/mcL Urine Color Yellow (Yellow) Urine Clarity Turbid A (Clear) Urine pH 7.0 (5.0-8.0) pH Units Ur Specific [place] 1.011 (1.010-1.025) Urine Protein 100 H (Neg-Trace) mg/dL Urine Glucose (UA) Normal (Normal) mg/dL Urine Ketones Negative (Negative) mg/dL Urine Blood Moderate H (Negative) Urine Nitrite Positive A (Negative) Urine Bilirubin Negative (Negative) Urine Urobilinogen Normal (Normal) mg/dL Ur Leukocyte Esterase Large H (Negative) Urine Microscopic RBC 5-15 H (0-3) per hpf Urine Microscopic WBC TNTC H (0-3) per hpf Ur Squamous Epith Cells Many H (None-Few) per lpf Ur Transition Epith Cell Few (None-Few) per hpf Ur Renal Epithelial Cell Moderate H (None-Few) per hpf Urine Bacteria Few (None-Few) per hpf Hyaline Casts None Seen (None-Few) per lpf Ur Culture Indicated? YES A (NO)
[2018-10-19] MEDS ORDERED: cefTRIAXone 1,000 MG in Water for inj. (sterile) 10 ML IVP STA (14:44)
[2018-10-19] MEDS ORDERED: Piperacillin/Tazobactam 3.375 GM in 0.9 % Sodium Chloride Mini Bag 100 ML IVPB STA (14:46)
[2018-10-19 14:55] LABS: Albumin 3.9 g/dL (3.5-5.7); Albumin/Globulin Ratio 1.2 (1.1-2.2); Bilirubin,Total 0.4 mg/dL (0.3-1.0); Calcium 9.1 mg/dL (8.6-10.3); Globulin 3.2 g/dL (2.4-3.5); Potassium 4.9 mEq/L (3.5-5.1); Total Protein 7.1 g/dL (6.4-8.9)
[2018-10-19] MEDS ORDERED: Naloxone 0.4 MG/ML INJ IVP PRN (16:57)
[2018-10-19 17:27] LABS: Hematocrit 33.5 % (37.5-50.1); Hemoglobin 10.6 g/dL (12.9-16.9)
[2018-10-19 17:37] LABS: INR 1.1; Prothrombin Time 12.3 Seconds (9.4-12.1)
[2018-10-19 17:40] LABS: Activated Partial Thrombo Time 32.9 Seconds (26.0-36.0)
[2018-10-19] MEDS ORDERED: Piperacillin/Tazobactam 3.375 GM in 0.9 % Sodium Chloride Mini Bag 100 ML IVPB SCH (18:00)
--- NOTE | 2018-10-19 18:17 | Internal Med History&Physical ---
<Max Salinas - Last Filed: 10/19/18 18:36> Date of Encounter: 10/19/18 Time of Encounter: 17:00 Internal Medicine - H&P: HPI Chief complaint: BRBPR Admitted From: Long-term Nursing Facility History of present illness: Mr. Finn is a 87 year old male with a past medical history of bladder papillary urothelial cancer (2000), coronary artery disease, hypertension, CKD stage IV with a PSH of L nephrectomy (2014) that presents today for GI bleed. Patient has been complaining of bright red blood per rectum for the past 2 mo nths. He says it occurs intermittently but denies daily frequency. He denies any melena or hematochezia and says that he just notices the blood in his toilet. He says that today he had some nausea along with his rectal bleeding which then prompted the nurse to report him to the ER. Patient denies any vomiting. Also denies any diarrhea. Patient lives at a care home facility. He follows urology here at [place]. He recently had a urinal stent replacement back in 08/2018. Upon arrival to the ER patient was afebrile and had a normal heart rate. Blood pressure was 160/75. He did not display any leukocytosis. Hemoglobin level was at 10.7 with his baseline being around 9.5. His creatinine was at 2.54 with a baseline of 2.88. Urinalysis revealed moderate blood and a large leukocyte Estrace. Chest x-ray was normal. Stool occult was positive for blood. Prior cultures showed multiple infections with ESBL. Prior sensitivities showed resistance to multiple drugs. Patient was subsequently placed on Zosyn in the ER for which he is sensitive to. When seen on the floor, he currently denies any abdominal pain, nausea, or vomiting. Denies any chest pain or shortness of breath. Denies any lower extremity swelling. Denies any fever. He does admit to dysuria but denies any gross hematuria. Denies any recent weight loss. Past Med Surg Social Fam HX - Past Medical History Medical history: cancer, coronary artery disease, GERD, hyperlipidemia, hypertension, renal disease Additional medical history: Bladder CA. Anemia. Constipation. Tremors Psychiatric history: anxiety - Past Surgical History Additional surgical history: Left Kidney Removed. Right Kidney Stent(s). Coronary Angioplasty/Stent - Social History Smoking Status: Former smoker Smokeless Tobacco Status: No Alcohol use: none Drug use: none Internal Medicine - H&P: Meds Carvedilol [Coreg] 6.25 mg PO BIDWM 07/22/17 [History] Ketoconazole 2% CRM [Nizoral Cream] 1 appl TP DAILY PRN MDD FACE 07/22/17 [History] Pantoprazole Sodium [Protonix] 40 mg PO QAM 07/22/17 [History] Polyethylene Glycol 3350 [MiraLAX] 17 gm PO Q12H PRN 07/22/17 [History] Selenium Sulfide 1 appl TP DAILY PRN 07/22/17 [History] Sodium Bicarbonate 650 mg PO BID 07/22/17 [History] amLODIPine [Norvasc] 5 mg PO DAILY 07/22/17 [History] Vit C/Vit E AC/Lut/Mineral 1 [Prosight with Lutein Capsule] 1 each PO BID 01/29/18 [History] Atorvastatin [Lipitor] 40 mg PO HS 08/26/18 [History] Cefuroxime Axetil [Cefuroxime] 250 mg PO BID 10/19/18 [History] Hydrocortisone 1% CREAM [Cortaid] 1 appl TP DAILY PRN 10/19/18 [History] Ipratropium/Albuterol Neb [Duoneb] 3 ml IH Q4HR PRN 10/19/18 [History] Lactulose [Enulose] 10 gm PO QAM 10/19/18 [History] Magnesium Citrate 296 ml PO DAILY PRN 10/19/18 [History] Magnesium Sulfate [Epsom Salt] 6.25 gm PO DAILY PRN 10/19/18 [History] Methyl Salicylate/Menth/Camph [[place] Ultra Strength Cream] 1 appl TP Q12H PRN MDD LOWER BACK 10/19/18 [History] Nitrofurantoin Monohyd/M-Cryst [Macrobid 100 mg Capsule] 100 mg PO BID 10/19/18 [History] Peg 400/Hypromellose/Glycerin [Visine Tears Drops] 1 drop BOTH EYES Q12H PRN 10/19/18 [History] Phenyleph/Pramoxin/Glycr/W.pet [Preparation H Cream] 1 appl TP BID PRN 10/19/18 [History] Allergy/AdvReac Type Severity Reaction Status Date / Time tuberculin,PPD,multi-puncture Allergy Hives Verified 08/26/18 00:31 All Systems PM: A 10-system review of systems was performed and is negative for pertinent findings except as documented above in the HPI. - Constitutional Constitutional: no chills, no fever(s) - EENT Eyes: as per HPI - Cardiovascular Cardiovascular ROS IM: no chest pain, no dyspnea, no edema, no lightheadedness, no palpitations - Respiratory Respiratory: no cough, no dyspnea, no hemoptysis, no wheezing - Gastrointestinal Gastrointestinal: constipation, nausea, no abdominal pain, no diarrhea, no loose stools, no melena, no vomiting - Genitourinary Genitourinary ROS male: dysuria, no flank pain, no hematuria - Musculoskeletal Musculoskeletal ROS IM: as per HPI - Neurological Neurological ROS: tremor(s) (Chronic.), no dizziness - Psychiatric Psychiatric: as per HPI - Constitutional Vitals: Temp Pulse Resp BP Pulse Ox 97.4 F L 63 16 160/78 98 10/19/18 13:56 10/19/18 13:56 10/19/18 17:15 10/19/18 17:15 10/19/18 13:56 Exam: GENERAL APPEARANCE: Well developed, well nourished, alert and cooperative, and appears to be in no acute distress. HEAD: normocephalic. EYES: vision is grossly intact. EARS: hearing grossly intact. NOSE: No nasal discharge. THROAT: Oral cavity and pharynx normal. No inflammation, swelling, exudate, or lesions. NECK: Neck supple, non-tender without lymphadenopathy, masses or thyromegaly. CARDIAC: Normal S1 and S2. No S3, S4 or murmurs. Rhythm is regular. There is no peripheral edema, cyanosis or pallor. Extremities are warm and well perfused. Capillary refill is less than 2 seconds. No carotid bruits. LUNGS: Clear to auscultation and percussion without rales, rhonchi, wheezing or diminished breath sounds. ABDOMEN: Positive bowel sounds. Soft, nondistended, nontender. No guarding or rebound. No masses. MUSKULOSKELETAL: Adequately aligned spine. ROM intact spine and extremities. No joint erythema or tenderness. Normal muscular development. BACK: Examination of the spine reveals normal gait and posture, no spinal deformity, symmetry of spinal muscles, without tenderness, decreased range of motion or muscular spasm. EXTREMITIES: No significant deformity or joint abnormality. No edema. Peripheral pulses intact. No varicosities. LOWER EXTREMITY: Examination of both feet reveals all toes to be normal in size and symmetry, normal range of motion, normal sensation with distal capillary filling of less than 2 seconds without tenderness, swelling, discoloration, nodules, weakness or deformity; NEUROLOGICAL: Action tremors of his UE and head. No resting tremors. Negative glabellar reflex. SKIN: Skin normal color, texture and turgor with no lesions or eruptions. PSYCHIATRIC: The mental examination revealed the patient was oriented to person, place, and time. Internal Med - H&P Results - Labs CBC & Chem 7: 10/19/18 17:16 10/19/18 14:18 Labs: Short CBC 10/19/18 10/19/18 Range/Units 14:18 17:16 WBC 8.0 (4.3-11.1) K/mcL Hgb 10.7 L 10.6 L (12.9-16.9) g/dL Hct 33.6 L 33.5 L (37.5-50.1) % Plt Count 321 (140-400) K/mcL Neutrophils # 5.0 (1.6-8.9) K/mcL BMP 10/19/18 14:18 Sodium 138 Potassium 4.9 Chloride 108 H Carbon Dioxide 23 BUN 32 H Creatinine 2.54 H Glucose 96 Calcium 9.1 Liver Function 10/19/18 Range/Units 14:18 Total Bilirubin 0.4 (0.3-1.0) mg/dL AST 27 (13-39) Units/L ALT 30 (7-52) Units/L Alkaline Phosphatase 102 (34-104) Units/L Albumin 3.9 (3.5-5.7) g/dL Urine 10/19/18 Range/Units 14:15 Urine Color Yellow (Yellow) Urine Clarity Turbid A (Clear) Urine pH 7.0 (5.0-8.0) pH Units Ur Specific [place] 1.011 (1.010-1.025) Urine Protein 100 H (Neg-Trace) mg/dL Urine Glucose (UA) Normal (Normal) mg/dL - Impressions ITS Impressions Chest X-Ray 10/19/18 13:58 IMPRESSION: No acute pulmonary abnormality. D/ / Jean-Paul Matthew MD / Jean-Paul Matthew MD Interpreting Provider: Jean-Paul Matthew MD Abdomen/Pelvis CT 10/19/18 14:01 IMPRESSION: No acute intra-abdominal abnormality identified. Normal appearance of the rectum and perirectal tissues which appear unchanged from the prior study. Abnormal thickening of the posterior wall of the urinary bladder of uncertain significance. Recurrence of transitional cell carcinoma should be considered. Right ureteral stent in place with significant reduction in the degree of hydronephrosis previously seen. Complex cystic appearance of the lower pole of the right kidney appears be related to dilated calices with overlying renal atrophy. Chronic inflammation or infection of the uro epithelium. Small stable nonobstructing calculus inferiorly in the right kidney. Prior left nephrectomy. No finding worrisome for intra-abdominal metastatic disease. D/ / Randolph Kilgore MD / Randolph Kilgore MD Interpreting Provider: Randolph Kilgore MD - Assessment and Plan (1) GI bleed Current Visit: Yes Status: Acute Assessment and plan: Admitting to [facility] for the past 2 months. No melena or hematochezia. No hemoptysis. No red flag symptoms for recatal cancer such as recent weight loss. No active bleed for now. Hemoglobin stable and at baseline on arrival. He does have a history of iron deficieny anemia and anemia or chronic disease on history. He is afebrile. No diarrhea. Unlikely infectious. Vital signs stable. Plan: - GI consult for possible EGD/colonscopy evaluation. - NPO - IV protonix. - 2 large bore IV's. - Monitor H/H Q4H. Qualifiers: Qualified Code(s): K92.2 - Gastrointestinal hemorrhage, unspecified (2) Pyelonephritis Current Visit: Yes Status: Acute Assessment and plan: CT showed improved hydroneohrosis of the R kidney since stent placement in 09/12. Non-obstructing calculus in R kidney. UA was positive for LE. Past urine cultures have been positive for MDR ESBL. Past sensitivities show susceptible to zosyn. WBC is WNL. Afebrile. Plan: - Zosyn IV q6H. - IVF. Abdomen/Pelvis CT 10/19/18 14:01 IMPRESSION: No acute intra-abdominal abnormality identified. Normal appearance of the rectum and perirectal tissues which appear unchanged from the prior study. Abnormal thickening of the posterior wall of the urinary bladder of uncertain significance. Recurrence of transitional cell carcinoma should be considered. Right ureteral stent in place with significant reduction in the degree of hydronephrosis previously seen. Complex cystic appearance of the lower pole of the right kidney appears be related to dilated calices with overlying renal atrophy. Chronic inflammation or infection of the uro epithelium. Small stable nonobstructing calculus inferiorly in the right kidney. Prior left nephrectomy. No finding worrisome for intra-abdominal metastatic disease. D/ / Randolph Kilgore MD / Randolph Kilgore MD Interpreting Provider: Randolph Kilgore MD (3) Renal calculus Current Visit: Yes Status: Acute Assessment and plan: R non-obstructing renal calculus. Unchanged in size when compared to prior exam. Plan: - IVF. - Pain control. (4) Ureteral stent displacement Current Visit: Yes Status: Acute Assessment and plan: R kidney. Last replaced on 08/2018. Improvement of hydronephrosis since replacement. Qualifiers: Encounter type: sequela Qualified Code(s): T83.122S - Displacement of indwelling ureteral stent, sequela (5) CKD (chronic kidney disease) stage 4, GFR 15-29 ml/min Current Visit: No Status: Acute Assessment and plan: Creatinine on admission was 2.54. He is below is baseline which is 2.88. At baseline GFR. Plan: - IVF. - Renal dose medications. - Avoid nephrotoxins. (6) Bladder cancer Current Visit: No Status: Chronic Assessment and plan: Bladder papillary urothelial CA (2000). Qualifiers: Bladder location: unspecified site Qualified Code(s): C67.9 - Malignant neoplasm of bladder, unspecified (7) Hypertension Current Visit: No Status: Chronic Assessment and plan: BP 160/75. Plan: - Currently NPO tonight for possible EGD/colonoscopy tomorrow. - Resume home meds after procedure. - Continue to monitor. Qualifiers: Hypertension type: essential hypertension Qualified Code(s): I10 - Essential (primary) hypertension (8) DVT prophylaxis Current Visit: No Status: Acute Assessment and plan: - SCDs. (9) CAD (coronary artery disease) Current Visit: Yes Status: Acute Assessment and plan: Currently NPO. Plan: - Resume BB, statin, and ASA after EGD/colonoscopy. Qualifiers: Coronary Disease-Associated Artery/Lesion type: [place] artery [place] vs. transplanted heart: [place] heart Associated angina: without angina Qualified Code(s): I25.10 - Atherosclerotic heart disease of [place] coronary artery without angina pectoris - Time Spent With Patient Total time spent is greater than 50% in coordination of care (as documented) at patient's floor/unit and/or counseling patient: <Ronald Junior - Last Filed: 10/19/18 19:15> Date of Encounter: 10/19/18 Internal Medicine - H&P: HPI History of present illness: Mr. Finn is a 87 year old male Past Med Surg Social Fam HX - Additional Family History Additional family history: Reviewed with family and patient and noncontributory. All Systems PM: A 10-system review of systems was performed and is negative for pertinent findin gs except as documented above in the HPI. - Constitutional Vitals: Temp Pulse Resp BP Pulse Ox 97.4 F L 63 16 160/78 98 10/19/18 13:56 10/19/18 13:56 10/19/18 17:15 10/19/18 17:15 10/19/18 13:56 Internal Med - H&P Results - Labs CBC & Chem 7: 10/19/18 17:16 10/19/18 14:18 Labs: Short CBC 10/19/18 10/19/18 Range/Units 14:18 17:16 WBC 8.0 (4.3-11.1) K/mcL Hgb 10.7 L 10.6 L (12.9-16.9) g/dL Hct 33.6 L 33.5 L (37.5-50.1) % Plt Count 321 (140-400) K/mcL Neutrophils # 5.0 (1.6-8.9) K/mcL BMP 10/19/18 14:18 Sodium 138 Potassium 4.9 Chloride 108 H Carbon Dioxide 23 BUN 32 H Creatinine 2.54 H Glucose 96 Calcium 9.1 Liver Function 10/19/18 Range/Units 14:18 Total Bilirubin 0.4 (0.3-1.0) mg/dL AST 27 (13-39) Units/L ALT 30 (7-52) Units/L Alkaline Phosphatase 102 (34-104) Units/L Albumin 3.9 (3.5-5.7) g/dL Urine 10/19/18 Range/Units 14:15 Urine Color Yellow (Yellow) Urine Clarity Turbid A (Clear) Urine pH 7.0 (5.0-8.0) pH Units Ur Specific [place] 1.011 (1.010-1.025) Urine Protein 100 H (Neg-Trace) mg/dL Urine Glucose (UA) Normal (Normal) mg/dL - Impressions ITS Impressions Chest X-Ray 10/19/18 13:58 IMPRESSION: No acute pulmonary abnormality. D/ / Jean-Paul Matthew MD / Jean-Paul Matthew MD Interpreting Provider: Jean-Paul Matthew MD Abdomen/Pelvis CT 10/19/18 14:01 IMPRESSION: No acute intra-abdominal abnormality identified. Normal appearance of the rectum and perirectal tissues which appear unchanged from the prior study. Abnormal thickening of the posterior wall of the urinary bladder of uncertain significance. Recurrence of transitional cell carcinoma should be considered. Right ureteral stent in place with significant reduction in the degree of hydronephrosis previously seen. Complex cystic appearance of the lower pole of the right kidney appears be related to dilated calices with overlying renal atrophy. Chronic inflammation or infection of the uro epithelium. Small stable nonobstructing calculus inferiorly in the right kidney. Prior left nephrectomy. No finding worrisome for intra-abdominal metastatic disease. D/ / Randolph Kilgore MD / Randolph Kilgore MD Interpreting Provider: Randolph Kilgore MD - Assessment and Plan (1) Rectal bleed Current Visit: Yes Status: Acute (2) Pyelonephritis Current Visit: Yes Status: Acute (3) CKD (chronic kidney disease) stage 4, GFR 15-29 ml/min Current Visit: No Status: Acute (4) Bladder cancer Current Visit: No Status: Chronic Qualifiers: Bladder location: unspecified site Qualified Code(s): C67.9 - Malignant neoplasm of bladder, unspecified (5) CAD (coronary artery disease) Current Visit: Yes Status: Acute Qualifiers: Coronary Disease-Associated Artery/Lesion type: [place] artery [place] vs. transplanted heart: [place] heart Associated angina: without angina Qualified Code(s): I25.10 - Atherosclerotic heart disease of [place] coronary artery without angina pectoris (6) Hypertension Current Visit: No Status: Chronic Qualifiers: Hypertension type: essential hypertension Qualified Code(s): I10 - Essential (primary) hypertension - Time Spent With Patient Total time spent is greater than 50% in coordination of care (as documented) at patient's floor/unit and/or counseling patient: - Attending Attestation I examined this patient and my medical decision-making was reviewed with the Resident Physician on 10/19/18. I agree with the documented findings, disposition and treatment plan as described except to the extent set forth below. Mr Finn presented to ED with complaints of rectal bleeding. Has been happening for 3 months or so. Happened twice today. Bright red blood in toilet. Some nausea. Last colonoscopy 3 years ago in [place]. Has hx of bladder cancer and stent on L kidney with R nephrectomy. Multiple UTIs in past - MDRO. UA positive. Heart reg and abd soft. Admitted for GI eval and IV abx for UTI.
[2018-10-19] MEDS: Pantoprazole 40 MG VIAL IVP SCH (18:43)
[2018-10-19] MEDS: 0.9 % Sodium Chloride 1,000 ML IVC SCH (18:44)
[2018-10-19 21:53] LABS: Hematocrit 31.7 % (37.5-50.1); Hemoglobin 9.8 g/dL (12.9-16.9)
[2018-10-19] MEDS: Piperacillin/Tazobactam 3.375 GM in 0.9 % Sodium Chloride Mini Bag 100 ML IVPB SCH (23:11)
[2018-10-20] MEDS ORDERED: Piperacillin/Tazobactam 3.375 GM in 0.9 % Sodium Chloride Mini Bag 100 ML IVPB SCH
[2018-10-20 01:31] LABS: Hematocrit 29.8 % (37.5-50.1); Hemoglobin 9.4 g/dL (12.9-16.9); Mean Corpuscular HGB Conc 31.5 g/dL (31.6-35.5); Mean Corpuscular Hemoglobin 29.7 pg (28.0-33.3); Mean Platelet Volume 9.3 fL (9.4-12.4); Platelet Count 276 K/mcL (140-400); Red Blood Count 3.17 M/mcL (4.19-5.50); Red Cell Distribution Width 14.9 % (11.5-14.5); White Blood Count 5.9 K/mcL (4.3-11.1)
[2018-10-20 01:56] LABS: Calcium 8.7 mg/dL (8.6-10.3); Potassium 4.4 mEq/L (3.5-5.1)
[2018-10-20] MEDS: 0.9 % Sodium Chloride 1,000 ML IVC SCH (02:46)
[2018-10-20] MEDS: Pantoprazole 40 MG VIAL IVP SCH ×2 (06:04→17:41)
[2018-10-20] MEDS: Piperacillin/Tazobactam 3.375 GM in 0.9 % Sodium Chloride Mini Bag 100 ML IVPB SCH ×2 (06:10→10:23)
[2018-10-20 07:22] LABS: Hematocrit 30.9 % (37.5-50.1); Hemoglobin 9.6 g/dL (12.9-16.9)
--- NOTE | 2018-10-20 09:59 | Internal Med Progress Note ---
<Linda Perez - Last Filed: 10/20/18 16:42> Hospitalist Progress Note - Encounter Date of Encounter: 10/20/18 Time of Encounter: 09:58 - Subjective Interval History: Feels good today. No chest pain or shortness of breath. Denies abdominal pain. No pain with urination and denies back pain or increased frequency in urination. No fevers or chills. No bowel movement yet this admission. - Exam Vitals: Temp Pulse Resp BP Pulse Ox 97.9 F 57 16 129/58 95 10/20/18 07:10 10/20/18 07:10 10/20/18 07:10 10/20/18 07:10 10/20/18 07:10 Exam: General: No acute distress, resting comfortably in bed HEENT: head normocephalic/atraumatic, EOMI, PERRL, sclera anicteric, moist mucus membranes, Neck: Supple, no lymphadenopathy Cardio: RRR, no murmurs, +S1/S2 Pulm: CTAB, no wheezing/rhonchi/rales. Normal respiratory effort. Abdomen: soft, nontender, active bowel sounds, no rebound/rigidity/guarding/distention Extremities: No LE edema, no cyanosis, no clubbing Back: normal appearance on inspection, nontender throughout Neuro: AAOx3, resting tremors, no focal deficits, no speech deficit, mentating well, CN II-XII grossly intact, moves all extremities spontaneously MSK: Strength 5/5 throughout, no visible deformities, no joint swelling Skin: clean, dry, intact, no visible rashes Psych: Appropriate mood and affect. Answers questions appropriately. Cooperative with exam - Assessment and Plan (1) GI bleed Current Visit: Yes Status: Suspected Assessment and Plan: Hgb stable, appears to be within his baseline and is hemodynamically stable. No episodes BRBPR or bloody bowel movements since admission. GI following consulted and recommend colonoscopy to rule out bleeding polyps, hemorrhoids, AVMs, malignancy; GI has ordered bowel prep. NPO at midnight. Continue IV protonix. Continue monitoring for signs of active bleed, will transfuse if needed. (2) Asymptomatic bacteriuria Current Visit: Yes Status: Acute Assessment and Plan: Suspect pt is colonized--he is afebrile, white count is WNL, no complaints of dysuria, abdominal pain, increased frequency, or hematuria. History of urine cultures have been positive for E. coli ESBL Urine culture shows gram negative amalia, final culture and sensitivity pending. Zosyn discontinued. Continue monitoring, low threshold to restart abx if pt becomes symptomatic or clinical picture changes. (3) Renal calculus Current Visit: Yes Status: Acute Assessment and Plan: right-sided, non-obstructing, and stable size compared to previous imaging. (4) S/P ureteral stent placement Current Visit: Yes Status: Acute Assessment and Plan: Right ureteral stent last placed August 2018 with improvement of hydronephrosis noted on CT abdomen/pelvis. (5) Anemia Current Visit: Yes Status: Acute Assessment and Plan: Hgb stable, appears to be within his baseline Normocytic, normochromic--likely related to chronic kidney disease. Continue to monitor. (6) Hypertension Current Visit: No Status: Chronic Assessment and Plan: BP is within normal limits. Holding home anti-hypertensives, pt is NPO for colonoscopy. (7) CKD (chronic kidney disease) stage 4, GFR 15-29 ml/min Current Visit: Yes Status: Chronic Assessment and Plan: Recent baseline Cr around 3. Continue to monitor on metabolic panel. Will continue to avoid nephrotoxins and renally dose medications. (8) Bladder cancer Current Visit: No Status: Chronic Assessment and Plan: Bladder papillary urothelial CA (2000). CT abdomen/pelvis shows abnormal thickening of the posterior wall of the urinary bladder, uncertain significance. DVT Prophylaxis: SCDs for now - Time Spent with Patient Total time spent is greater than 50% in coordination of care (as documented) at patient's floor/unit and/or counseling patient: Internal Medicine: Result - Labs CBC & Chem 7: 10/20/18 05:29 10/20/18 01:01 Labs: Short CBC 10/19/18 10/19/18 10/19/18 Range/Units 14:18 17:16 21:07 WBC 8.0 (4.3-11.1) K/mcL Hgb 10.7 L 10.6 L 9.8 L (12.9-16.9) g/dL Hct 33.6 L 33.5 L 31.7 L (37.5-50.1) % Plt Count 321 (140-400) K/mcL Neutrophils # 5.0 (1.6-8.9) K/mcL 10/20/18 10/20/18 Range/Units 01:01 05:29 WBC 5.9 (4.3-11.1) K/mcL Hgb 9.4 L 9.6 L (12.9-16.9) g/dL Hct 29.8 L 30.9 L (37.5-50.1) % Plt Count 276 (140-400) K/mcL Neutrophils # (1.6-8.9) K/mcL BMP 10/19/18 10/20/18 14:18 01:01 Sodium 138 139 Potassium 4.9 4.4 Chloride 108 H 111 H Carbon Dioxide 23 21 L BUN 32 H 31 H Creatinine 2.54 H 2.44 H Glucose 96 82 Calcium 9.1 8.7 Liver Function 10/19/18 Range/Units 14:18 Total Bilirubin 0.4 (0.3-1.0) mg/dL AST 27 (13-39) Units/L ALT 30 (7-52) Units/L Alkaline Phosphatase 102 (34-104) Units/L Albumin 3.9 (3.5-5.7) g/dL Urine 10/19/18 Range/Units 14:15 Urine Color Yellow (Yellow) Urine Clarity Turbid A (Clear) Urine pH 7.0 (5.0-8.0) pH Units Ur Specific [place] 1.011 (1.010-1.025) Urine Protein 100 H (Neg-Trace) mg/dL Urine Glucose (UA) Normal (Normal) mg/dL - ABG Interpretation ABG results: PT/INR, D-dimer PT 12.3 Seconds (9.4-12.1) H 10/19/18 17:16 - Impressions Impressions Chest X-Ray 10/19/18 13:58 IMPRESSION: No acute pulmonary abnormality. D/ / Jean-Paul Matthew MD / Jean-Paul Matthew MD Interpreting Provider: Jean-Paul Matthew MD Abdomen/Pelvis CT 10/19/18 14:01 IMPRESSION: No acute intra-abdominal abnormality identified. Normal appearance of the rectum and perirectal tissues which appear unchanged from the prior study. Abnormal thickening of the posterior wall of the urinary bladder of uncertain significance. Recurrence of transitional cell carcinoma should be considered. Right ureteral stent in place with significant reduction in the degree of hydronephrosis previously seen. Complex cystic appearance of the lower pole of the right kidney appears be related to dilated calices with overlying renal atrophy. Chronic inflammation or infection of the uro epithelium. Small stable nonobstructing calculus inferiorly in the right kidney. Prior left nephrectomy. No finding worrisome for intra-abdominal metastatic disease. D/ / Randolph Kilgore MD / Randolph Kilgore MD Interpreting Provider: Randolph Kilgore MD - VTE Documentation of Mechanical Device: Graduated compression elastic hosiery Consult Discharge Plan - Plan Referrals: NONE,PCP [Primary Care Provider] - <Sherif Souza - Last Filed: 10/20/18 18:14> Hospitalist Progress Note - Encounter Date of Encounter: 10/20/18 - Exam Vitals: Temp Pulse Resp BP Pulse Ox 98.3 F 66 16 140/66 95 10/20/18 17:42 10/20/18 17:42 10/20/18 17:42 10/20/18 17:42 10/20/18 17:42 - Assessment and Plan (1) Bladder cancer Current Visit: No Status: Chronic (2) Hypertension Current Visit: No Status: Chronic (3) CKD (chronic kidney disease) stage 4, GFR 15-29 ml/min Current Visit: Yes Status: Chronic (4) Rectal bleed Current Visit: Yes Status: Acute (5) Pyelonephritis Current Visit: Yes Status: Acute (6) CAD (coronary artery disease) Current Visit: Yes Status: Acute - Time Spent with Patient Total time spent is greater than 50% in coordination of care (as documented) at patient's floor/unit and/or counseling patient: Internal Medicine: Result - Labs CBC & Chem 7: 10/20/18 05:29 10/20/18 01:01 Labs: Short CBC 10/19/18 10/20/18 10/20/18 Range/Units 21:07 01:01 05:29 WBC 5.9 (4.3-11.1) K/mcL Hgb 9.8 L 9.4 L 9.6 L (12.9-16.9) g/dL Hct 31.7 L 29.8 L 30.9 L (37.5-50.1) % Plt Count 276 (140-400) K/mcL BMP 10/20/18 01:01 Sodium 139 Potassium 4.4 Chloride 111 H Carbon Dioxide 21 L BUN 31 H Creatinine 2.44 H Glucose 82 Calcium 8.7 - ABG Interpretation ABG results: PT/INR, D-dimer PT 12.3 Seconds (9.4-12.1) H 10/19/18 17:16 - Attending Attestation I examined this patient and my medical decision-making was reviewed with the Resident Physician. I agree with the documented findings, disposition and treatment plan as described except to the extent set forth below. Patient seen and examined at bedside. Patient states that he feels pretty good today. Denies any dysuria or abdominal pain. On exam his abdomen is soft, nontender with normoactive bowel sounds. Bright red blood per rectum: Hemoglobin slightly diminished but stable. No bloody bowel movement since presentation. GI consulted, plan for colonoscopy tomorrow. Asymptomatic bacteriuria. Patient denies any urinary tract symptoms. He is afebrile without leukocytosis, given these findings continue antibiotics as patient has history of multiple drug-resistant organisms and exposing him to antibiotics unnecessarily can worsen his antibiotic resistance. If patient develops symptoms we will have low threshold to treat. <Linda ePrez - Last Filed: 10/20/18 16:42> (1) GI bleed Qualifiers: Qualified Code(s): K92.2 - Gastrointestinal hemorrhage, unspecified (5) Anemia Qualifiers: Iron deficiency anemia type: other iron deficiency (6) Hypertension Qualifiers: Hypertension type: essential hypertension Qualified Code(s): I10 - Essential (primary) hypertension (8) Bladder cancer Qualifiers: Bladder location: unspecified site Qualified Code(s): C67.9 - Malignant neoplasm of bladder, unspecified <Sherif Souza - Last Filed: 10/20/18 18:14> (1) Bladder cancer Qualifiers: Bladder location: unspecified site Qualified Code(s): C67.9 - Malignant neoplasm of bladder, unspecified (2) Hypertension Qualifiers: Hypertension type: essential hypertension Qualified Code(s): I10 - Essential (primary) hypertension (6) CAD (coronary artery disease) Qualifiers: Coronary Disease-Associated Artery/Lesion type: [place] artery [place] vs. transplanted heart: [place] heart Associated angina: without angina Qualified Code(s): I25.10 - Atherosclerotic heart disease of [place] coronary artery without angina pectoris
--- NOTE | 2018-10-20 12:45 | Electrocardiograph Report ---
[address] [address] Test Date: 2018-10-19 Pat Name: Austin Finn Department: EXAM6 Room: 3A22 Gender: M Plant Manager: : [id number] Requested By: Brittani Almeida Order Number: [id number] Reading MD: Leida Romero Measurements Intervals [place] Rate: 57 P: 51 LA: 170 QRS: 40 QRSD: 107 T: 56 QT: 426 QTc: 415 Interpretive Statements Sinus rhythm Electronically Signed On 10-20-2018 12:43:54 EDT by Leida Romero
--- NOTE | 2018-10-20 15:19 | Gastroenterology Consult Note ---
<Analy Luong - Last Filed: 10/20/18 15:23> Date of Encounter: 10/20/18 Time of Encounter: 10:15 - Assessment and plan (1) Rectal bleed Status: Acute Assessment and plan: 87 year old male who presents with bright red rectal bleeding and anemia. Per the patient has been ongoing for months. Pt was advised colonoscopy to rule out bleeding polyps/hemorrhoids, IBD, malignancy or avms and he agrees. Spoke with pts daughter Katrin who is pOA and she consented to colonoscopy. Prep ordered. Monitor H&H transfuse as needed. (2) Anemia Status: Acute Qualifiers: Anemia type: iron deficiency Iron deficiency anemia type: other iron deficiency Qualified Code(s): D50.8 - Other iron deficiency anemias - Time Spent With Patient Total time spent is greater than 50% in coordination of care (as documented) at patient's floor/unit and/or counseling patient: GI History of Present Illness - Data of Consult Patient: new to practice Consult date: 10/20/18 Requesting Physician: Sherif Souza, - Consult Narrative Reason for consult: retal bleeding History of present illness: Mr. Finn is a 87 year old male with a past medical history of bladder papillary urothelial cancer (2000), coronary artery disease, hypertension, CKD stage IV with a PSH of L nephrectomy (2014) that presents today for GI bleed. Patient has been complaining of bright red blood per rectum for the past 2 months. He says it occurs intermittently but denies daily frequency. On the day of admission he had two episodes of bright red rectal bleeding followed by nausea. He denies any abdominal pain. Patient denies any vomiting. Also denies any diarrhea. Patient lives at a shelter facility. He follows urology here at [facility]. He recently had a urinal stent replacement back in 08/2018. Hemoglobin level was at 10.7 with his baseline being around 9.5. His creatinine was at 2.54 with a baseline of 2.88. Urinalysis revealed moderate blood and a large leukocyte Estrace. Chest x-ray was normal. Stool occult was positive for blood. He does admit to dysuria but denies any gross hematuria. Denies any recent weight loss. CT of the abdomen and pelvis showed no acute abnormality in the colon or abdomen. Some bladder wall thickening is noted. NSAIDS: none Anticoagulants: none Procedures: Colonosopy [id number] in [place] normal per pt Past Med Surg Social Fam HX - Past Medical History Medical history: cancer, coronary artery disease, GERD, hyperlipidemia, hypertension, renal disease Additional medical history: Bladder CA. Anemia. Constipation. Tremors Psychiatric history: anxiety - Past Surgical History Additional surgical history: Left Kidney Removed. Right Kidney Stent(s). Coronary Angioplasty/Stent - Social History Smoking Status: Former smoker Smokeless Tobacco Status: No Alcohol use: none Drug use: none Review of Systems: GI: as per [facility] GENERAL: denies fever, has some chills EYES: denies yellow discoloration ENT: denies pain with swallowing or difficulty swallowing CARDIO: denies chest pain, palpitations RESP: Shortness of breath with exertion : denies change in color of urine NEURO: weakness HEME: Denies any bruising MS: denies joint pain, joint swelling or back pain. DERM: denies rash or itching PSYCH: Denies history of anxiety or depression - Constitutional Vitals: Temp Pulse Resp BP Pulse Ox 98.3 F 48 17 151/58 95 10/20/18 12:44 10/20/18 12:44 10/20/18 12:44 10/20/18 12:44 10/20/18 12:44 Exam: CONSTITUTIONAL:alert, no acute distress.HEAD:normocephalic.EYES:no jaundice.NECK:no obvious swelling.HEART:regular rate and rhythm, no murmurs.LUNGS:bilateral fair air entry.ABDOMEN:non distended, soft, non tender, no masses palpable, no organomegaly.RECTAL EXAM:Deferred.EXTREMITIES:no clubbing, cyanosis or edema.SKIN:pallor noted, no stigmata of chronic liver disease.NEUROLOGIC:no obvious focal defect, tremor noted. Results - Labs CBC & Chem 7: 10/20/18 05:29 10/20/18 01:01 Labs: Entire Visit 10/20/18 05:29 Hgb 9.6 L Hct 30.9 L - ABG ABG results: PT/INR, D-dimer PT 12.3 Seconds (9.4-12.1) H 10/19/18 17:16 - Impressions Impressions Abdomen/Pelvis CT 10/19/18 14:01 IMPRESSION: No acute intra-abdominal abnormality identified. Normal appearance of the rectum and perirectal tissues which appear unchanged from the prior study. Abnormal thickening of the posterior wall of the urinary bladder of uncertain significance. Recurrence of transitional cell carcinoma should be considered. Right ureteral stent in place with significant reduction in the degree of hydronephrosis previously seen. Complex cystic appearance of the lower pole of the right kidney appears be related to dilated calices with overlying renal atrophy. Chronic inflammation or infection of the uro epithelium. Small stable nonobstructing calculus inferiorly in the right kidney. Prior left nephrectomy. No finding worrisome for intra-abdominal metastatic disease. D/ / Randolph Kilgore MD / Randolph Kilgore MD Interpreting Provider: Randolph Kilgore MD Consult Discharge Plan - Plan Instructions: Acute Kidney Injury (DC), Anemia (GEN) Referrals: Todd Pearl MD [Partnered Physician] - (Web request sent, please call patient) NONE,PCP [Primary Care Provider] - <Todd Pearl - Last Filed: 10/25/18 04:06> Date of Encounter: 10/20/18 - Time Spent With Patient Total time spent is greater than 50% in coordination of care (as documented) at patient's floor/unit and/or counseling patient: GI History of Present Illness - Data of Consult Requesting Physician: Sherif Souza, - Consult Narrative History of present illness: Mr. Finn is a 87 year old male - Constitutional Vitals: Temp Pulse Resp BP Pulse Ox 98.0 F 71 15 139/72 98 10/22/18 10:28 10/22/18 10:28 10/22/18 10:28 10/22/18 10:28 10/22/18 10:28 Results - Labs CBC & Chem 7: 10/22/18 04:48 10/22/18 04:48 - ABG ABG results: PT/INR, D-dimer PT 12.3 Seconds (9.4-12.1) H 10/19/18 17:16 - Attending Attestation Patient admitted with history of bright red bleeding per rectum and anemia. Plan colonoscopy. Informed consent obtained from daughter, Katrin.Further recommendations to follow. I have personally performed a face to face evaluation on this patient. I have reviewed and agree with the care plan. History and Exam by me shows:
[2018-10-20] MEDS ORDERED: Ipratropium/Albuterol Neb 3 ML IH PRN (16:46)
[2018-10-20] MEDS ORDERED: SODIUM CHLORIDE/NAHCO3/KCL/PEG 4,000 ML SOLN.RECON PO ONE (17:00)
--- NOTE | 2018-10-20 17:59 | Anesthesia Evaluation PreOp ---
Date of Encounter: 10/20/18 Time of Encounter: 19:10 - Past History Planned Operation: Colonoscopy Cardiac History: GA (2014), HTN, Hyperlipidemia, Cardiac Stent (x1 2005) SERVICE OPERATIONS MANAGER History: Other (tremors) Other Medical History: Renal (CRD Stage 4), GERD, Other (H/O bladder CA S/P tumor resection/chemo) Anesthesia History: No Prior Anesthetic Complications, Past Anesthesia (cysto/stent, L-Nephrectomy 2014) Alcohol Use: none Drug use: none Medications and Allergies Carvedilol [Coreg] 6.25 mg PO BIDWM 07/22/17 [History] Ketoconazole 2% CRM [Nizoral Cream] 1 appl TP DAILY PRN MDD FACE 07/22/17 [History] Pantoprazole Sodium [Protonix] 40 mg PO QAM 07/22/17 [History] Polyethylene Glycol 3350 [MiraLAX] 17 gm PO Q12H PRN 07/22/17 [History] Selenium Sulfide 1 appl TP DAILY PRN 07/22/17 [History] Sodium Bicarbonate 650 mg PO BID 07/22/17 [History] amLODIPine [Norvasc] 5 mg PO DAILY 07/22/17 [History] Vit C/Vit E AC/Lut/Mineral 1 [Prosight with Lutein Capsule] 1 each PO BID 01/29/18 [History] Atorvastatin [Lipitor] 40 mg PO HS 08/26/18 [History] Cefuroxime Axetil [Cefuroxime] 250 mg PO BID 10/19/18 [History] Hydrocortisone 1% CREAM [Cortaid] 1 appl TP DAILY PRN 10/19/18 [History] Ipratropium/Albuterol Neb [Duoneb] 3 ml IH Q4HR PRN 10/19/18 [History] Lactulose [Enulose] 10 gm PO QAM 10/19/18 [History] Magnesium Citrate 296 ml PO DAILY PRN 10/19/18 [History] Magnesium Sulfate [Epsom Salt] 6.25 gm PO DAILY PRN 10/19/18 [History] Methyl Salicylate/Menth/Camph [Bengay Ultra Strength Cream] 1 appl TP Q12H PRN MDD LOWER BACK 10/19/18 [History] Nitrofurantoin Monohyd/M-Cryst [Macrobid 100 mg Capsule] 100 mg PO BID 10/19/18 [History] Peg 400/Hypromellose/Glycerin [Visine Tears Drops] 1 drop BOTH EYES Q12H PRN 10/19/18 [History] Phenyleph/Pramoxin/Glycr/W.pet [Preparation H Cream] 1 appl TP BID PRN 10/19/18 [History] Allergy/AdvReac Type Severity Reaction Status Date / Time tuberculin,PPD,multi-puncture Allergy Hives Verified 08/26/18 00:31 - Meds/Allergy Pre-op Review Medications Reviewed: Yes Allergies Reviewed: Yes Beta Blockers on Current Med List: No (None listed in MAR) Anesthesia Results - Labs 10/20/18 05:29 10/20/18 01:01 - Imaging EKG: report reviewed (SR) Anesthesia Exam Vital Signs/O2 Sat, Most Current Temp Pulse Resp BP Pulse Ox 98.3 F 66 16 140/66 95 10/20/18 17:42 10/20/18 17:42 10/20/18 17:42 10/20/18 17:42 10/20/18 17:42 - HEENT Pupil (Motor): Pupils equal, EOMI Mallampati: III Teeth: Normal Oral Opening: Greater than 3 - SERVICE OPERATIONS MANAGER LOC: Oriented SERVICE OPERATIONS MANAGER Motor: Normal RUE, Normal LUE, Normal RLE, Normal LLE, Normal Face SERVICE OPERATIONS MANAGER Sensory: Normal: RUE, LUE, RLE, LLE, Face - Cardiac Rhythm: Regular Murmur: None JVD: No Carotid Bruit: No - Pulmonary Breath Sounds: bilateral Clear Respiratory Effort: Symmetrical Anesthesia Assess/Plan ASA Score: 3 Level of consciousness: Cooperative Anesthetic Plan: MAC Autologous Blood: Yes Monitoring Plan: Standard Monitors Recovery Plan: Other
[2018-10-21] MEDS: Pantoprazole 40 MG VIAL IVP SCH ×2 (05:54→17:24)
--- NOTE | 2018-10-21 07:36 | Internal Med Progress Note ---
<Sherif Souza - Last Filed: 10/21/18 14:33> Hospitalist Progress Note - Encounter Date of Encounter: 10/21/18 - Exam Vitals: Temp Pulse Resp BP Pulse Ox 98.5 F 57 18 124/57 95 10/21/18 11:29 10/21/18 11:29 10/21/18 11:29 10/21/18 11:29 10/21/18 11:29 - Assessment and Plan (1) Bladder cancer Current Visit: No Status: Chronic (2) Hypertension Current Visit: No Status: Chronic (3) CKD (chronic kidney disease) stage 4, GFR 15-29 ml/min Current Visit: Yes Status: Chronic (4) Rectal bleed Current Visit: Yes Status: Acute (5) Pyelonephritis Current Visit: Yes Status: Acute (6) CAD (coronary artery disease) Current Visit: Yes Status: Acute - Time Spent with Patient Total time spent is greater than 50% in coordination of care (as documented) at patient's floor/unit and/or counseling patient: Internal Medicine: Result - Labs CBC & Chem 7: 10/21/18 07:23 10/21/18 07:24 Labs: Short CBC 10/21/18 Range/Units 07:23 WBC 7.2 (4.3-11.1) K/mcL Hgb 9.8 L (12.9-16.9) g/dL Hct 30.9 L (37.5-50.1) % Plt Count 284 (140-400) K/mcL Neutrophils # 4.6 (1.6-8.9) K/mcL BMP 10/21/18 07:24 Sodium 141 Potassium 4.4 Chloride 111 H Carbon Dioxide 21 L BUN 27 H Creatinine 2.55 H Glucose 77 Calcium 8.9 - ABG Interpretation ABG results: PT/INR, D-dimer PT 12.3 Seconds (9.4-12.1) H 10/19/18 17:16 Consult Discharge Plan - Plan Referrals: NONE,PCP [Primary Care Provider] - - Attending Attestation I examined this patient and my medical decision-making was reviewed with the Resident Physician. I agree with the documented findings, disposition and treatment plan as described except to the extent set forth below. Patient seen and examined at bedside. Patient states that he feels good today. He had multiple bowel movements overnight with his prep and states that he noticed red blood in each one of these. On exam his abdomen is soft, nontender with normoactive bowel sounds. Bright red blood per rectum: Hemoglobin stable today. Patient states he did have blood with his prep overnight. GI following, colonoscopy today. Asymptomatic bacteriuria: Urine culture noted to be positive for Escherichia coli MDRO. Patient denies any urinary tract symptoms. He remains afebrile without leukocytosis. Given these findings we will consider this asymptomatic bacteriuria continue to hold off treatment. Would have low threshold to treat if patient develops symptoms but is overall extremely clinically stable this time. <Max Salinas - Last Filed: 10/21/18 14:45> Hospitalist Progress Note - Encounter Date of Encounter: 10/21/18 Time of Encounter: 08:30 - Subjective Interval History: When seen today patient was resting comfortably in his bed. He denied any chest pain or shortness of breath. Denied any abdominal pain or nausea or vomiting. He did admit to having some blood with his stools last night. Denied any fever. Denies any cough or wheezing. - Exam Vitals: Temp Pulse Resp BP Pulse Ox 98.2 F 79 18 126/71 98 10/21/18 07:12 10/21/18 07:12 10/21/18 07:12 10/21/18 07:12 10/21/18 07:12 Exam: GENERAL APPEARANCE: Well developed, well nourished, alert and cooperative, and appears to be in no acute distress. HEAD: normocephalic. EYES: vision is grossly intact. EARS: hearing grossly intact. NOSE: No nasal discharge. THROAT: Oral cavity and pharynx normal. No inflammation, swelling, exudate, or lesions. NECK: Neck supple, non-tender without lymphadenopathy, masses or thyromegaly. CARDIAC: Normal S1 and S2. No S3, S4 or murmurs. Rhythm is regular. There is no peripheral edema, cyanosis or pallor. Extremities are warm and well perfused. Capillary refill is less than 2 seconds. No carotid bruits. LUNGS: Clear to auscultation and percussion without rales, rhonchi, wheezing or diminished breath sounds. ABDOMEN: Positive bowel sounds. Soft, nondistended, nontender. No guarding or rebound. No masses. MUSKULOSKELETAL: Adequately aligned spine. ROM intact spine and extremities. No joint erythema or tenderness. Normal muscular development. BACK: Examination of the spine reveals normal gait and posture, no spinal deformity, symmetry of spinal muscles, without tenderness, decreased range of motion or muscular spasm. EXTREMITIES: No significant deformity or joint abnormality. No edema. Peripheral pulses intact. No varicosities. LOWER EXTREMITY: Examination of both feet reveals all toes to be normal in size and symmetry, normal range of motion, normal sensation with distal capillary filling of less than 2 seconds without tenderness, swelling, discoloration, nodules, weakness or deformity; NEUROLOGICAL: Action tremors of his UE and head. No resting tremors. SKIN: Skin normal color, texture and turgor with no lesions or eruptions. PSYCHIATRIC: The mental examination revealed the patient was oriented to person, place, and time. - Assessment and Plan (1) GI bleed Current Visit: Yes Status: Suspected Assessment and Plan: Admitting to [facility] for the past 2 months. No melena or hematochezia. No hemoptysis. No red flag symptoms for recatal cancer such as recent weight loss. No active bleed for now. Hemoglobin stable and at baseline on arrival. He does have a history of iron deficieny anemia and anemia or chronic disease on history. He is afebrile. No diarrhea. Unlikely infectious. Vital signs stable. 10/21/18: Patient admitted to some blood in his BM overnight. Hemoglobin is currently stable. Vital signs are normal. Awaiting scope evaluation today. Plan: - EGD/Colonoscopy today. - NPO - IV protonix. - 2 large bore IV's. (2) Asymptomatic bacteriuria Current Visit: Yes Status: Acute Assessment and Plan: Suspect patient is colonized--he is afebrile, white count is WNL, no complaints of dysuria, abdominal pain, increased frequency, or hematuria. History of urine cultures have been positive for E. coli ESBL. Urine culture shows E.Coli MDRO. Plan: - Continue to monitor. (3) Renal calculus Current Visit: Yes Status: Acute Assessment and Plan: R non-obstructing renal calculus. Unchanged in size when compared to prior exam. Plan: - IVF. - Pain control. (4) Ureteral stent displacement Current Visit: Yes Status: Acute Assessment and Plan: R kidney. Last replaced on 08/2018. Improvement of hydronephrosis since replacement. (5) CKD (chronic kidney disease) stage 4, GFR 15-29 ml/min Current Visit: Yes Status: Chronic Assessment and Plan: Creatinine on admission was 2.54. Currently at 2.55. He is below is baseline which is 2.88. At baseline GFR. Plan: - IVF. - Renal dose medications. - Avoid nephrotoxins. (6) Bladder cancer Current Visit: No Status: Chronic Assessment and Plan: Bladder papillary urothelial CA (2000). (7) Hypertension Current Visit: No Status: Chronic Assessment and Plan: BP 126/71. Plan: - Currently NPO tonight for EGD/colonoscopy today. - Resume home meds after procedure. - Continue to monitor. (8) CAD (coronary artery disease) Current Visit: Yes Status: Acute Assessment and Plan: Currently NPO. Plan: - Resume BB, statin, and ASA after EGD/colonoscopy. (9) DVT prophylaxis Current Visit: No Status: Acute Assessment and Plan: SCDs. DVT Prophylaxis: SCDs for now - Time Spent with Patient Total time spent is greater than 50% in coordination of care (as documented) at patient's floor/unit and/or counseling patient: Internal Medicine: Result - Labs CBC & Chem 7: 10/21/18 07:23 10/21/18 07:24 - ABG Interpretation ABG results: PT/INR, D-dimer PT 12.3 Seconds (9.4-12.1) H 10/19/18 17:16 - VTE Documentation of Mechanical Device: Graduated compression elastic hosiery <Sherif Souza - Last Filed: 10/21/18 14:33> (1) Bladder cancer Qualifiers: Bladder location: unspecified site Qualified Code(s): C67.9 - Malignant neoplasm of bladder, unspecified (2) Hypertension Qualifiers: Hypertension type: essential hypertension Qualified Code(s): I10 - Essential (primary) hypertension (6) CAD (coronary artery disease) Qualifiers: Coronary Disease-Associated Artery/Lesion type: [place] artery [place] vs. transplanted heart: [place] heart Associated angina: without angina Qualified Code(s): I25.10 - Atherosclerotic heart disease of [place] coronary artery without angina pectoris <Max Salinas - Last Filed: 10/21/18 14:45> (1) GI bleed Qualifiers: Qualified Code(s): K92.2 - Gastrointestinal hemorrhage, unspecified (4) Ureteral stent displacement Qualifiers: Encounter type: sequela Qualified Code(s): T83.122S - Displacement of indwelling ureteral stent, sequela (6) Bladder cancer Qualifiers: Bladder location: unspecified site Qualified Code(s): C67.9 - Malignant neoplasm of bladder, unspecified (7) Hypertension Qualifiers: Hypertension type: essential hypertension Qualified Code(s): I10 - Essential (primary) hypertension (8) CAD (coronary artery disease) Qualifiers: Coronary Disease-Associated Artery/Lesion type: [place] artery [place] vs. transplanted heart: [place] heart Associated angina: without angina Qualified Code(s): I25.10 - Atherosclerotic heart disease of [place] coronary artery without angina pectoris
[2018-10-21 08:08] LABS: Basophils % 0.4 %; Eosinophils # 0.1 K/mcL (0.0-0.6); Eosinophils % 1.7 %; Hematocrit 30.9 % (37.5-50.1); Hemoglobin 9.8 g/dL (12.9-16.9); Immature Granulocytes % 0.3 % (0-4); Immature Platelets 1.3 % (1.1-6.1); Lymphocytes # 1.8 K/mcL (0.6-4.6); Mean Corpuscular HGB Conc 31.7 g/dL (31.6-35.5); Mean Corpuscular Hemoglobin 29.4 pg (28.0-33.3); Mean Corpuscular Volume 92.8 fL (83.0-100.0); Mean Platelet Volume 9.3 fL (9.4-12.4); Monocytes # 0.7 K/mcL (0.0-1.3); Monocytes % 9.1 %; Neutrophils # 4.6 K/mcL (1.6-8.9); Platelet Count 284 K/mcL (140-400); Red Blood Count 3.33 M/mcL (4.19-5.50); Red Cell Distribution Width 14.8 % (11.5-14.5); Segmented Neutrophils % 63.5 %; White Blood Count 7.2 K/mcL (4.3-11.1)
[2018-10-21 09:17] LABS: Calcium 8.9 mg/dL (8.6-10.3); Potassium 4.4 mEq/L (3.5-5.1)
[2018-10-21] MEDS ORDERED: Lidocaine -MPF 2% 2 ML VIAL ONE (17:31)
[2018-10-21] MEDS ORDERED: *HR* Propofol 200 MG/20 ML VIAL IVP ONE ×2 (17:31→18:02)
[2018-10-22 05:32] LABS: Hematocrit 31.2 % (37.5-50.1); Hemoglobin 9.7 g/dL (12.9-16.9); Mean Corpuscular HGB Conc 31.1 g/dL (31.6-35.5); Mean Corpuscular Hemoglobin 29.1 pg (28.0-33.3); Mean Corpuscular Volume 93.7 fL (83.0-100.0); Mean Platelet Volume 9.5 fL (9.4-12.4); Platelet Count 260 K/mcL (140-400); Red Blood Count 3.33 M/mcL (4.19-5.50); Red Cell Distribution Width 14.9 % (11.5-14.5); White Blood Count 7.1 K/mcL (4.3-11.1)
[2018-10-22] MEDS: Pantoprazole 40 MG VIAL IVP SCH (05:33)
[2018-10-22 05:52] LABS: Calcium 8.8 mg/dL (8.6-10.3); Potassium 4.4 mEq/L (3.5-5.1)
--- NOTE | 2018-10-22 10:11 | Discharge Summary ---
<Max Salinas - Last Filed: 10/22/18 12:46> - NOTES TO OUTPATIENT PROVIDER Notes to Outpatient Provider: Gi bleed secondary to internal hemorrhoids and diverticulosis. Please work with patient of recommended dietary needs. Also patient has chronic issues of constipation which will need to be followed up with. Orders not resulted at time of discharge: Pending orders 10/21/18 18:07 Surgical Pathology [PTH] Routine Date of Encounter: 10/22/18 Time of Encounter: 08:30 - Discharge Diagnosis (1) GI bleed Priority: Primary Status: Suspected Qualifiers: Qualified Code(s): K92.2 - Gastrointestinal hemorrhage, unspecified (2) Asymptomatic bacteriuria Priority: Primary Status: Acute (3) Renal calculus Priority: Secondary Status: Acute (4) Ureteral stent displacement Priority: Secondary Status: Acute Qualifiers: Encounter type: sequela Qualified Code(s): T83.122S - Displacement of indwelling ureteral stent, sequela (5) CKD (chronic kidney disease) stage 4, GFR 15-29 ml/min Priority: Secondary Status: Chronic (6) Bladder cancer Priority: Secondary Status: Chronic Qualifiers: Bladder location: unspecified site Qualified Code(s): C67.9 - Malignant neoplasm of bladder, unspecified (7) Hypertension Priority: Secondary Status: Chronic Qualifiers: Hypertension type: essential hypertension Qualified Code(s): I10 - Essential (primary) hypertension (8) CAD (coronary artery disease) Priority: Secondary Status: Acute Qualifiers: Coronary Disease-Associated Artery/Lesion type: [place] artery [place] vs. transplanted heart: [place] heart Associated angina: without angina Qualified Code(s): I25.10 - Atherosclerotic heart disease of [place] coronary artery without angina pectoris (9) DVT prophylaxis Priority: Primary Status: Acute Hospital course: Mr. Finn is a 87 year old male with a past medical history of bladder papillary urothelial cancer (2000), coronary artery disease, hypertension, CKD stage IV with a PSH of L nephrectomy (2014) that presented today for GI bleed. Has has been complaining of intermittent bright red blood per rectum for the past 2 months. Denies any melena or hematochezia. He says that he had some nausea along with his rectal bleeding which then prompted the nurse to report him to the ER. Denied any emesis, diarrhea, or fever. Denies any recent weight loss. [facility]. He follows urology here at [place]. He recently had a urinal stent replacement back in 08/2018. Upon arrival to the ER patient was afebrile and had a normal heart rate. Blood pressure was 160/75. He did not display any leukocytosis. Hemoglobin level was at 10.7 with his baseline being around 9.5. His creatinine was at 2.54 with a baseline of 2.88. CT showed improved hydroneohrosis of the R kidney since stent placement in 09/12. Non-obstructing calculus in R kidney. Urinalysis revealed moderate blood and a large leukocyte Esterace. Chest x-ray was normal. Stool occult was positive for blood. Prior cultures showed multiple infections with ESBL. Prior sensitivities showed resistance to multiple drugs. Patient was subsequently placed on Zosyn in the ER for which he is sensitive to. Denied any gross hematuria. He admitted to dysuria but the following day was asymptomatic. Antibiotic treatment was subsequently stopped. GI was consulted and patient underwent an EGD/Colonoscopy where it was revealed he had a few popylps, some of which sessile (resected and send for pathology), along with diverticulosis in the sigmoid colon and non-bleeding internal hemorrhoids. Patient was counseled on dietary recommendations which included increased fiber and adequate fluids. Patient will need to follow-up with PCP in the next 3-5 days. He will also need to follow-up with GI in the next week. - Time Spent with Patient Total time spent providing and/or coordinating discharge services: Time spent: Greater than 30 minutes - Discharge Medications Prescriptions: Continued amLODIPine [Norvasc] 5 mg PO DAILY Carvedilol [Coreg] 6.25 mg PO BIDWM Polyethylene Glycol 3350 [MiraLAX] 17 gm PO Q12H PRN PRN Reason: Constipation Ketoconazole 2% CRM [Nizoral Cream] 1 appl TP DAILY PRN MDD FACE PRN Reason: ANTIFUNGAL Sodium Bicarbonate 650 mg PO BID Selenium Sulfide 1 appl TP DAILY PRN PRN Reason: DANDRUFF Pantoprazole Sodium [Protonix] 40 mg PO QAM Vit C/Vit E AC/Lut/Mineral 1 [Prosight with Lutein Capsule] 1 each PO BID Atorvastatin [Lipitor] 40 mg PO HS Ipratropium/Albuterol Neb [Duoneb] 3 ml IH Q4HR PRN PRN Reason: Shortness Of Breath Hydrocortisone 1% CREAM [Cortaid] 1 appl TP DAILY PRN PRN Reason: Itching Nitrofurantoin Monohyd/M-Cryst [Macrobid 100 mg Capsule] 100 mg PO BID Cefuroxime Axetil [Cefuroxime] 250 mg PO BID Lactulose [Enulose] 10 gm PO QAM Magnesium Citrate 296 ml PO DAILY PRN PRN Reason: Constipation Magnesium Sulfate [Epsom Salt] 6.25 gm PO DAILY PRN PRN Reason: Constipation Methyl Salicylate/Menth/Camph [[place] Ultra Strength Cream] 1 appl TP Q12H PRN MDD LOWER BACK PRN Reason: Pain Peg 400/Hypromellose/Glycerin [Visine Tears Drops] 1 drop BOTH EYES Q12H PRN PRN Reason: Dry Eyes Phenyleph/Pramoxin/Glycr/W.pet [Preparation H Cream] 1 appl TP BID PRN PRN Reason: Pain Home Medications: Carvedilol [Coreg] 6.25 mg PO BIDWM 07/22/17 [History] Ketoconazole 2% CRM [Nizoral Cream] 1 appl TP DAILY PRN MDD FACE 07/22/17 [History] Pantoprazole Sodium [Protonix] 40 mg PO QAM 07/22/17 [History] Polyethylene Glycol 3350 [MiraLAX] 17 gm PO Q12H PRN 07/22/17 [History] Selenium Sulfide 1 appl TP DAILY PRN 07/22/17 [History] Sodium Bicarbonate 650 mg PO BID 07/22/17 [History] amLODIPine [Norvasc] 5 mg PO DAILY 07/22/17 [History] Vit C/Vit E AC/Lut/Mineral 1 [Prosight with Lutein Capsule] 1 each PO BID 01/29/18 [History] Atorvastatin [Lipitor] 40 mg PO HS 08/26/18 [History] Cefuroxime Axetil [Cefuroxime] 250 mg PO BID 10/19/18 [History] Hydrocortisone 1% CREAM [Cortaid] 1 appl TP DAILY PRN 10/19/18 [History] Ipratropium/Albuterol Neb [Duoneb] 3 ml IH Q4HR PRN 10/19/18 [History] Lactulose [Enulose] 10 gm PO QAM 10/19/18 [History] Magnesium Citrate 296 ml PO DAILY PRN 10/19/18 [History] Magnesium Sulfate [Epsom Salt] 6.25 gm PO DAILY PRN 10/19/18 [History] Methyl Salicylate/Menth/Camph [[place] Ultra Strength Cream] 1 appl TP Q12H PRN MDD LOWER BACK 10/19/18 [History] Nitrofurantoin Monohyd/M-Cryst [Macrobid 100 mg Capsule] 100 mg PO BID 10/19/18 [History] Peg 400/Hypromellose/Glycerin [Visine Tears Drops] 1 drop BOTH EYES Q12H PRN 10/19/18 [History] Phenyleph/Pramoxin/Glycr/W.pet [Preparation H Cream] 1 appl TP BID PRN 10/19/18 [History] Allergies/Adverse Reactions: Allergy/AdvReac Type Severity Reaction Status Date / Time tuberculin,PPD,multi-puncture Allergy Hives Verified 08/26/18 00:31 Date of admission: 10/19/18 18:52 Primary care physician: PCP NONE Consults: 10/19/18 17:56 Consult to Gastroenterology [CONS] Routine Consulting Provider: [facility] [place] Reason for Consult: BRBPR x 2 months. Call Completed: No Discharging clinician: Max Salinas Anticipated date of discharge: 10/22/18 - Constitutional Vitals: Temp Pulse Resp BP Pulse Ox 98.2 F 65 16 120/70 95 10/22/18 07:30 10/22/18 07:30 10/22/18 07:30 10/22/18 07:30 10/22/18 07:30 Exam: GENERAL APPEARANCE: Well developed, well nourished, alert and cooperative, and appears to be in no acute distress. HEAD: normocephalic. EYES: vision is grossly intact. EARS: hearing grossly intact. NOSE: No nasal discharge. THROAT: Oral cavity and pharynx normal. No inflammation, swelling, exudate, or lesions. NECK: Neck supple, non-tender without lymphadenopathy, masses or thyromegaly. CARDIAC: Normal S1 and S2. No S3, S4 or murmurs. Rhythm is regular. There is no peripheral edema, cyanosis or pallor. Extremities are warm and well perfused. Capillary refill is less than 2 seconds. No carotid bruits. LUNGS: Clear to auscultation and percussion without rales, rhonchi, wheezing or diminished breath sounds. ABDOMEN: Positive bowel sounds. Soft, nondistended, nontender. No guarding or rebound. No masses. MUSKULOSKELETAL: Adequately aligned spine. ROM intact spine and extremities. No joint erythema or tenderness. Normal muscular development. BACK: Examination of the spine reveals normal gait and posture, no spinal deformity, symmetry of spinal muscles, without tenderness, decreased range of motion or muscular spasm. EXTREMITIES: No significant deformity or joint abnormality. No edema. Peripheral pulses intact. No varicosities. LOWER EXTREMITY: Examination of both feet reveals all toes to be normal in size and symmetry, normal range of motion, normal sensation with distal capillary filling of less than 2 seconds without tenderness, swelling, discoloration, nodules, weakness or deformity; NEUROLOGICAL: Action tremors of his UE and head. No resting tremors. SKIN: Skin normal color, texture and turgor with no lesions or eruptions. PSYCHIATRIC: The mental examination revealed the patient was oriented to person, place, and time. - Patient Status Disposition: Transfer SNF Condition: Good Functional capacity at discharge: uses cane/walker Overall status at discharge: patient is progressing back to baseline - Discharge Instructions Instructions: Acute Kidney Injury (DC), Anemia (GEN) Follow Up With: Todd Pearl MD [Partnered Physician] - (Web request sent, please call patient) NONE,PCP [Primary Care Provider] - - Diet and Activity Activity: increase activity as tolerated Diet: other (High fiber. Adequate fluid intake. ) - VTE Documentation of Mechanical Device: Graduated compression elastic hosiery <Sherif Souza - Last Filed: 10/22/18 14:14> Orders not resulted at time of discharge: Pending orders 10/21/18 18:07 Surgical Pathology [PTH] Routine Date of Encounter: 10/22/18 - Discharge Diagnosis (1) Bladder cancer Status: Chronic Qualifiers: Bladder location: unspecified site Qualified Code(s): C67.9 - Malignant neoplasm of bladder, unspecified (2) Hypertension Status: Chronic Qualifiers: Hypertension type: essential hypertension Qualified Code(s): I10 - Essential (primary) hypertension (3) CKD (chronic kidney disease) stage 4, GFR 15-29 ml/min Status: Chronic (4) Rectal bleed Status: Acute (5) Pyelonephritis Status: Acute (6) CAD (coronary artery disease) Status: Acute Qualifiers: Coronary Disease-Associated Artery/Lesion type: [place] artery [place] vs. transplanted heart: [place] heart Associated angina: without angina Qualified Code(s): I25.10 - Atherosclerotic heart disease of [place] coronary artery without angina pectoris Hospital course: Mr. Finn is a 87 year old male - Time Spent with Patient Total time spent providing and/or coordinating discharge services: Date of admission: 10/19/18 18:52 Primary care physician: PCP NONE Consults: 10/19/18 17:56 Consult to Gastroenterology [CONS] Routine Consulting Provider: [facility] [place] Reason for Consult: BRBPR x 2 months. Call Completed: No - Constitutional Vitals: Temp Pulse Resp BP Pulse Ox 98.0 F 71 15 139/72 98 10/22/18 10:28 10/22/18 10:28 10/22/18 10:28 10/22/18 10:28 10/22/18 10:28 - Attending Attestation I examined this patient and my medical decision-making was reviewed with the Resident Physician. I agree with the documented findings, disposition and treatment plan as described except to the extent set forth below. Patient seen and examined at bedside. Patient states that he feels good today. Denies any blood in bowel movement since procedure. On exam his abdomen is soft, nontender with normoactive bowel sounds. Internal hemorrhoids: Hemoglobin stable today, no further evidence of bleeding. Colonoscopy showed internal hemorrhoids that were not bleeding at the time of the procedure however no other obvious source of bleeding so this is likely the patients cause of bleeding. Asymptomatic bacteriuria: Urine culture noted to be positive for Escherichia coli MDRO. Patient denies any urinary tract symptoms. He remains afebrile without leukocytosis. Patient will be discharged back to [facility] in stable condition. Time spent on discharge: 40 minutes
[2018-10-22 10:56] VITALS: BP 139/72
== END 2018-10-22 16:04 | DRG 378 ==
LOC: 3ANU 13:50 → EMEROOARM 13:50 → 3ANU 17:21 → SUATTDRO 18:52
PROVIDERS: ADMIT Internal Medicine Nephrology; ATTEND Internal Medicine

== ENCOUNTER 2019-08-23 17:59 | Observation (INO) ==
[2019-08-23 19:11] LABS: Basophils % 0.3 %; Eosinophils # 0.2 K/mcL (0.0-0.6); Eosinophils % 1.6 %; Hematocrit 31.4 % (37.5-50.1); Hemoglobin 9.9 g/dL (12.9-16.9); Immature Granulocytes % 0.2 % (0-4); Lymphocytes # 2.3 K/mcL (0.6-4.6); Lymphocytes % 25.1 %; Mean Corpuscular HGB Conc 31.5 g/dL (31.6-35.5); Mean Corpuscular Hemoglobin 29.4 pg (28.0-33.3); Mean Corpuscular Volume 93.2 fL (83.0-100.0); Mean Platelet Volume 9.8 fL (9.4-12.4); Monocytes # 0.8 K/mcL (0.0-1.3); Monocytes % 8.9 %; Platelet Count 242 K/mcL (140-400); Red Blood Count 3.37 M/mcL (4.19-5.50); Segmented Neutrophils % 63.9 %; White Blood Count 9.3 K/mcL (4.3-11.1)
[2019-08-23 19:22] LABS: INR 1.1; Prothrombin Time 12.1 Seconds (9.4-12.1)
[2019-08-23 19:25] LABS: Activated Partial Thrombo Time 30.8 Seconds (26.0-36.0)
[2019-08-23 19:31] LABS: Albumin/Globulin Ratio 1.4 (1.1-2.2); Bilirubin,Direct 0.1 mg/dL (0.0-0.2); Bilirubin,Indirect 0.3 mg/dL (0.0-1.0); Bilirubin,Total 0.4 mg/dL (0.3-1.0); Calcium 9.1 mg/dL (8.6-10.3); Globulin 2.9 g/dL (2.4-3.5); Potassium 4.6 mEq/L (3.5-5.1); Total Protein 6.9 g/dL (6.4-8.9)
[2019-08-23 20:00] LABS: Bilirubin,Urine Negative (Negative); Blood,Urine Large (Negative); Clarity,Urine Turbid (Clear); Color,Urine Yellow (Yellow); Glucose,Urine (UA) Normal (Normal); Ketones,Urine Negative (Negative); Leukocyte Esterase,Urine Large (Negative); Nitrite,Urine Negative (Negative); Protein,Urine 100 mg/dL (Neg-Trace); Urobilinogen,Urine Normal (Normal)
[2019-08-23 20:02] LABS: Bacteria,Urine Many per hpf (None-Few); Hyaline Casts,Urine Few per lpf (None-Few); Squamous Epithelial Cell,Urine Many per lpf (None-Few); WBC,Urine TNTC per hpf (0-3)
[2019-08-23 20:13] LABS: RBC,Urine TNTC per hpf (0-3)
[2019-08-23] MEDS ORDERED: cefTRIAXone 1,000 MG in Water for inj. (sterile) 10 ML IVP ONE (20:14)
[2019-08-23] MEDS ORDERED: Naloxone 0.4 MG/ML INJ IVP PRN (23:21)
[2019-08-23] MEDS ORDERED: Ondansetron ODT 4 MG TAB.RAPDIS SL PRN (23:21)
[2019-08-23] MEDS ORDERED: VISINE TEARS DROPS 15 ML 1 DROP BOTTLE BOTH EYES PRN (23:25)
[2019-08-23] MEDS ORDERED: Methyl Salicylate/Menthol 57 APPL/57 GM TUBE TP PRN (23:25)
[2019-08-24] MEDS ORDERED: Acetaminophen 325 MG TABLET PO PRN
[2019-08-24] MEDS ORDERED: Ipratropium/Albuterol Neb 3 ML IH SCH
[2019-08-24] MEDS ORDERED: Ipratropium/Albuterol Neb 3 ML ONE (03:45)
[2019-08-24] MEDS ORDERED: *HR* Heparin 5,000 UNIT/ML VIAL SQ SCH (06:00)
[2019-08-24] MEDS ORDERED: 0.9 % Sodium Chloride 500 ML ONE ×2 (07:57→08:22)
[2019-08-24] MEDS ORDERED: carvediloL 6.25 MG TABLET PO SCH (08:00)
[2019-08-24] MEDS ORDERED: *HR* FentaNYL (PF) 100 MCG/2 ML VIAL IVP ONE (08:11)
[2019-08-24] MEDS ORDERED: *HR* Midazolam HCl 2 MG/2 ML VIAL IVP ONE (08:11)
[2019-08-24] MEDS ORDERED: Isovue-300 50ML VIAL IVP ONE (08:30)
[2019-08-24] MEDS ORDERED: amLODIPine 5 MG TABLET PO SCH ×2 (09:00)
[2019-08-24] MEDS ORDERED: Cholecalciferol (D-3) 1,000 UNIT (25MCG) TABLET PO SCH (09:00)
[2019-08-24 09:45] LABS: Hematocrit 32.8 % (37.5-50.1); Hemoglobin 10.2 g/dL (12.9-16.9); Mean Corpuscular HGB Conc 31.1 g/dL (31.6-35.5); Mean Corpuscular Hemoglobin 28.8 pg (28.0-33.3); Mean Corpuscular Volume 92.7 fL (83.0-100.0); Mean Platelet Volume 9.5 fL (9.4-12.4); Platelet Count 239 K/mcL (140-400); Red Blood Count 3.54 M/mcL (4.19-5.50); Red Cell Distribution Width 14.9 % (11.5-14.5); White Blood Count 6.6 K/mcL (4.3-11.1)
[2019-08-24 09:49] LABS: INR 1.2; Prothrombin Time 13.3 Seconds (9.4-12.1)
[2019-08-24 10:04] LABS: Calcium 9.3 mg/dL (8.6-10.3); Potassium 4.6 mEq/L (3.5-5.1)
[2019-08-24 10:50] VITALS: BP 123/64
[2019-08-24] MEDS ORDERED: Methyl Salicylate/Menthol 57 APPL/57 GM TUBE TP SCH (21:00)
== END 2019-08-24 12:13 ==
LOC: EMEROOARM 17:59 → 3BNU 17:59 → SUATTDRO 20:58 → 3BNU 21:34
PROVIDERS: ADMIT Family Medicine; ATTEND Internal Medicine

== ENCOUNTER 2019-11-13 20:54 | Inpatient (IN) ==
[2019-11-13] MEDS ORDERED: 0.9 % Sodium Chloride 1,000 ML IVC ONE (21:13)
[2019-11-13 21:45] LABS: Basophils % 0.2 %; Eosinophils # 0.2 K/mcL (0.0-0.6); Eosinophils % 2.2 %; Hematocrit 29.9 % (37.5-50.1); Hemoglobin 9.6 g/dL (12.9-16.9); Immature Granulocytes % 0.2 % (0-4); Lymphocytes # 1.3 K/mcL (0.6-4.6); Lymphocytes % 16.1 %; Mean Corpuscular HGB Conc 32.1 g/dL (31.6-35.5); Mean Corpuscular Volume 90.3 fL (83.0-100.0); Mean Platelet Volume 9.2 fL (9.4-12.4); Monocytes # 0.8 K/mcL (0.0-1.3); Monocytes % 9.5 %; Neutrophils # 5.9 K/mcL (1.6-8.9); Platelet Count 267 K/mcL (140-400); Red Blood Count 3.31 M/mcL (4.19-5.50); Segmented Neutrophils % 71.8 %; White Blood Count 8.2 K/mcL (4.3-11.1)
[2019-11-13 21:52] LABS: INR 1.2; Prothrombin Time 13.2 Seconds (9.4-12.1)
[2019-11-13 21:55] LABS: Activated Partial Thrombo Time 33.8 Seconds (26.0-36.0)
[2019-11-13 22:10] LABS: Alanine Aminotransferase 12 Units/L (7-52); Albumin 3.7 g/dL (3.5-5.7); Albumin/Globulin Ratio 1.2 (1.1-2.2); Alkaline Phosphatase 76 Units/L (34-104); Aspartate Amino Transferase 15 Units/L (13-39); BUN/Creatinine Ratio 12 (6-26); Bilirubin,Direct 0.1 mg/dL (0.0-0.2); Bilirubin,Indirect 0.2 mg/dL (0.0-1.0); Bilirubin,Total 0.3 mg/dL (0.3-1.0); Blood Urea Nitrogen 41 mg/dL (8-23); Calcium 8.8 mg/dL (8.6-10.3); Carbon Dioxide 19 mEq/L (23-29); Chloride 109 mEq/L (98-107); Globulin 3.1 g/dL (2.4-3.5); Glucose 110 mg/dL (70-105); Lipase 40 Units/L (11-82); Osmolality,Calculated 295 (280-300); Potassium 4.4 mEq/L (3.5-5.1); Sodium 137 mEq/L (136-145); Total Protein 6.8 g/dL (6.4-8.9); Troponin I < 0.03 ng/mL (< 0.04); eGFR For African Americans 20 (> 60); eGFR For Non-African Americans 17 (> 60)
[2019-11-13] MEDS ORDERED: cefTRIAXone 1,000 MG in Water for inj. (sterile) 10 ML IVP ONE (22:40)
[2019-11-13] MEDS ORDERED: Azithromycin 500 MG in 0.9 % Sodium Chloride 250 ML IVPB ONE (22:40)
[2019-11-13 23:01] LABS: Bilirubin,Urine Negative (Negative); Blood,Urine Trace (Negative); Clarity,Urine Turbid (Clear); Color,Urine Light-Yellow (Yellow); Glucose,Urine (UA) Normal (Normal); Ketones,Urine Negative (Negative); Leukocyte Esterase,Urine Large (Negative); Nitrite,Urine Negative (Negative); PH,Urine 6.5 pH Units (5.0-8.0); Protein,Urine 100 mg/dL (Neg-Trace); Specific Gravity,Urine 1.012 (1.010-1.025); Urobilinogen,Urine Normal (Normal)
[2019-11-13 23:05] LABS: RBC,Urine Present per hpf (0-3); Renal Epithelial Cells,Urine Present per hpf (None-Few); Squamous Epithelial Cell,Urine Present per hpf (None-Few); WBC,Urine TNTC per hpf (0-3)
[2019-11-13 23:06] LABS: Bacteria,Urine Present per hpf (None-Few)
[2019-11-13 23:10] LABS: Bilirubin,Urine Negative (Negative); Blood,Urine Moderate (Negative); Clarity,Urine Turbid (Clear); Color,Urine Light-Red (Yellow); Glucose,Urine (UA) Normal (Normal); Ketones,Urine Negative (Negative); Leukocyte Esterase,Urine Large (Negative); Nitrite,Urine Negative (Negative); Protein,Urine >=300 mg/dL (Neg-Trace); Specific Gravity,Urine 1.012 (1.010-1.025); Urobilinogen,Urine Normal (Normal)
[2019-11-13 23:13] LABS: Squamous Epithelial Cell,Urine Present per hpf (None-Few); WBC,Urine TNTC per hpf (0-3)
[2019-11-13 23:14] LABS: Bacteria,Urine Present per hpf (None-Few); RBC,Urine 50-100 per hpf (0-3); Renal Epithelial Cells,Urine Present per hpf (None-Few)
[2019-11-13] MEDS ORDERED: Naloxone 0.4 MG/ML INJ IVP PRN (23:47)
[2019-11-14] MEDS ORDERED: Ondansetron 4 MG/2 ML VIAL IVP PRN (00:28)
[2019-11-14 01:18] LABS: Adenovirus Not Detected (Not Detect); Coronavirus 229E Not Detected (Not Detect); Coronavirus HKU1 Not Detected (Not Detect); Coronavirus NL63 Not Detected (Not Detect); Coronavirus OC43 Not Detected (Not Detect)
[2019-11-14 01:21] LABS: Bordetella Pertussis Not Detected (Not Detect); Chlamydophila pneumoniae Not Detected (Not Detect); Human Metapneumovirus Not Detected (Not Detect); Human Rhinovirus/Enterovirus Not Detected (Not Detect); Influenza A Subtype 2009 H1 Not Detected (Not Detect); Influenza B Not Detected (Not Detect); Mycoplasma pneumoniae Not Detected (Not Detect); Parainfluenza Virus 1 Not Detected (Not Detect); Parainfluenza Virus 2 Not Detected (Not Detect); Parainfluenza Virus 3 Not Detected (Not Detect); Parainfluenza Virus 4 Not Detected (Not Detect); Respiratory Syncytial Virus Not Detected (Not Detect)
[2019-11-14] MEDS ORDERED: Ertapenem 1,000 MG in 0.9 % Sodium Chloride Mini Bag 100 ML IVPB SCH (02:00)
[2019-11-14 05:24] LABS: Basophils % 0.3 %; Eosinophils # 0.2 K/mcL (0.0-0.6); Eosinophils % 2.5 %; Hematocrit 29.2 % (37.5-50.1); Hemoglobin 9.3 g/dL (12.9-16.9); Immature Granulocytes % 0.6 % (0-4); Lymphocytes # 1.6 K/mcL (0.6-4.6); Lymphocytes % 22.4 %; Mean Corpuscular HGB Conc 31.8 g/dL (31.6-35.5); Mean Corpuscular Hemoglobin 28.5 pg (28.0-33.3); Mean Corpuscular Volume 89.6 fL (83.0-100.0); Monocytes % 13.7 %; Neutrophils # 4.3 K/mcL (1.6-8.9); Platelet Count 229 K/mcL (140-400); Red Blood Count 3.26 M/mcL (4.19-5.50); Segmented Neutrophils % 60.5 %; White Blood Count 7.1 K/mcL (4.3-11.1)
[2019-11-14] MEDS: *HR* Heparin 5,000 UNIT/ML VIAL SQ SCH ×3 (06:04→22:28)
[2019-11-14 06:17] LABS: Albumin 3.4 g/dL (3.5-5.7); Albumin/Globulin Ratio 1.2 (1.1-2.2); Bilirubin,Total 0.3 mg/dL (0.3-1.0); Calcium 8.7 mg/dL (8.6-10.3); Globulin 2.8 g/dL (2.4-3.5); Potassium 4.9 mEq/L (3.5-5.1); Total Protein 6.2 g/dL (6.4-8.9)
[2019-11-14] MEDS ORDERED: polyethylene glycoL 3350 17 GM POWD.PACK PO PRN (07:40)
[2019-11-14] MEDS ORDERED: GuaiFENesin Liq 200 MG/10 ML UDC PO PRN (07:40)
[2019-11-14] MEDS: Cholecalciferol (D-3) 1,000 UNIT (25MCG) TABLET PO SCH (08:34)
[2019-11-14] MEDS: Lactulose Oral Soln 20 GM/30 ML UDC PO SCH (08:34)
[2019-11-14] MEDS: carvediloL 6.25 MG TABLET PO SCH ×2 (08:35→15:36)
[2019-11-15 05:09] LABS: Basophils % 0.1 %; Eosinophils # 0.1 K/mcL (0.0-0.6); Eosinophils % 1.5 %; Hematocrit 30.1 % (37.5-50.1); Hemoglobin 9.5 g/dL (12.9-16.9); Immature Granulocytes % 0.1 % (0-4); Lymphocytes # 1.7 K/mcL (0.6-4.6); Lymphocytes % 21.2 %; Mean Corpuscular HGB Conc 31.6 g/dL (31.6-35.5); Mean Corpuscular Volume 91.8 fL (83.0-100.0); Mean Platelet Volume 9.1 fL (9.4-12.4); Monocytes # 0.9 K/mcL (0.0-1.3); Monocytes % 11.6 %; Neutrophils # 5.1 K/mcL (1.6-8.9); Platelet Count 239 K/mcL (140-400); Red Blood Count 3.28 M/mcL (4.19-5.50); Segmented Neutrophils % 65.5 %; White Blood Count 7.8 K/mcL (4.3-11.1)
[2019-11-15 05:28] LABS: Albumin 3.5 g/dL (3.5-5.7); Albumin/Globulin Ratio 1.3 (1.1-2.2); Bilirubin,Total 0.4 mg/dL (0.3-1.0); Calcium 8.7 mg/dL (8.6-10.3); Globulin 2.8 g/dL (2.4-3.5); Potassium 4.6 mEq/L (3.5-5.1); Total Protein 6.3 g/dL (6.4-8.9)
[2019-11-15] MEDS: *HR* Heparin 5,000 UNIT/ML VIAL SQ SCH ×3 (05:55→21:01)
[2019-11-15] MEDS ORDERED: Ertapenem 500 MG in 0.9 % Sodium Chloride Mini Bag 100 ML IVPB SCH (09:00)
[2019-11-15] MEDS: carvediloL 6.25 MG TABLET PO SCH ×2 (09:11→16:47)
[2019-11-15] MEDS: Cholecalciferol (D-3) 1,000 UNIT (25MCG) TABLET PO SCH (09:17)
[2019-11-15] MEDS: Lactulose Oral Soln 20 GM/30 ML UDC PO SCH (09:17)
[2019-11-16 05:29] LABS: Basophils % 0.2 %; Eosinophils % 0.4 %; Hematocrit 32.8 % (37.5-50.1); Hemoglobin 10.1 g/dL (12.9-16.9); Immature Granulocytes % 0.2 % (0-4); Lymphocytes # 1.4 K/mcL (0.6-4.6); Lymphocytes % 17.9 %; Mean Corpuscular HGB Conc 30.8 g/dL (31.6-35.5); Mean Corpuscular Hemoglobin 29.9 pg (28.0-33.3); Mean Platelet Volume 9.8 fL (9.4-12.4); Monocytes # 0.9 K/mcL (0.0-1.3); Monocytes % 10.6 %; Neutrophils # 5.7 K/mcL (1.6-8.9); Platelet Count 218 K/mcL (140-400); Red Blood Count 3.38 M/mcL (4.19-5.50); Red Cell Distribution Width 14.1 % (11.5-14.5); Segmented Neutrophils % 70.7 %
[2019-11-16] MEDS: *HR* Heparin 5,000 UNIT/ML VIAL SQ SCH ×3 (05:29→20:45)
[2019-11-16 05:53] LABS: Albumin 3.7 g/dL (3.5-5.7); Albumin/Globulin Ratio 1.2 (1.1-2.2); Bilirubin,Total 0.4 mg/dL (0.3-1.0); Calcium 8.7 mg/dL (8.6-10.3); Potassium 4.9 mEq/L (3.5-5.1); Total Protein 6.7 g/dL (6.4-8.9)
[2019-11-16] MEDS: carvediloL 6.25 MG TABLET PO SCH ×2 (06:49→15:19)
[2019-11-16] MEDS: Lactulose Oral Soln 20 GM/30 ML UDC PO SCH (08:25)
[2019-11-16] MEDS: Cholecalciferol (D-3) 1,000 UNIT (25MCG) TABLET PO SCH (08:25)
[2019-11-16] MEDS ORDERED: cefTRIAXone 2,000 MG in 0.9 % Sodium Chloride Mini Bag 100 ML IVPB SCH (10:00)
[2019-11-17] MEDS: *HR* Heparin 5,000 UNIT/ML VIAL SQ SCH ×3 (06:12→22:20)
[2019-11-17] MEDS: Cholecalciferol (D-3) 1,000 UNIT (25MCG) TABLET PO SCH (08:34)
[2019-11-17] MEDS: carvediloL 6.25 MG TABLET PO SCH ×2 (08:34→16:42)
[2019-11-17] MEDS: Lactulose Oral Soln 20 GM/30 ML UDC PO SCH (08:34)
[2019-11-17] MEDS: cefTRIAXone 2,000 MG in Water for inj. (sterile) 10 ML IVP SCH (08:35)
[2019-11-18] MEDS: *HR* Heparin 5,000 UNIT/ML VIAL SQ SCH ×3 (05:12→21:26)
[2019-11-18 06:14] LABS: Hemoglobin 9.5 g/dL (12.9-16.9); Mean Corpuscular HGB Conc 31.7 g/dL (31.6-35.5); Mean Corpuscular Hemoglobin 28.9 pg (28.0-33.3); Mean Corpuscular Volume 91.2 fL (83.0-100.0); Mean Platelet Volume 9.5 fL (9.4-12.4); Platelet Count 226 K/mcL (140-400); Red Blood Count 3.29 M/mcL (4.19-5.50); White Blood Count 8.3 K/mcL (4.3-11.1)
[2019-11-18 06:34] LABS: Calcium 8.4 mg/dL (8.6-10.3); Magnesium 1.9 mg/dL (1.6-2.6); Potassium 4.4 mEq/L (3.5-5.1)
[2019-11-18] MEDS: Cholecalciferol (D-3) 1,000 UNIT (25MCG) TABLET PO SCH (08:55)
[2019-11-18] MEDS: carvediloL 6.25 MG TABLET PO SCH ×2 (08:55→16:42)
[2019-11-18] MEDS: cefTRIAXone 2,000 MG in Water for inj. (sterile) 10 ML IVP SCH (08:56)
[2019-11-18] MEDS: Lactulose Oral Soln 20 GM/30 ML UDC PO SCH (08:56)
[2019-11-19] MEDS: Acetaminophen 325 MG TABLET PO PRN ×2 (01:09→20:11)
[2019-11-19] MEDS: *HR* Heparin 5,000 UNIT/ML VIAL SQ SCH ×3 (05:34→20:10)
[2019-11-19] MEDS: Lactulose Oral Soln 20 GM/30 ML UDC PO SCH (09:08)
[2019-11-19] MEDS: carvediloL 6.25 MG TABLET PO SCH ×2 (09:08→17:27)
[2019-11-19] MEDS: Cholecalciferol (D-3) 1,000 UNIT (25MCG) TABLET PO SCH (09:08)
[2019-11-19] MEDS: cefTRIAXone 2,000 MG in Water for inj. (sterile) 10 ML IVP SCH (09:09)
[2019-11-20] MEDS: *HR* Heparin 5,000 UNIT/ML VIAL SQ SCH ×3 (05:59→20:16)
[2019-11-20] MEDS ORDERED: cefTRIAXone 2,000 MG in Water for inj. (sterile) 20 ML IVP SCH (09:00)
[2019-11-20] MEDS: Cholecalciferol (D-3) 1,000 UNIT (25MCG) TABLET PO SCH (09:17)
[2019-11-20] MEDS: carvediloL 6.25 MG TABLET PO SCH ×2 (09:17→17:06)
[2019-11-20] MEDS: Lactulose Oral Soln 20 GM/30 ML UDC PO SCH (09:18)
[2019-11-20 09:43] LABS: Hematocrit 31.1 % (37.5-50.1); Hemoglobin 9.8 g/dL (12.9-16.9); Mean Corpuscular HGB Conc 31.5 g/dL (31.6-35.5); Mean Corpuscular Hemoglobin 28.9 pg (28.0-33.3); Mean Corpuscular Volume 91.7 fL (83.0-100.0); Mean Platelet Volume 10.1 fL (9.4-12.4); Platelet Count 267 K/mcL (140-400); Red Blood Count 3.39 M/mcL (4.19-5.50); Red Cell Distribution Width 13.8 % (11.5-14.5); White Blood Count 8.3 K/mcL (4.3-11.1)
[2019-11-20 09:47] LABS: INR 1.2; Prothrombin Time 13.8 Seconds (9.4-12.1)
[2019-11-20 10:01] LABS: Calcium 8.9 mg/dL (8.6-10.3); Magnesium 2.1 mg/dL (1.6-2.6); Potassium 4.3 mEq/L (3.5-5.1)
[2019-11-20] MEDS: Acetaminophen 325 MG TABLET PO PRN (20:28)
[2019-11-21] MEDS: *HR* Heparin 5,000 UNIT/ML VIAL SQ SCH ×3 (04:27→20:54)
[2019-11-21] MEDS: Acetaminophen 325 MG TABLET PO PRN ×2 (04:44→14:23)
[2019-11-21 08:56] LABS: Hematocrit 32.6 % (37.5-50.1); Hemoglobin 10.1 g/dL (12.9-16.9); Mean Corpuscular Hemoglobin 28.5 pg (28.0-33.3); Mean Corpuscular Volume 92.1 fL (83.0-100.0); Mean Platelet Volume 10.2 fL (9.4-12.4); Platelet Count 271 K/mcL (140-400); Red Blood Count 3.54 M/mcL (4.19-5.50); Red Cell Distribution Width 13.7 % (11.5-14.5)
[2019-11-21 09:17] LABS: Calcium 8.9 mg/dL (8.6-10.3); Potassium 4.6 mEq/L (3.5-5.1)
[2019-11-21] MEDS: carvediloL 6.25 MG TABLET PO SCH ×2 (09:36→17:34)
[2019-11-21] MEDS: Lactulose Oral Soln 20 GM/30 ML UDC PO SCH (09:36)
[2019-11-21] MEDS: Cholecalciferol (D-3) 1,000 UNIT (25MCG) TABLET PO SCH (09:36)
[2019-11-21] MEDS ORDERED: Dexamethasone 4 MG/ML VIAL IVP SCH (14:30)
[2019-11-21] MEDS: Dexamethasone 4 MG/ML VIAL IVP SCH (15:52)
[2019-11-21] MEDS: Ketoconazole 2% CRM 15 GM TUBE TP PRN (15:53)
[2019-11-21] MEDS: Piperacillin/Tazobactam 3.375 GM in 0.9 % Sodium Chloride Mini Bag 100 ML IVPB SCH (17:34)
[2019-11-21] MEDS: cefTRIAXone 2,000 MG in Water for inj. (sterile) 10 ML IVP SCH (19:29)
[2019-11-21] MEDS: Doxycycline 100 MG CAPSULE PO SCH (20:54)
[2019-11-22] MEDS: *HR* Heparin 5,000 UNIT/ML VIAL SQ SCH ×3 (05:49→19:39)
[2019-11-22] MEDS: Piperacillin/Tazobactam 3.375 GM in 0.9 % Sodium Chloride Mini Bag 100 ML IVPB SCH ×2 (05:50→16:45)
[2019-11-22 05:59] LABS: Hematocrit 32.4 % (37.5-50.1); Hemoglobin 9.9 g/dL (12.9-16.9); Mean Corpuscular HGB Conc 30.6 g/dL (31.6-35.5); Mean Corpuscular Hemoglobin 28.5 pg (28.0-33.3); Mean Corpuscular Volume 93.4 fL (83.0-100.0); Mean Platelet Volume 10.2 fL (9.4-12.4); Platelet Count 315 K/mcL (140-400); Red Blood Count 3.47 M/mcL (4.19-5.50); Red Cell Distribution Width 13.7 % (11.5-14.5); White Blood Count 10.9 K/mcL (4.3-11.1)
[2019-11-22 06:18] LABS: INR 1.3; Prothrombin Time 15.3 Seconds (9.4-12.1)
[2019-11-22 06:24] LABS: Magnesium 2.3 mg/dL (1.6-2.6); Potassium 4.9 mEq/L (3.5-5.1)
[2019-11-22] MEDS: carvediloL 6.25 MG TABLET PO SCH ×2 (08:06→16:45)
[2019-11-22] MEDS: Doxycycline 100 MG CAPSULE PO SCH ×2 (08:06→19:38)
[2019-11-22] MEDS: Lactulose Oral Soln 20 GM/30 ML UDC PO SCH (08:06)
[2019-11-22] MEDS: Cholecalciferol (D-3) 1,000 UNIT (25MCG) TABLET PO SCH (08:07)
[2019-11-22] MEDS: Dexamethasone 4 MG/ML VIAL IVP SCH (08:07)
[2019-11-22] MEDS: Ketoconazole 2% CRM 15 GM TUBE TP PRN (14:38)
[2019-11-23 03:29] LABS: Hematocrit 30.3 % (37.5-50.1); Hemoglobin 9.3 g/dL (12.9-16.9); Mean Corpuscular HGB Conc 30.7 g/dL (31.6-35.5); Mean Corpuscular Hemoglobin 28.2 pg (28.0-33.3); Mean Corpuscular Volume 91.8 fL (83.0-100.0); Mean Platelet Volume 10.5 fL (9.4-12.4); Platelet Count 341 K/mcL (140-400); Red Cell Distribution Width 13.9 % (11.5-14.5); White Blood Count 14.5 K/mcL (4.3-11.1)
[2019-11-23 03:47] LABS: Calcium 8.8 mg/dL (8.6-10.3); Potassium 4.8 mEq/L (3.5-5.1)
[2019-11-23] MEDS: Piperacillin/Tazobactam 3.375 GM in 0.9 % Sodium Chloride Mini Bag 100 ML IVPB SCH ×2 (06:15→18:42)
[2019-11-23] MEDS: *HR* Heparin 5,000 UNIT/ML VIAL SQ SCH ×3 (06:16→20:20)
[2019-11-23] MEDS: Doxycycline 100 MG CAPSULE PO SCH ×2 (08:06→20:20)
[2019-11-23] MEDS: Cholecalciferol (D-3) 1,000 UNIT (25MCG) TABLET PO SCH (08:06)
[2019-11-23] MEDS: carvediloL 6.25 MG TABLET PO SCH ×2 (08:07→18:42)
[2019-11-23] MEDS: Dexamethasone 4 MG/ML VIAL IVP SCH (08:07)
[2019-11-23] MEDS: Lactulose Oral Soln 20 GM/30 ML UDC PO SCH (08:07)
[2019-11-23] MEDS: Ipratropium 1 PUFF INHALER IH SCH ×4 (11:10→23:11)
[2019-11-23] MEDS ORDERED: 0.9 % Sodium Chloride 250 ML ONE ×2 (11:20→23:24)
[2019-11-24] MEDS: Ipratropium 1 PUFF INHALER IH SCH ×6 (03:48→23:42)
[2019-11-24] MEDS: *HR* Heparin 5,000 UNIT/ML VIAL SQ SCH ×3 (05:22→21:05)
[2019-11-24] MEDS: Piperacillin/Tazobactam 3.375 GM in 0.9 % Sodium Chloride Mini Bag 100 ML IVPB SCH ×2 (05:23→16:49)
[2019-11-24 05:33] LABS: Hematocrit 27.8 % (37.5-50.1); Hemoglobin 8.7 g/dL (12.9-16.9); Mean Corpuscular HGB Conc 31.3 g/dL (31.6-35.5); Mean Corpuscular Hemoglobin 28.9 pg (28.0-33.3); Mean Corpuscular Volume 92.4 fL (83.0-100.0); Mean Platelet Volume 10.6 fL (9.4-12.4); Platelet Count 331 K/mcL (140-400); Red Blood Count 3.01 M/mcL (4.19-5.50); Red Cell Distribution Width 14.1 % (11.5-14.5); White Blood Count 11.1 K/mcL (4.3-11.1)
[2019-11-24 05:50] LABS: Calcium 8.8 mg/dL (8.6-10.3); Potassium 4.9 mEq/L (3.5-5.1)
[2019-11-24] MEDS: Doxycycline 100 MG CAPSULE PO SCH ×2 (08:42→21:06)
[2019-11-24] MEDS: carvediloL 6.25 MG TABLET PO SCH ×2 (08:42→16:49)
[2019-11-24] MEDS: Dexamethasone 4 MG/ML VIAL IVP SCH (08:42)
[2019-11-24] MEDS: Cholecalciferol (D-3) 1,000 UNIT (25MCG) TABLET PO SCH (08:42)
[2019-11-24] MEDS: Lactulose Oral Soln 20 GM/30 ML UDC PO SCH (08:43)
[2019-11-24] MEDS: Albumin 25% 25gram/100mL 25 GM/100 ML IV.SOLN IVPB SCH ×2 (09:47→21:06)
[2019-11-24] MEDS: Furosemide 20 MG/2 ML VIAL IVP SCH ×2 (13:08→21:06)
[2019-11-25] MEDS: Ipratropium 1 PUFF INHALER IH SCH ×6 (03:20→23:54)
[2019-11-25] MEDS: Piperacillin/Tazobactam 3.375 GM in 0.9 % Sodium Chloride Mini Bag 100 ML IVPB SCH ×2 (05:37→18:47)
[2019-11-25] MEDS: *HR* Heparin 5,000 UNIT/ML VIAL SQ SCH ×4 (05:38→20:10)
[2019-11-25] MEDS: Cholecalciferol (D-3) 1,000 UNIT (25MCG) TABLET PO SCH (09:07)
[2019-11-25] MEDS: Furosemide 20 MG/2 ML VIAL IVP SCH ×2 (09:08→22:55)
[2019-11-25] MEDS: Doxycycline 100 MG CAPSULE PO SCH ×2 (09:08→20:10)
[2019-11-25] MEDS: Lactulose Oral Soln 20 GM/30 ML UDC PO SCH (09:08)
[2019-11-25] MEDS: carvediloL 6.25 MG TABLET PO SCH (09:08)
[2019-11-25] MEDS: Albumin 25% 25gram/100mL 25 GM/100 ML IV.SOLN IVPB SCH (09:09)
[2019-11-25] MEDS: Dexamethasone 4 MG/ML VIAL IVP SCH (09:14)
[2019-11-25] MEDS ORDERED: *HR* FentaNYL (PF) 100 MCG/2 ML VIAL IVP PRN (15:42)
[2019-11-25] MEDS ORDERED: *HR* LORazepam 2 MG/ML VIAL IVP PRN (15:42)
[2019-11-25] MEDS ORDERED: Atropine Sulfate 1% 40 DROP/2 ML BOTTLE SL PRN (15:42)
[2019-11-25] MEDS ORDERED: Albumin 25% 25gram/100mL 25 GM/100 ML IV.SOLN IVPB SCH (20:30)
[2019-11-26] MEDS: Ipratropium 1 PUFF INHALER IH SCH ×5 (03:39→19:58)
[2019-11-26] MEDS: Piperacillin/Tazobactam 3.375 GM in 0.9 % Sodium Chloride Mini Bag 100 ML IVPB SCH ×2 (05:10→17:13)
[2019-11-26] MEDS: *HR* Heparin 5,000 UNIT/ML VIAL SQ SCH ×3 (05:11→20:50)
[2019-11-26 05:25] LABS: Calcium 10.1 mg/dL (8.6-10.3); Potassium 4.8 mEq/L (3.5-5.1)
[2019-11-26] MEDS ORDERED: D5% in Water 1,000 ML IVC SCH (07:30)
[2019-11-26] MEDS: Cholecalciferol (D-3) 1,000 UNIT (25MCG) TABLET PO SCH (08:16)
[2019-11-26] MEDS: Doxycycline 100 MG CAPSULE PO SCH ×2 (08:16→20:51)
[2019-11-26] MEDS: Lactulose Oral Soln 20 GM/30 ML UDC PO SCH (08:16)
[2019-11-26] MEDS: Dexamethasone 4 MG/ML VIAL IVP SCH (08:17)
[2019-11-26 15:39] LABS: Calcium 9.7 mg/dL (8.6-10.3)
[2019-11-27] MEDS: Ipratropium 1 PUFF INHALER IH SCH ×7 (00:08→23:41)
[2019-11-27] MEDS: *HR* Heparin 5,000 UNIT/ML VIAL SQ SCH ×2 (06:14→14:44)
[2019-11-27] MEDS: Piperacillin/Tazobactam 3.375 GM in 0.9 % Sodium Chloride Mini Bag 100 ML IVPB SCH ×2 (06:14→17:23)
[2019-11-27] MEDS: Cholecalciferol (D-3) 1,000 UNIT (25MCG) TABLET PO SCH (09:32)
[2019-11-27] MEDS: Dexamethasone 4 MG/ML VIAL IVP SCH (09:33)
[2019-11-27] MEDS: Doxycycline 100 MG CAPSULE PO SCH ×2 (09:33→19:44)
[2019-11-27] MEDS: Lactulose Oral Soln 20 GM/30 ML UDC PO SCH (09:34)
[2019-11-27] MEDS: Acetaminophen 325 MG TABLET PO PRN (20:17)
[2019-11-28] MEDS: Ipratropium 1 PUFF INHALER IH SCH ×6 (03:16→23:32)
[2019-11-28] MEDS: Piperacillin/Tazobactam 3.375 GM in 0.9 % Sodium Chloride Mini Bag 100 ML IVPB SCH ×2 (05:50→17:43)
[2019-11-28] MEDS: *HR* Heparin 5,000 UNIT/ML VIAL SQ SCH ×4 (05:50→19:31)
[2019-11-28 06:22] LABS: Hemoglobin 10.1 g/dL (12.9-16.9); Mean Corpuscular HGB Conc 31.6 g/dL (31.6-35.5); Mean Corpuscular Hemoglobin 29.5 pg (28.0-33.3); Mean Corpuscular Volume 93.6 fL (83.0-100.0); Mean Platelet Volume 10.5 fL (9.4-12.4); Platelet Count 339 K/mcL (140-400); Red Blood Count 3.42 M/mcL (4.19-5.50); Red Cell Distribution Width 14.1 % (11.5-14.5); White Blood Count 12.3 K/mcL (4.3-11.1)
[2019-11-28 06:46] LABS: Calcium 9.5 mg/dL (8.6-10.3)
[2019-11-28] MEDS: Doxycycline 100 MG CAPSULE PO SCH (09:24)
[2019-11-28] MEDS: Dexamethasone 4 MG/ML VIAL IVP SCH (09:24)
[2019-11-28] MEDS: Cholecalciferol (D-3) 1,000 UNIT (25MCG) TABLET PO SCH (09:24)
[2019-11-28] MEDS: Lactulose Oral Soln 20 GM/30 ML UDC PO SCH (09:25)
[2019-11-29] MEDS: Ipratropium 1 PUFF INHALER IH SCH ×6 (03:12→23:48)
[2019-11-29] MEDS: *HR* Heparin 5,000 UNIT/ML VIAL SQ SCH ×3 (05:09→22:47)
[2019-11-29] MEDS: Piperacillin/Tazobactam 3.375 GM in 0.9 % Sodium Chloride Mini Bag 100 ML IVPB SCH ×2 (05:10→18:34)
[2019-11-29] MEDS: Dexamethasone 4 MG/ML VIAL IVP SCH (09:02)
[2019-11-29] MEDS: Cholecalciferol (D-3) 1,000 UNIT (25MCG) TABLET PO SCH (09:03)
[2019-11-29] MEDS: Lactulose Oral Soln 20 GM/30 ML UDC PO SCH (09:03)
[2019-11-30] MEDS: Ipratropium 1 PUFF INHALER IH SCH ×6 (03:27→23:41)
[2019-11-30 04:17] LABS: Hematocrit 30.8 % (37.5-50.1); Hemoglobin 9.6 g/dL (12.9-16.9); Mean Corpuscular HGB Conc 31.2 g/dL (31.6-35.5); Mean Corpuscular Hemoglobin 29.2 pg (28.0-33.3); Mean Corpuscular Volume 93.6 fL (83.0-100.0); Mean Platelet Volume 10.7 fL (9.4-12.4); Platelet Count 319 K/mcL (140-400); Red Blood Count 3.29 M/mcL (4.19-5.50); Red Cell Distribution Width 14.1 % (11.5-14.5)
[2019-11-30 04:37] LABS: Calcium 9.5 mg/dL (8.6-10.3); Potassium 4.9 mEq/L (3.5-5.1)
[2019-11-30] MEDS: *HR* Heparin 5,000 UNIT/ML VIAL SQ SCH ×3 (05:33→20:16)
[2019-11-30] MEDS: Piperacillin/Tazobactam 3.375 GM in 0.9 % Sodium Chloride Mini Bag 100 ML IVPB SCH ×2 (05:33→17:30)
[2019-11-30] MEDS: Lactulose Oral Soln 20 GM/30 ML UDC PO SCH (09:45)
[2019-11-30] MEDS: Dexamethasone 4 MG/ML VIAL IVP SCH (09:45)
[2019-11-30] MEDS: Cholecalciferol (D-3) 1,000 UNIT (25MCG) TABLET PO SCH (09:45)
[2019-12-01] MEDS: Ipratropium 1 PUFF INHALER IH SCH ×6 (03:09→23:40)
[2019-12-01] MEDS: Piperacillin/Tazobactam 3.375 GM in 0.9 % Sodium Chloride Mini Bag 100 ML IVPB SCH ×2 (04:37→17:25)
[2019-12-01] MEDS: *HR* Heparin 5,000 UNIT/ML VIAL SQ SCH ×3 (04:38→21:27)
[2019-12-01] MEDS: Lactulose Oral Soln 20 GM/30 ML UDC PO SCH (08:26)
[2019-12-01] MEDS: Cholecalciferol (D-3) 1,000 UNIT (25MCG) TABLET PO SCH (08:26)
[2019-12-02] MEDS: Ipratropium 1 PUFF INHALER IH SCH ×5 (03:23→19:54)
[2019-12-02] MEDS: Piperacillin/Tazobactam 3.375 GM in 0.9 % Sodium Chloride Mini Bag 100 ML IVPB SCH ×2 (05:22→16:18)
[2019-12-02] MEDS: *HR* Heparin 5,000 UNIT/ML VIAL SQ SCH ×2 (05:22→16:17)
[2019-12-02] MEDS: Lactulose Oral Soln 20 GM/30 ML UDC PO SCH (08:23)
[2019-12-02] MEDS: Cholecalciferol (D-3) 1,000 UNIT (25MCG) TABLET PO SCH (08:24)
[2019-12-03] MEDS: Ipratropium 1 PUFF INHALER IH SCH ×7 (00:28→23:34)
[2019-12-03] MEDS: *HR* Heparin 5,000 UNIT/ML VIAL SQ SCH ×4 (00:32→21:57)
[2019-12-03] MEDS: Piperacillin/Tazobactam 3.375 GM in 0.9 % Sodium Chloride Mini Bag 100 ML IVPB SCH ×2 (06:24→17:32)
[2019-12-03] MEDS: Lactulose Oral Soln 20 GM/30 ML UDC PO SCH (08:36)
[2019-12-03] MEDS: Cholecalciferol (D-3) 1,000 UNIT (25MCG) TABLET PO SCH (08:36)
[2019-12-04] MEDS: Ipratropium 1 PUFF INHALER IH SCH ×6 (04:06→23:49)
[2019-12-04] MEDS: *HR* Heparin 5,000 UNIT/ML VIAL SQ SCH ×3 (06:20→22:00)
[2019-12-04] MEDS: Cholecalciferol (D-3) 1,000 UNIT (25MCG) TABLET PO SCH (09:24)
[2019-12-04] MEDS: Lactulose Oral Soln 20 GM/30 ML UDC PO SCH (09:25)
[2019-12-05] MEDS: Ipratropium 1 PUFF INHALER IH SCH ×6 (03:58→23:14)
[2019-12-05] MEDS: *HR* Heparin 5,000 UNIT/ML VIAL SQ SCH ×3 (05:28→22:22)
[2019-12-05 06:29] LABS: Basophils % 0.2 %; Eosinophils # 0.2 K/mcL (0.0-0.6); Eosinophils % 1.9 %; Hematocrit 34.8 % (37.5-50.1); Hemoglobin 10.9 g/dL (12.9-16.9); Immature Granulocytes % 0.5 % (0-4); Lymphocytes # 1.8 K/mcL (0.6-4.6); Mean Corpuscular HGB Conc 31.3 g/dL (31.6-35.5); Mean Corpuscular Hemoglobin 29.1 pg (28.0-33.3); Mean Platelet Volume 10.9 fL (9.4-12.4); Monocytes # 0.6 K/mcL (0.0-1.3); Monocytes % 6.4 %; Platelet Count 236 K/mcL (140-400); Red Blood Count 3.74 M/mcL (4.19-5.50); Red Cell Distribution Width 14.4 % (11.5-14.5); White Blood Count 8.6 K/mcL (4.3-11.1)
[2019-12-05 06:59] LABS: Calcium 9.6 mg/dL (8.6-10.3)
[2019-12-05] MEDS: Lactulose Oral Soln 20 GM/30 ML UDC PO SCH (09:00)
[2019-12-05] MEDS: Cholecalciferol (D-3) 1,000 UNIT (25MCG) TABLET PO SCH (09:01)
[2019-12-06 02:18] LABS: Basophils % 0.2 %; Eosinophils # 0.1 K/mcL (0.0-0.6); Eosinophils % 1.7 %; Hemoglobin 11.1 g/dL (12.9-16.9); Immature Granulocytes % 0.2 % (0-4); Lymphocytes # 1.5 K/mcL (0.6-4.6); Lymphocytes % 18.1 %; Mean Corpuscular Hemoglobin 28.1 pg (28.0-33.3); Mean Corpuscular Volume 93.7 fL (83.0-100.0); Mean Platelet Volume 10.9 fL (9.4-12.4); Monocytes # 0.6 K/mcL (0.0-1.3); Monocytes % 6.9 %; Platelet Count 211 K/mcL (140-400); Red Blood Count 3.95 M/mcL (4.19-5.50); Red Cell Distribution Width 14.6 % (11.5-14.5); Segmented Neutrophils % 72.9 %; White Blood Count 8.2 K/mcL (4.3-11.1)
[2019-12-06 02:29] LABS: Calcium 9.3 mg/dL (8.6-10.3)
[2019-12-06] MEDS: Ipratropium 1 PUFF INHALER IH SCH ×4 (03:15→15:15)
[2019-12-06] MEDS: *HR* Heparin 5,000 UNIT/ML VIAL SQ SCH (05:58)
[2019-12-06] MEDS: Cholecalciferol (D-3) 1,000 UNIT (25MCG) TABLET PO SCH (08:51)
[2019-12-06] MEDS: Lactulose Oral Soln 20 GM/30 ML UDC PO SCH (08:51)
[2019-12-06 10:12] VITALS: BP 139/86
== END 2019-12-06 16:37 | DRG 177 ==
LOC: EMEROOARM 20:54 → 2NENU 20:54 → SUATTDRO 11-14 01:51 → 2NENU 11-14 02:06 → SUATTDRO 11-14 11:33 → 2NENU 11-22 18:29
PROVIDERS: ADMIT Student in an Organized Health Care Education/Training Program; ATTEND Internal Medicine